=== PATIENT | male | born 1945 | race Caucasian/White ===

== ENCOUNTER 2020-07-01 12:41 | Inpatient (IN) | payer MEDICARE, OTHER, SELFPAY ==
[2020-07-01] VITALS (8 sets, daily range): BP systolic 113–157; BP diastolic 51–61; PULSE 65–100; RESP 16–18; TEMP 36.5–37.1; O2SAT 99–100
--- NOTE | 2020-07-01 | CT_ITS ---
EXAMINATION: CT ABDOMEN AND PELVIS WITHOUT CONTRAST CLINICAL INFORMATION: Abdominal pain. Gross hematuria. COMPARISON: CT abdomen pelvis 01/02/2013 TECHNIQUE: Multidetector volumetric imaging was performed from the superior aspect of the liver through the pubic symphysis. Sagittal and coronal reformatted images were obtained on the technologist's workstation. This CT examination was performed using dose optimization techniques as appropriate, variously including the following: *Automated exposure control *Adjustment of mA and/or kV according to patient size (this includes techniques or standardized protocols for targeted exams where dose is matched to indication/reason for exam; i.e. extremities or head) *Use of iterative reconstruction technique DLP: 468 mGy-cm FINDINGS: LUNG BASES: The visualized lung bases are unremarkable. LIVER, GALLBLADDER, AND BILIARY TREE: The liver is normal in size, shape, and attenuation. No focal hepatic lesion or biliary ductal dilatation is present. The gallbladder is unremarkable with no evidence of radiopaque gallstones, gallbladder wall thickening, or obvious pericholecystic inflammatory changes. PANCREAS: Unremarkable. SPLEEN: Unremarkable. ADRENAL GLANDS: Unremarkable. KIDNEYS AND URETERS: The kidneys are normal in size, shape, and attenuation. No hydronephrosis, hydroureter, or calculi seen. No perinephric stranding. There are linear vascular calcifications in the renal [place] bilaterally. BLADDER: There is a large lobulated mass at the base of the bladder measuring approximately 6 x 3.5 cm. This is highly suspicious for neoplasm. GASTROINTESTINAL TRACT: The small and large bowel are unremarkable. The appendix is unremarkable. ABDOMINAL WALL: No significant hernia is appreciated. LYMPH NODES: Normal. VASCULAR: Extensive vascular calcifications in the abdomen and pelvis. There is no aneurysm. PELVIC VISCERA: Prostate measures 4.6 cm transverse. Coarse calcifications within the prostate. OSSEOUS STRUCTURES: Multilevel degenerative spondylosis spine. Vacuum disc phenomenon L5-S1 L2-L3 with vertebral endplate osteosclerosis and spurring. There is multilevel degenerative spurs and facet joint arthrosis. There is minimal anterior listhesis of L4 and L5. This is due to facet joint disease. There is no spondylolysis. IMPRESSION: Lobulated mass in the bladder suspicious for neoplasm. Consider direct visualization.
--- NOTE | 2020-07-01 15:10 | ED_ITS ---
HPI - Male Genitourinary General Chief complaint: Urogenital-Male Stated complaint: urinating blood Time Seen by Provider: 07/01/20 15:09 Source: patient Mode of arrival: ambulatory Limitations: no limitations History of Present Illness HPI Narrative: 75 y/o male with history of bladder cancer s/p TURBT in 2018 by SHERRELL Scott with PVD s/p right RKA presents with hematuria x5 days. He was seen by Dr. Sam on Sunday - per patient he was diagnosed with UTI and started on Ciprofloxacin BID. His symptoms have not improved. He now has some central abdominal discomfort and diarrhea as well as chills. MD Complaint: dysuria and other (hematuria ) Onset (ago): day(s) (5) Duration: constant Severity: severe Severity scale (1-10): 10 Quality: burning Relieving factors: none Exacerbating factors: urination Associated symptoms: Reports blood in urine Related Data Sexually active: No Allergies Allergy/AdvReac Type Severity Reaction Status Date / Time No Known Allergies Allergy Unverified 06/17/20 19:08 [No Known Allergies*] Review of Systems Constitutional: Constitutional: Reports chills ENT: Denies dizziness Cardiovascular: Cardiovascular: Denies chest pain, Denies syncope, Denies rapid heart rate and Denies dyspnea Respiratory: Respiratory: Denies dyspnea Gastrointestinal: Gastrointestinal: Reports abdominal pain, Denies melena, Denies hematochezia, Denies change in stool character, Reports diarrhea, Denies nausea and Denies vomiting Genitourinary: Genitourinary: Reports hematuria, Reports dysuria, Denies testicular pain and Reports urinary urgency Musculoskeletal: Musculoskeletal: Denies back pain Neurologic: Denies dizziness and Denies syncope Endocrine: Endocrine: Reports no additional endocrine complaints Hematologic/Lymphatic: Hematologic/Lymphatic: Denies easy bleeding and Denies easy bruising PMFSH Past Medical History Medical History Bladder cancer Social History Social History Alcohol intake: unknown Smoking Status: Smoker, status unknown Smoked in Last 30 Days: No Use of substances other than those prescribed or required for medical reasons: No Advance Directives: No Advance Directives Information Provided: No Physical Exam Vital Signs and I&O and Narrative: Vital Signs and I&O: Vital Signs Temp 98.7 F 07/01/20 19:58 Pulse 84 07/01/20 19:58 Resp 18 07/01/20 19:58 BP 136/51 L 07/01/20 19:58 Pulse Ox 99 07/01/20 15:37 Intake & Output 07/01/20 07/01/20 07/02/20 06:59 18:59 06:59 Intake Total 2049 Balance 2049 Intake: Intake, IV Amoun t 2049 cefTRIAXone so dium 1 gm In 0.9 50 / 50 % Sodium Chlor tadeo 50 ml @ 100 mls/hr IV ONCE ONE Rx#: [id number] 0.9 % Sodium C hloride 1,000 ml 1999 / 1999 @ 999 mls/hr I VCONT .Q1H1M ESAU Rx#:[id number] Const: General: cooperative, healthy appearing, comfortable, no acute distress, well developed, alert and awake Orientation/consciousness: oriented to person, oriented to place and oriented to time HENMT: Head: Yes normal to inspection Ears: hearing grossly normal bilaterally Eyes: General: appearance normal, both eyes and all related structures Neck: Neck: Yes normal visual inspection Chest: Chest palpation & inspection: normal inspection of the chest Resp: Effort & Inspection: normal respiratory effort and able to speak in complete sentences Auscultation: clear to auscultation bilaterally Cardio: Rate: regular rate Rhythm: regular rhythm Heart sounds: S1 normal heart sound present and S2 normal heart sound present GI: Inspection: Yes normal to inspection Palpation (GI): Soft to palpation, Tenderness to palpation present (GI) periumbilically; with no rebound tenderness and no masses Percussion: Yes normal to percussion Auscultation: normal bowel sounds : General: Yes no CVA tenderness Male General Exam: Yes normal external exam Penis: normal penis Meatus: meatus normal Scrotum: scrotum normal Testes: Testes normal Back/Spine/Pelvis: Back: no CVA tenderness Skin: General skin exam: no rashes or lesions noted Neuro: General: oriented to person, oriented to place and oriented to time Course Course Hospital Course: gross hematuria on arrival, dark red with small clots. he states he is on aspirin. no SOB or chest pain. no improvement with Cirpo. Concern for resistance to quinolones. Will contact Urology office for records. Cultures, lactic, UA and labs ordered. Dispo pending results and improvement. Reevaluation(s) Reevaluation #1: hemoglobin 7.9, unknown baseline. per patient and he has been significantly bleeding for the last 5 days. He denies lightheadedness, chest pain, SOB. Admits to fatigue and generalized weakness. 3 way Palmer placed and CBI started - will order 1 unit of PRBC given active bleeding. Time: 16:39 Reevaluation #2: CT scan shows Lobulated mass in the bladder suspicious for neoplasm. Consider direct visualization. CBI going, urine starting to slowly clear. Will call hospitalist for admission. Time: 19:01 Reevaluation #3: Spoke with hospitalist about admission. She is requesting we contact Urology to inform them of the patient's bleeding, Urology has been paged. Will admit. Time: 20:34 MDM - Male Genitourinary MDM Narrative Medical decision making narrative: concern for recurrence of bladder cancer Differential Diagnosis Differential diagnosis: Likely urinary tract infection Lab Data Attestation: I reviewed the patient's lab results. Result diagrams: 07/01/20 15:32 07/01/20 15:32 Labs: Lab Results 07/01/20 07/01/20 07/01/20 Range/Units 15:00 15:32 15:32 WBC 8.8 (4.8-10.8) X10*3/uL RBC 2.58 L (4.60-5.80) X10*6/uL Hgb 7.9 L (14.0-18.0) g/dl Hct 23.6 L (42-52) % MCV 91.5 (80-98) fL MCH 30.6 (27.0-33.0) pg MCHC 33.5 (31.0-36.0) g/dl RDW 12.8 (11.0-16.0) % Plt Count 214 (160-400) X10*3/uL MPV 9.1 L (9.4-12.4) fL Immature Gran % (Auto) 0.5 H (0.0-0.4) % Neut % (Auto) 86.1 H (45-73) % Lymph % (Auto) 7.6 L (20-40) % [place] % (Auto) 5.0 (2-11) % Eos % (Auto) 0.3 (0-4) % Baso % (Auto) 0.5 (0-2) % Neut # (Auto) 7.6 (2.0-8.3) X10*3/uL Lymph # (Auto) 0.7 L (1.2-4.9) X10*3/uL [place] # (Auto) 0.4 (0.1-1.2) X10*3/uL Eos # (Auto) 0.0 (0.0-0.4) X10*3/uL Baso # (Auto) 0.0 (0.0-0.2) X10*3/uL Abs Immat Gran (auto) 0.04 H (0.00-0.03) X10*3/uL Absolute Nucleated RBC 0.000 (0.0-0.012) X10*3/uL Nucleated RBC % (auto) 0.0 (0.0-0.2) /100WBC Smear Tech's Comments VERIFIED PT (10.8-13.0) SEC INR (0.9-1.1) APTT (24.1-38.0) SEC Sodium 135 (135-145) mmol/L Potassium 4.7 (3.3-5.1) mmol/l Chloride 103 (96-108) mmol/L Carbon Dioxide 23 (22-29) mmol/L Anion Gap 14 (12-20) BUN 23 H (9-16) mg/dL Creatinine 1.26 (0.5-1.4) mg/dL Estim Creat Clear Calc TNP Estimated GFR 56 Random Glucose 210 H (60-115) mg/dL Lactic Acid (0.5-2.0) mmol/L Calcium 8.8 (8.4-10.2) mg/dL Urine Color RED Urine Appearance TURBID Urine pH 6.5 (5.0-8.0) Ur Specific [place] 1.020 (1.005-1.025) Urine Protein 3+ H (NEG-TRACE) MG/DL Urine Glucose (UA) 100 H (NEG) MG/DL Urine Ketones 5 (NEG) MG/DL Urine Blood 3+ H (NEG) Urine Nitrite POS H (NEG) Ur Leukocyte Esterase 2+ H (NEG) Urine RBC TNTC H (0) /HPF Urine WBC 5-9 H (0-4) /HPF Ur Squamous Epith Cells NONE /LPF Urine Bacteria TRACE /LPF Blood Type Antibody Screen Crossmatch 07/01/20 07/01/20 07/01/20 Range/Units 16:47 16:47 17:00 WBC (4.8-10.8) X10*3/uL RBC (4.60-5.80) X10*6/uL Hgb (14.0-18.0) g/dl Hct (42-52) % MCV (80-98) fL MCH (27.0-33.0) pg MCHC (31.0-36.0) g/dl RDW (11.0-16.0) % Plt Count (160-400) X10*3/uL MPV (9.4-12.4) fL Immature Gran % (Auto) (0.0-0.4) % Neut % (Auto) (45-73) % Lymph % (Auto) (20-40) % [place] % (Auto) (2-11) % Eos % (Auto) (0-4) % Baso % (Auto) (0-2) % Neut # (Auto) (2.0-8.3) X10*3/uL Lymph # (Auto) (1.2-4.9) X10*3/uL [place] # (Auto) (0.1-1.2) X10*3/uL Eos # (Auto) (0.0-0.4) X10*3/uL Baso # (Auto) (0.0-0.2) X10*3/uL Abs Immat Gran (auto) (0.00-0.03) X10*3/uL Absolute Nucleated RBC (0.0-0.012) X10*3/uL Nucleated RBC % (auto) (0.0-0.2) /100WBC Smear Tech's Comments PT 12.9 (10.8-13.0) SEC INR 1.1 (0.9-1.1) APTT 28.7 (24.1-38.0) SEC Sodium (135-145) mmol/L Potassium (3.3-5.1) mmol/l Chloride (96-108) mmol/L Carbon Dioxide (22-29) mmol/L Anion Gap (12-20) BUN (9-16) mg/dL Creatinine (0.5-1.4) mg/dL Estim Creat Clear Calc Estimated GFR Random Glucose (60-115) mg/dL Lactic Acid 1.1 (0.5-2.0) mmol/L Calcium (8.4-10.2) mg/dL Urine Color Urine Appearance Urine pH (5.0-8.0) Ur Specific [place] (1.005-1.025) Urine Protein (NEG-TRACE) MG/DL Urine Glucose (UA) (NEG) MG/DL Urine Ketones (NEG) MG/DL Urine Blood (NEG) Urine Nitrite (NEG) Ur Leukocyte Esterase (NEG) Urine RBC (0) /HPF Urine WBC (0-4) /HPF Ur Squamous Epith Cells /LPF Urine Bacteria /LPF Blood Type B Positive Antibody Screen NEGATIVE Crossmatch See Detail Discharge Plan Discharge Clinical Impression: Acute blood loss anemia, Urinary tract infection, Bladder tumor Patient Disposition: Admitted As Inpatient
[2020-07-01 15:35] LABS: Glucose Urine UA 100 MG/DL (NEG); Nitrite Urine POS (NEG); PH 6.5 (5.0-8.0); Urine Blood 3+ (NEG); Urine Ketones 5 MG/DL (NEG); Urine Protein 3+ MG/DL (NEG-TRACE)
[2020-07-01 15:39] LABS: Basophils Percent Auto 0.5 % (0-2); Eosinophils Percent Auto 0.3 % (0-4); Hematocrit 23.6 % (42-52); Hemoglobin 7.9 g/dl (14.0-18.0); Imm Gran Abs Auto 0.04 X10*3/uL (0.00-0.03); Imm Gran Pct Auto 0.5 % (0.0-0.4); Lymphocytes Absolute Auto 0.7 X10*3/uL (1.2-4.9); Lymphocytes Percent Auto 7.6 % (20-40); MANUAL DIFF FLAG SCAN; Mean Corpuscular HGB Conc 33.5 g/dl (31.0-36.0); Mean Corpuscular Hemoglobin 30.6 pg (27.0-33.0); Mean Corpuscular Volume 91.5 fL (80-98); Mean Platelet Volume 9.1 fL (9.4-12.4); Monocytes Absolute Auto 0.4 X10*3/uL (0.1-1.2); Neutrophils Absolute Auto 7.6 X10*3/uL (2.0-8.3); Neutrophils Percent Auto 86.1 % (45-73); Platelet Count 214 X10*3/uL (160-400); Red Blood Count 2.58 X10*6/uL (4.60-5.80); Red Cell Distribution Width 12.8 % (11.0-16.0); SCAN SMEAR FLAG 1; White Blood Count 8.8 X10*3/uL (4.8-10.8)
[2020-07-01 15:42] LABS: Appearance Urine TURBID; Color Urine RED
[2020-07-01 15:43] LABS: Leukocyte Esterase Urine 2+ (NEG)
[2020-07-01 15:49] LABS: Bacteria Urine TRACE /LPF; RBC Urine TNTC /HPF (0)
[2020-07-01 16:09] LABS: Anion Gap 14 (12-20); Blood Urea Nitrogen 23 mg/dL (9-16); Calcium 8.8 mg/dL (8.4-10.2); Carbon Dioxide 23 mmol/L (22-29); Chloride 103 mmol/L (96-108); Estimated Glomerular Filt Rate 56; Glucose Random 210 mg/dL (60-115); Potassium 4.7 mmol/l (3.3-5.1); Sodium 135 mmol/L (135-145)
[2020-07-01 16:13] LABS: SLIDE REVIEW VERIFIED
[2020-07-01] MEDS: cefTRIAXone sodium 1 GM in 0.9 % Sodium Chloride 50 ML IV (17:00)
[2020-07-01] MEDS: 0.9 % Sodium Chloride 1,000 ML 999 ML IVCONT ×2 (17:02)
[2020-07-01 17:04] LABS: INTERNATIONAL NORM RATIO 1.1 (0.9-1.1); Prothrombin Time 12.9 SEC (10.8-13.0)
[2020-07-01 17:07] LABS: Partial Thromboplastin Time 28.7 SEC (24.1-38.0)
[2020-07-01 17:19] LABS: Lactic Acid 1.1 mmol/L (0.5-2.0)
[2020-07-01] MEDS: Lidocaine HCl 2 % Urojet 10 ML JEL.PF.APP TOPICAL (18:45)
--- NOTE | 2020-07-01 18:55 | PC.NURSE ---
output of 2300ml red urine. bs showed empty bladder
--- NOTE | 2020-07-01 20:04 | PC.NURSE ---
pt cbi still infusing. large clot manually extracted from catheter. pt denies any increase in pain. plan for insuion of 1 unit of rbc. pt agreeable. conrad james at bedside for consent signing. pt neuro intact.
--- NOTE | 2020-07-01 21:49 | PC.NURSE ---
PT IN SEVERE PAIN, RIKY BOOTHE AWARE. PT BLOOD STARTED
[2020-07-01] MEDS: Morphine Sulfate 4 MG/ML CARTRIDGE IVPUSH (22:09)
--- NOTE | 2020-07-01 22:10 | PC.NURSE ---
PT GIVEN IV MORPHINE FOR PAIN. 3000 CC OF FLUID INTO CATHETER 3000 OUT. PT URINE CLEARING. PENDING NURSE TO NURSE
--- NOTE | 2020-07-01 23:18 | PC.NURSE ---
report faxed to [facility] [place] at this time
--- NOTE | 2020-07-01 23:42 | PC.NURSE ---
pt blood finished, total of 3000 cc of waer into bladder. 3000 cc out of catheter bag. pending transport to [facility] [place]
[2020-07-02] VITALS (7 sets, daily range): BP systolic 102–133; BP diastolic 49–63; PULSE 74–86; RESP 16–20; TEMP 36.6–37; O2SAT 94–97; BMI 22.6
[2020-07-02] MEDS: 0.9 % Sodium Chloride Flush 3 ML SYRINGE 2 ML IVFLUSH ×3 (01:49→23:38)
[2020-07-02] MEDS: 0.9 % Sodium Chloride 1,000 ML 100 ML IVCONT ×3 (01:50→22:02)
--- NOTE | 2020-07-02 05:17 | P.HPIM_ITS ---
History of Present Illness Date of Service: 07/01/20 Chief Complaint: bloody urine this is a 75-year-old male with past medical history of diabetes, hypertension, bladder cancer in 2018, who presents to the hospital after having urine in blood since Sunday. Patient reports that he started having bloody urine on Sunday, went to his urologist on Sunday was given antibiotics, and sent home. Patient continued to have bloody urine until today. He called his urologist this morning and was advised to come to the hospital. He is complaining of dysuria, and frequency as well as right lower quadrant abdominal pain. He has chills with no fever, the abdominal pain is described as sharp, 8/10, nonradiating. Constant. Patient otherwise has no headache, shortness of breath, chest pain, no nausea or vomiting, no lower extremity edema. On arrival to the ED patient hemodynamically stable with no significant abnormal vitals. Blood pressure stable with no tachycardia significant for hemoglob of 7.9, hematocrit of 23.6, BUN of 23 with a creatinine of 1.26. labs otherwise unremarkable. Patient is receiving 1 unit of PRBC and undergoing CBI in the ED patient will be admitted for further management Past medical history: Diabetes, bladder cancer in 2018 s/p TURP, hypertension Surgical history: TURP family history: Denies social history: Comes from home, lives with his , ambulates independently, denies tobacco alcohol or illicit drug Review of Systems Review of Systems: Yes all other systems are reviewed and are negative ENT: Denies dizziness Cardiovascular: Cardiovascular: Denies syncope Neurologic: Denies dizziness and Denies syncope [facility] [place] Medical History Bladder cancer Social History Household Members: Spouse Housing: House Do you presently have visiting nurse or other home services: No Alcohol intake: unknown Smoking Status: Smoker, status unknown Smoked in Last 30 Days: Yes Patient Interested in Nicotine Replacement: No Patient Given Instructions on How to Stop Smoking: No Second Hand Smoke Exposure: No Use of substances other than those prescribed or required for medical reasons: No Currently Displaying Signs/Symptoms of Drug Intoxication Withdrawal: No Any prior treatment program specific to substance use: No Have you been hit, kicked, punched, or otherwise hurt by someone within the past year? If so, by whom?: No Do you feel safe in your current relationship?: Yes Is there a partner from a previous relationship who is making you feel unsafe now?: No Are you made to feel afraid or neglected: No Advance Directives: No Advance Directives Information Provided: No Recently lost weight without trying: No Meds Allergies Allergy/AdvReac Type Severity Reaction Status Date / Time No Known Allergies Allergy Verified 07/01/20 22:12 [No Known Allergies*] Home Medications Medication Instructions Recorded Confirmed Type atorvastatin 20 mg PO BEDTIME 07/01/20 07/01/20 History ciprofloxacin HCl [Cipro] 500 mg PO BID 07/01/20 07/01/20 History glipizide 5 mg PO DAILY 07/01/20 07/01/20 History lisinopril 20 mg PO DAILY 07/01/20 07/01/20 History Physical Exam Vital Signs and Narrative: Vital Signs: Last Vital Signs Temp 97.9 F 07/02/20 03:17 Pulse 75 07/02/20 03:17 Resp 16 07/02/20 03:17 BP 133/63 07/02/20 03:17 Pulse Ox 95 07/02/20 03:17 Body Mass Index 22.6 Const: General: cooperative and no acute distress Orientation/consciousness: patient oriented x3 Eyes: General: appearance normal, both eyes and all related structures Pupils: Equal, round and reactive pupils present Resp: Effort & Inspection: normal respiratory effort, able to speak in complete sentences and abnormal respiratory pattern Auscultation: clear to auscultation bilaterally Cardio: Rate: regular rate Rhythm: regular rhythm GI: Palpation (GI): Soft to palpation Auscultation: normal bowel sounds : Other: CBI in place, Palmer catheterization contains red urine Skin: General skin exam: no rashes or lesions noted Neuro: General: patient oriented x3 Cranial nerves: Yes Equal, round and reactive pupils present Cognition (Neuro): normal cognition Extrem: General: Yes normal to inspection and Yes no pedal edema Results Labs Labs: Laboratory Tests 07/01/20 07/01/20 07/01/20 15:00 15:32 15:32 WBC 8.8 RBC 2.58 L Hgb 7.9 L Hct 23.6 L MCV 91.5 MCH 30.6 MCHC 33.5 RDW 12.8 Plt Count 214 MPV 9.1 L Immature Gran % (Auto) 0.5 H Neut % (Auto) 86.1 H Lymph % (Auto) 7.6 L [place] % (Auto) 5.0 Eos % (Auto) 0.3 Baso % (Auto) 0.5 Neut # (Auto) 7.6 Lymph # (Auto) 0.7 L [place] # (Auto) 0.4 Eos # (Auto) 0.0 Baso # (Auto) 0.0 Abs Immat Gran (auto) 0.04 H Absolute Nucleated RBC 0.000 Nucleated RBC % (auto) 0.0 Smear Tech's Comments VERIFIED PT INR APTT Sodium 135 Potassium 4.7 Chloride 103 Carbon Dioxide 23 Anion Gap 14 BUN 23 H Creatinine 1.26 Estim Creat Clear Calc TNP Estimated GFR 56 Random Glucose 210 H Lactic Acid Calcium 8.8 Urine Color RED Urine Appearance TURBID Urine pH 6.5 Ur Specific [place] 1.020 Urine Protein 3+ H Urine Glucose (UA) 100 H Urine Ketones 5 Urine Blood 3+ H Urine Nitrite POS H Ur Leukocyte Esterase 2+ H Urine RBC TNTC H Urine WBC 5-9 H Ur Squamous Epith Cells NONE Urine Bacteria TRACE Blood Type Antibody Screen Crossmatch 07/01/20 07/01/20 07/01/20 16:47 16:47 17:00 WBC RBC Hgb Hct MCV MCH MCHC RDW Plt Count MPV Immature Gran % (Auto) Neut % (Auto) Lymph % (Auto) [place] % (Auto) Eos % (Auto) Baso % (Auto) Neut # (Auto) Lymph # (Auto) [place] # (Auto) Eos # (Auto) Baso # (Auto) Abs Immat Gran (auto) Absolute Nucleated RBC Nucleated RBC % (auto) Smear Tech's Comments PT 12.9 INR 1.1 APTT 28.7 Sodium Potassium Chloride Carbon Dioxide Anion Gap BUN Creatinine Estim Creat Clear Calc Estimated GFR Random Glucose Lactic Acid 1.1 Calcium Urine Color Urine Appearance Urine pH Ur Specific [place] Urine Protein Urine Glucose (UA) Urine Ketones Urine Blood Urine Nitrite Ur Leukocyte Esterase Urine RBC Urine WBC Ur Squamous Epith Cells Urine Bacteria Blood Type B Positive Antibody Screen NEGATIVE Crossmatch See Detail Assessment and Plan (1) Acute blood loss anemia: Status: Acute this is secondary to hematuria, CT of the abdomen and pelvis showed lobulated mass in the bladder suspicious for neoplasm in a patient who has a history of bladder cancer status post TURP in 2018 hemodynamically stable plan: Receiving 1 units of PRBC follow H&H urology consult (2) Urinary tract infection: Qualifiers: Hematuria presence: with hematuria Urinary tract infection type: acute cystitis Qualified Code(s): N30.01 - Acute cystitis with hematuria Status: Acute has dysuria, frequency, with positive UA plan: continue ceftriaxone follow urine culture (3) Bladder tumor: Status: Acute patient with history of bladder cancer status post TURP in 2018, returns now with hematuria found to have bladder tumor on CT scan plan: - Urology consult for possible cystoscopy and further intervention (4) Hypertension: Status: Acute stable will hold lisinopril in the setting of acute bleed as potential for hypotension (5) Peripheral vascular disease: Status: Acute continue atorvastatin (6) Diabetes: Status: Acute hold glipizide Start low-dose sliding scale insulin and diabetic diet
[2020-07-02 05:27] LABS: MANUAL DIFF FLAG NO
[2020-07-02 05:36] LABS: Basophils Percent Auto 0.3 % (0-2); Hematocrit 24.7 % (42-52); Hemoglobin 8.6 g/dl (14.0-18.0); Imm Gran Abs Auto 0.13 X10*3/uL (0.00-0.03); Imm Gran Pct Auto 0.8 % (0.0-0.4); Lymphocytes Absolute Auto 0.8 X10*3/uL (1.2-4.9); Lymphocytes Percent Auto 5.2 % (20-40); Mean Corpuscular HGB Conc 34.8 g/dl (31.0-36.0); Mean Corpuscular Hemoglobin 31.2 pg (27.0-33.0); Mean Corpuscular Volume 89.5 fL (80-98); Mean Platelet Volume 9.3 fL (9.4-12.4); Monocytes Absolute Auto 1.1 X10*3/uL (0.1-1.2); Neutrophils Absolute Auto 13.7 X10*3/uL (2.0-8.3); Neutrophils Percent Auto 86.7 % (45-73); Platelet Count 194 X10*3/uL (160-400); Red Blood Count 2.76 X10*6/uL (4.60-5.80); Red Cell Distribution Width 13.5 % (11.0-16.0); White Blood Count 15.8 X10*3/uL (4.8-10.8)
[2020-07-02 06:12] LABS: Anion Gap 12 (12-20); Blood Urea Nitrogen 16 mg/dL (9-16); Carbon Dioxide 22 mmol/L (22-29); Chloride 104 mmol/L (96-108); Creatinine Clr Calc Pharmacy 69.4; Estimated Glomerular Filt Rate > 60; Glucose Random 190 mg/dL (60-115); Potassium 3.9 mmol/l (3.3-5.1); Sodium 134 mmol/L (135-145)
[2020-07-02 06:18] LABS: Calcium 7.9 mg/dL (8.4-10.2)
--- NOTE | 2020-07-02 06:34 | PC.NURSE ---
ADMIT TO 484-1: ALERT..ORIENTED X3..SPEECH CLEAR ..RESPIRATIONS EASY..VSS..NSR...CBI INFUSING FROM ER DEPT...GONZALEZ DRAINING PUNCH COLOURED URINE WITH CLOTS...C/O BLADDER PRESSURE WHEN CBI FLOW-RATE SLOWED...HAND IRRIGATED FOR LARGE CLOTS...CBI DRAINING AND RELIEF OF BLADDER PRESSURE PER PATIENT.. CBI CONTINUES TO REQUIRE HIGH FLOW RATE TO MAINTAIN PATENCY
[2020-07-02 07:33] LABS: Glucose, Whole Blood 157 mg/dL (60-115)
[2020-07-02] MEDS: Insulin Lispro 100 UNIT/ML 3 ML VIAL SUBCUT (08:06)
--- NOTE | 2020-07-02 11:16 | MHC.CM.PN ---
CM met with patient at the bedside who reports he is independent and lives with his . Patient does have a HCP, copy requested. Discussed discharge plans home no services. family will provide transport. CM will continue to follow for discharge needs.
[2020-07-02 11:19] LABS: Glucose, Whole Blood 116 mg/dL (60-115)
--- NOTE | 2020-07-02 15:49 | HO.PM.IMPN ---
Subjective Subjective Date of Service: 07/02/20 Interval History: 75-year-old gentleman with past medical history of diabetes hypertension bladder cancer presented to [facility] due to hematuria for last several days patient complained of dysuria and urinary frequency associated with right lower abdominal pain patient was noted to have a hematocrit of 23.6 a creatinine of 1.26 this a.m. patient urine is punched colored receiving CBI complaining of persistent lower abdominal discomfort but denies urinary symptoms, no fever chills overnight no other acute issues. Review of Systems [employer] no headache, no dizziness CVS no chest pain, no palpitation gastroenterology no nausea, no vomiting, no diarrhea skin no rash Physical Exam Vital Signs and I&O and Narrative: Vital Signs and I&O: Vital Signs Temp 98.2 F 07/02/20 11:22 Pulse 75 07/02/20 11:22 Resp 19 07/02/20 11:22 BP 102/53 L 07/02/20 11:22 Pulse Ox 94 07/02/20 11:22 Intake & Output 07/01/20 07/02/20 07/02/20 18:59 06:59 18:59 Intake Total 2049 -8041.667 / -8041. 667 Output Total 650 / 650 9480 / 9480 Balance 1400 / 1400 -78812.667 / -1752 1.667 Urine Output (Aver age ml/kg/hr) 0.76 11.02 Weight 71.668 kg Intake: Intake, Oral Yasmin unt 480 / 480 Intake (Blood Pr oduct) Amount 0 / 0 Red Blood Cell s (E0382) Unit 0 / 0 [id number] Continuous Bladd er Irrigation -9480 / -9480 Fluid - Amount R etained 3-way Urethral -9480 / -9480 Intake, IV Amoun t 2049 958.333 / 958.333 cefTRIAXone so dium 1 gm In 0.9 50 / 50 % Sodium Chlor tadeo 50 ml @ 100 mls/hr IV ONCE ONE Rx#: [id number] 0.9 % Sodium C hloride 1,000 ml 1999 958.333 / 958.333 @ 100 mls/hr I VCONT .Q10H ESAU Rx#:[id number] Output: Output, Urine Am ount (Catheter) 650 / 650 9480 / 9480 3-way Urethral 650 / 650 9480 / 9480 Other: NPO Yes Urine Color Bloody Red Tinged Continuous Bladd er Irrigation Fluid - Amount I nstilled 3-way Urethral 3,000 Continuous Bladd er Irrigation Fluid - Amount D rained 3-way Urethral 3,900 Body Mass Index 22.6 General: no acute distress ,patient oriented x3 Neck is supple Resp: normal respiratory effort, clear to auscultation bilaterally Cardio: Rate: regular rate Rhythm GI: Soft to palpation mild lower abdominal discomfort, normal bowel sounds : Other: CBI in place, Palmer catheterization contains red urine Skin: no rashes or lesions noted Neuro: patient oriented x3 ,normal cognition Extrem: no pedal edema Objective Data Current Medications Generic Name Dose Route Start Last Admin Trade Name Freq PRN Reason Stop Dose Admin Acetaminophen 650 mg 07/02/20 01:32 Acetaminophen 650 Mg Supp.Rect [place] Q6H PRN Pain, Mild (Pain Scale 1-3) Atorvastatin Calcium 20 mg 07/02/20 21:00 Atorvastatin Calcium 20 Mg Tablet PO BEDTIME ESAU Sodium Chloride 1,000 mls @ 100 mls/hr 07/02/20 01:32 07/02/20 11:25 Ns IVCONT 100 mls/hr .Q10H ESAU Administration Ceftriaxone Sodium 1 gm/ 50 mls @ 100 mls/hr 07/02/20 17:00 Sodium Chloride IV Q24H ESAU Insulin Human Lispro 0 unit 07/02/20 07:30 07/02/20 12:16 Insulin Lispro 100 Unit/Ml 3 Ml Vial SUBCUT Not Given QIDACHS [facility] Protocol Magnesium Hydroxide 30 ml 07/02/20 01:32 Milk Of Magnesia 30 Ml Oral.Susp PO DAILY PRN Constipation Ondansetron HCl 4 mg 07/02/20 01:32 Ondansetron Hcl 4 Mg/2 Ml Vial IVPUSH Q8H PRN Nausea and Vomiting Oxycodone HCl 5 mg 07/02/20 01:32 Oxycodone Hcl Immed Release 5 Mg Tablet PO Q6H PRN Pain, Severe (Pain Scale 7-10) Pharmacy Consult 1 each 07/01/20 20:37 Consult Rx Perform Med Rec MISCELLANE ONCE PRN Consult order Sodium Chloride 2 ml 07/02/20 01:32 07/02/20 08:07 0.9 % Sodium Chloride Flush 3 Ml Syringe IVFLUSH 2 ml QSHIFT ESAU Administration Labs CBC & Chem 7: 07/02/20 05:11 07/02/20 05:11 Labs: Laboratory Results - last 24 hr 07/01/20 07/01/20 07/01/20 15:00 15:32 15:32 MCV MCH MCHC RDW Plt Count MPV Immature Gran % (Auto) Neut % (Auto) Lymph % (Auto) [place] % (Auto) Eos % (Auto) Baso % (Auto) Neut # (Auto) Lymph # (Auto) [place] # (Auto) Eos # (Auto) Baso # (Auto) Abs Immat Gran (auto) Absolute Nucleated RBC Nucleated RBC % (auto) Smear Tech's Comments VERIFIED PT INR APTT Anion Gap 14 Estim Creat Clear Calc TNP Estimated GFR 56 POC Glucose Random Glucose 210 H Lactic Acid Calcium 8.8 Urine RBC TNTC H Urine WBC 5-9 H Ur Squamous Epith Cells NONE Urine Bacteria TRACE Blood Type Antibody Screen Crossmatch 07/01/20 07/01/20 07/01/20 16:47 16:47 17:00 MCV MCH MCHC RDW Plt Count MPV Immature Gran % (Auto) Neut % (Auto) Lymph % (Auto) [place] % (Auto) Eos % (Auto) Baso % (Auto) Neut # (Auto) Lymph # (Auto) [place] # (Auto) Eos # (Auto) Baso # (Auto) Abs Immat Gran (auto) Absolute Nucleated RBC Nucleated RBC % (auto) Smear Tech's Comments PT 12.9 INR 1.1 APTT 28.7 Anion Gap Estim Creat Clear Calc Estimated GFR POC Glucose Random Glucose Lactic Acid 1.1 Calcium Urine RBC Urine WBC Ur Squamous Epith Cells Urine Bacteria Blood Type B Positive Antibody Screen NEGATIVE Crossmatch See Detail 07/02/20 07/02/20 07/02/20 05:11 05:11 07:28 MCV 89.5 MCH 31.2 MCHC 34.8 RDW 13.5 Plt Count 194 MPV 9.3 L Immature Gran % (Auto) 0.8 H Neut % (Auto) 86.7 H Lymph % (Auto) 5.2 L [place] % (Auto) 7.0 Eos % (Auto) 0.0 Baso % (Auto) 0.3 Neut # (Auto) 13.7 H Lymph # (Auto) 0.8 L [place] # (Auto) 1.1 Eos # (Auto) 0.0 Baso # (Auto) 0.0 Abs Immat Gran (auto) 0.13 H Absolute Nucleated RBC 0.000 Nucleated RBC % (auto) 0.0 Smear Tech's Comments PT INR APTT Anion Gap 12 Estim Creat Clear Calc 69.4 Estimated GFR > 60 POC Glucose 157 H Random Glucose 190 H Lactic Acid Calcium 7.9 L Urine RBC Urine WBC Ur Squamous Epith Cells Urine Bacteria Blood Type Antibody Screen Crossmatch 07/02/20 11:11 MCV MCH MCHC RDW Plt Count MPV Immature Gran % (Auto) Neut % (Auto) Lymph % (Auto) [place] % (Auto) Eos % (Auto) Baso % (Auto) Neut # (Auto) Lymph # (Auto) [place] # (Auto) Eos # (Auto) Baso # (Auto) Abs Immat Gran (auto) Absolute Nucleated RBC Nucleated RBC % (auto) Smear Tech's Comments PT INR APTT Anion Gap Estim Creat Clear Calc Estimated GFR POC Glucose 116 H Random Glucose Lactic Acid Calcium Urine RBC Urine WBC Ur Squamous Epith Cells Urine Bacteria Blood Type Antibody Screen Crossmatch Microbiology Microbiology Results: Microbiology 07/01/20 16:43 Urine clean catch - Clean Catch Midstream Urine Culture - Preliminary No growth to date. Assessment and Plan (1) Acute blood loss anemia: Status: Acute (2) Urinary tract infection: Status: Acute (3) Bladder tumor: Status: Acute (4) Hypertension: Status: Acute (5) Peripheral vascular disease: Status: Acute (6) Diabetes: Status: Acute Assessment and Plan: acute blood loss anemia due to hematuria patient receive 1 unit of packed RBC hematocrit improved, will continue CBI urine is getting clearer, patient seen by Dr. Fregoso he recommend to continue CBI and follow CBC if patient be hematuria clears then he recommend to discharge patient home to have outpatient cystoscopy but if patient continued with hematuria than it he will undergo cystoscopy on Sunday. likely patient has recurrence of bladder cancer Will follow CBC. UTI will continue IV ceftriaxone and follow urine and blood culture hypertension hold lisinopril due to low normal blood pressure diabetes mellitus blood sugars are stable continue insulin sliding scale and diabetic diet in regard to peripheral vascular disease will continue Lipitor case discussed with Dr. Fregoso and patient inform patient about above plan of care.
[2020-07-02 17:03] LABS: Glucose, Whole Blood 120 mg/dL (60-115)
[2020-07-02] MEDS: cefTRIAXone sodium 1 GM in 0.9 % Sodium Chloride 50 ML IV (17:08)
[2020-07-02 21:11] LABS: Glucose, Whole Blood 120 mg/dL (60-115)
--- NOTE | 2020-07-02 21:59 | PC.NURSE ---
Pt c/o pain to lower abdomen and 3-way beyer catheter noted to have significant amount of drainage coming from around the catheter. The catheter was hand irrigated with large clots removed. Catheter now draining appropriately into collection bag. No further clots. Intake and output unable to measure at this time due to large volume loss in bed. Beyer collection bad drained and a new bag or saline started.
[2020-07-02] MEDS: Atorvastatin Calcium 20 MG TABLET PO (22:02)
[2020-07-03] VITALS (11 sets, daily range): BP systolic 105–152; BP diastolic 52–75; PULSE 67–80; RESP 16–20; TEMP 36.4–37.1; O2SAT 94–98
[2020-07-03 06:32] LABS: MANUAL DIFF FLAG NO
[2020-07-03 06:41] LABS: Basophils Absolute Auto 0.1 X10*3/uL (0.0-0.2); Basophils Percent Auto 0.4 % (0-2); Eosinophils Absolute Auto 0.1 X10*3/uL (0.0-0.4); Eosinophils Percent Auto 0.4 % (0-4); Hemoglobin 7.1 g/dl (14.0-18.0); Imm Gran Abs Auto 0.05 X10*3/uL (0.00-0.03); Imm Gran Pct Auto 0.4 % (0.0-0.4); Lymphocytes Absolute Auto 0.9 X10*3/uL (1.2-4.9); Lymphocytes Percent Auto 7.5 % (20-40); Mean Corpuscular HGB Conc 33.8 g/dl (31.0-36.0); Mean Corpuscular Hemoglobin 31.3 pg (27.0-33.0); Mean Corpuscular Volume 92.5 fL (80-98); Mean Platelet Volume 9.7 fL (9.4-12.4); Monocytes Absolute Auto 0.8 X10*3/uL (0.1-1.2); Monocytes Percent Auto 6.9 % (2-11); Neutrophils Absolute Auto 10.1 X10*3/uL (2.0-8.3); Neutrophils Percent Auto 84.4 % (45-73); Platelet Count 176 X10*3/uL (160-400); Red Blood Count 2.27 X10*6/uL (4.60-5.80)
[2020-07-03] MEDS: 0.9 % Sodium Chloride 1,000 ML 100 ML IVCONT ×2 (07:29→16:24)
[2020-07-03 08:13] LABS: Glucose, Whole Blood 131 mg/dL (60-115)
[2020-07-03] MEDS: Insulin Lispro 100 UNIT/ML 3 ML VIAL SUBCUT (12:20)
[2020-07-03 13:59] LABS: Glucose, Whole Blood 208 mg/dL (60-115)
--- NOTE | 2020-07-03 15:54 | HO.PM.IMPN ---
Subjective Subjective Date of Service: 07/03/20 Interval History: Patient presented due to hematuria of several days duration associated with dysuria and urinary frequency and lower abdominal discomfort. Today patient complaining of persistent lower abdominal cramping discomfort is still passing clots, hematocrit dropped to 21 patient received 1 units of packed RBC yesterday. Review of Systems General no fever, no chills no headache or dizziness CVS no chest pain, no palpitation Rrespiratory no cough no sputum, no shortness of breath Physical Exam Vital Signs and I&O and Narrative: Vital Signs and I&O: Vital Signs Temp 98 F 07/03/20 14:49 Pulse 67 07/03/20 14:49 Resp 18 07/03/20 14:49 BP 124/70 07/03/20 14:49 Pulse Ox 97 07/03/20 07:58 Intake & Output 07/02/20 07/03/20 07/03/20 18:59 06:59 18:59 Intake Total -8291.667 / -9391. 667 -1100 / -9391.667 -2705 / -2705 Output Total 9780 / 70477 2100 / 28987 4350 / 4350 Balance -35826.667 / -2127 1.667 -3200 / -09346.667 -7055 / -7055 Urine Output (Aver age ml/kg/hr) 11.37 2.44 5.06 Intake: Intake, Oral [place] unt 480 / 480 Intake (Blood Pr oduct) Amount 700 / 700 Red Blood Cell s (E0382) Unit 350 / 350 [id number] Red Blood Cell s (E0382) Unit 350 / 350 [id number] Continuous Bladd er Irrigation -9780 / -43567 -2100 / -34359 -4350 / -4350 Fluid - Amount R etained 3-way Urethral -9780 / -08460 -2100 / -06226 -4350 / -4350 Intake, IV Amoun t 1007.333 / 33 3 999 945 / 945 cefTRIAXone so dium 1 gm In 0.9 50 / 50 % Sodium Chlor tadeo 50 ml @ 100 mls/hr IV Q24H ESAU Rx#: [id number] 0.9 % Sodium C hloride 1,000 ml 958.333 / 7271.644 2599 / 1957.333 945 / 945 @ 100 mls/hr I VCONT .Q10H ESAU Rx#:[id number] Output: Output, Urine Am ount (Catheter) 9780 / 05735 2100 / 17035 4350 / 4350 3-way Urethral 9780 / 32380 2100 / 01177 4350 / 4350 Other: Breakfast % Eate n 100% Lunch % Eaten 100% Number of Bowel Movements 1 Urine CBI Urine Color Red Tinged Red Tinged [place] Tinged Continuous Bladd er Irrigation Fluid - Amount I nstilled 3-way Urethral 3,000 9,000 3,000 Continuous Bladd er Irrigation Fluid - Amount D rained 3-way Urethral 3,100 9,900 3,750 Body Mass Index 22.6 General: no acute distress ,patient oriented x3 Neck supple Resp: normal respiratory effort, clear to auscultation bilaterally Cardio: Rate: regular rate Rhythm GI: Soft to palpation mild lower abdominal discomfort, normal bowel sounds : Other: CBI in place, Palmer catheterization contains punch colored urine with few clots Skin: no rashes or lesions noted Neuro: patient oriented x3 ,normal cognition Extrem: no pedal edema Objective Data Current Medications Generic Name Dose Route Start Last Admin Trade Name Freq PRN Reason Stop Dose Admin Acetaminophen 650 mg 07/02/20 01:32 Acetaminophen 650 Mg Supp.Rect [place] Q6H PRN Pain, Mild (Pain Scale 1-3) Atorvastatin Calcium 20 mg 07/02/20 21:00 07/02/20 22:02 Atorvastatin Calcium 20 Mg Tablet PO 20 mg BEDTIME ESAU Administration Sodium Chloride 1,000 mls @ 100 mls/hr 07/02/20 01:32 07/03/20 07:29 Ns IVCONT 100 mls/hr .Q10H ESAU Administration Ceftriaxone Sodium 1 gm/ 50 mls @ 100 mls/hr 07/02/20 17:00 07/02/20 18:12 Sodium Chloride IV Infused Q24H ESAU Infusion Insulin Human Lispro 0 unit 07/02/20 07:30 07/03/20 12:20 Insulin Lispro 100 Unit/Ml 3 Ml Vial SUBCUT 4 unit QIDACHS ESAU Administration Protocol Magnesium Hydroxide 30 ml 07/02/20 01:32 Milk Of Magnesia 30 Ml Oral.Susp PO DAILY PRN Constipation Ondansetron HCl 4 mg 07/02/20 01:32 Ondansetron Hcl 4 Mg/2 Ml Vial IVPUSH Q8H PRN Nausea and Vomiting Oxycodone HCl 5 mg 07/02/20 01:32 Oxycodone Hcl Immed Release 5 Mg Tablet PO Q6H PRN Pain, Severe (Pain Scale 7-10) Pharmacy Consult 1 each 07/01/20 20:37 Consult Rx Perform Med Rec MISCELLANE ONCE PRN Consult order Sodium Chloride 2 ml 07/02/20 01:32 07/03/20 07:30 0.9 % Sodium Chloride Flush 3 Ml Syringe IVFLUSH Not Given QSHIFT [facility] Labs CBC & Chem 7: 07/03/20 05:50 07/02/20 05:11 Labs: Laboratory Results - last 24 hr 07/01/20 07/02/20 07/02/20 17:00 16:59 21:07 MCV MCH MCHC RDW Plt Count MPV Immature Gran % (Auto) Neut % (Auto) Lymph % (Auto) [place] % (Auto) Eos % (Auto) Baso % (Auto) Neut # (Auto) Lymph # (Auto) [place] # (Auto) Eos # (Auto) Baso # (Auto) Abs Immat Gran (auto) Absolute Nucleated RBC Nucleated RBC % (auto) POC Glucose 120 H 120 H Blood Type B Positive Antibody Screen NEGATIVE Crossmatch See Detail 07/03/20 07/03/20 07/03/20 05:50 07:57 11:18 MCV 92.5 MCH 31.3 MCHC 33.8 RDW 14.0 Plt Count 176 MPV 9.7 Immature Gran % (Auto) 0.4 Neut % (Auto) 84.4 H Lymph % (Auto) 7.5 L [place] % (Auto) 6.9 Eos % (Auto) 0.4 Baso % (Auto) 0.4 Neut # (Auto) 10.1 H Lymph # (Auto) 0.9 L [place] # (Auto) 0.8 Eos # (Auto) 0.1 Baso # (Auto) 0.1 Abs Immat Gran (auto) 0.05 H Absolute Nucleated RBC 0.000 Nucleated RBC % (auto) 0.0 POC Glucose 131 H 208 H Blood Type Antibody Screen Crossmatch Microbiology Microbiology Results: Microbiology 07/01/20 16:43 Urine clean catch - Clean Catch Midstream Urine Culture - Final No growth. 07/01/20 16:47 Blood - Venous Blood Culture - Preliminary No growth after 24 hours. 07/01/20 16:47 Blood - Venous Blood Culture - Preliminary No growth after 24 hours. Assessment and Plan (1) Acute blood loss anemia: Status: Acute (2) Urinary tract infection: Status: Acute (3) Bladder tumor: Status: Acute (4) Hypertension: Status: Acute (5) Peripheral vascular disease: Status: Acute (6) Diabetes: Status: Acute Assessment and Plan: acute blood loss anemia due to hematuria patient receive 1 unit of packed RBC hematocrit improved, but due to persistent hematuria hematocrit dropped again today to 21 will transfuse 2 units of packed RBC will continue CBI urine patient seen by Dr. Fregoso he recommend to continue CBI and follow CBC if patient hematuria clears then he recommend to discharge patient home to have outpatient cystoscopy but if patient continued with hematuria than it he will undergo cystoscopy on Sunday. likely patient has recurrence of bladder cancer follow CBC tonight and again at a.m. will add belladonna suppository for abdominal cramping and continue oxycodone as needed. UTI will continue IV ceftriaxone urine and blood culture showed no growth hypertension BP trending up will resume lisinopril diabetes mellitus blood sugars are stable continue insulin sliding scale and diabetic diet in regard to peripheral vascular disease will continue Lipitor
[2020-07-03] MEDS: cefTRIAXone sodium 1 GM in 0.9 % Sodium Chloride 50 ML IV (16:23)
[2020-07-03 16:42] LABS: Glucose, Whole Blood 130 mg/dL (60-115)
[2020-07-03 20:19] LABS: Hematocrit 25.6 % (42-52); Hemoglobin 8.9 g/dl (14.0-18.0); Mean Corpuscular HGB Conc 34.8 g/dl (31.0-36.0); Mean Corpuscular Hemoglobin 31.2 pg (27.0-33.0); Mean Corpuscular Volume 89.8 fL (80-98); Mean Platelet Volume 9.4 fL (9.4-12.4); Platelet Count 166 X10*3/uL (160-400); Red Blood Count 2.85 X10*6/uL (4.60-5.80); Red Cell Distribution Width 13.3 % (11.0-16.0); White Blood Count 12.8 X10*3/uL (4.8-10.8)
[2020-07-03 21:16] LABS: Glucose, Whole Blood 156 mg/dL (60-115)
[2020-07-03] MEDS: Atorvastatin Calcium 20 MG TABLET PO (21:39)
[2020-07-04] VITALS (8 sets, daily range): BP systolic 108–130; BP diastolic 50–68; PULSE 63–82; RESP 16–20; TEMP 36.4–37.2; O2SAT 93–98
[2020-07-04] MEDS: 0.9 % Sodium Chloride Flush 3 ML SYRINGE 2 ML IVFLUSH ×4 (00:06→22:08)
[2020-07-04] MEDS: 0.9 % Sodium Chloride 1,000 ML 100 ML IVCONT ×3 (02:50→23:31)
[2020-07-04 07:06] LABS: Hematocrit 26.2 % (42-52); Hemoglobin 8.7 g/dl (14.0-18.0); Mean Corpuscular HGB Conc 33.2 g/dl (31.0-36.0); Mean Corpuscular Hemoglobin 31.8 pg (27.0-33.0); Mean Corpuscular Volume 95.6 fL (80-98); Mean Platelet Volume 10.5 fL (9.4-12.4); Platelet Count 148 X10*3/uL (160-400); Red Blood Count 2.74 X10*6/uL (4.60-5.80); Red Cell Distribution Width 13.9 % (11.0-16.0); White Blood Count 9.5 X10*3/uL (4.8-10.8)
[2020-07-04 08:13] LABS: Glucose, Whole Blood 142 mg/dL (60-115)
[2020-07-04] MEDS: lisinopriL 10 MG TABLET PO (10:16)
[2020-07-04 11:40] LABS: Glucose, Whole Blood 184 mg/dL (60-115)
[2020-07-04] MEDS: oxyCODONE HCl Immed Release 5 MG TABLET PO ×2 (12:22→20:06)
[2020-07-04] MEDS: Insulin Lispro 100 UNIT/ML 3 ML VIAL SUBCUT (13:07)
--- NOTE | 2020-07-04 14:05 | P.PNIM_ITS ---
Subjective Subjective Interval History: Patient presented due to hematuria of several days duration associated with dysuria and urinary frequency and lower abdominal discomfort. persistent lower abdominal cramping pain, still passing clots, hematocrit improved after 2 units of packed RBC review of systems Constitutional no fever chills, CVS no chest pain, no palpitation. Gastrointestinal no nausea no vomiting no diarrhea Physical Exam Vital Signs and I&O and Narrative: Vital Signs and I&O: Vital Signs Temp 97.7 F 07/04/20 11:33 Pulse 68 07/04/20 11:33 Resp 16 07/04/20 11:33 BP 108/57 L 07/04/20 11:33 Pulse Ox 97 07/04/20 11:33 Intake & Output 07/03/20 07/04/20 07/04/20 18:59 06:59 18:59 Intake Total -2523.333 / -2623. 333 -100 / -2623.333 1000 / 1000 Output Total 5350 / 6450 1100 / 6450 Balance -7873.333 / -9073. 333 -1200 / -9073.333 1000 / 1000 Urine Output (Aver age ml/kg/hr) 6.22 1.28 1.28 Intake: Intake, Oral Yasmin unt 240 / 240 Intake (Blood Pr oduct) Amount 700 / 700 Red Blood Cell s (E0382) Unit 350 / 350 [id number] Red Blood Cell s (E0382) Unit 350 / 350 [id number] Continuous Bladd er Irrigation -5350 / -6450 -1100 / -6450 Fluid - Amount R etained 3-way Urethral -5350 / -6450 -1100 / -6450 Intake, IV Amoun t 1886.667 / 2886.66 7 1000 / 2886.667 1000 / 1000 cefTRIAXone so dium 1 gm In 0.9 50 / 50 % Sodium Chlor tadeo 50 ml @ 100 mls/hr IV Q24H ESAU Rx#: [id number] 0.9 % Sodium C hloride 1,000 ml 1836.667 / 2836.66 7 1000 / 2836.667 1000 / 1000 @ 100 mls/hr I VCONT .Q10H ESAU Rx#:[id number] Output: Output, Urine Am ount (Catheter) 5350 / 6450 1100 / 6450 3-way Urethral 5350 / 6450 1100 / 6450 Other: Breakfast % Eate n 100% 75% Lunch % Eaten 100% 50% Dinner % Eaten 50% Number of Bowel Movements [address] Tinged Red Tinged Stool Bedpan Stool Color Dark Brown Stool Consistenc y Pasty Continuous Bladd er Irrigation Fluid - Amount I nstilled 3-way Urethral 3,000 9,000 Continuous Bladd er Irrigation Fluid - Amount D rained 3-way Urethral 4,000 9,700 Body Mass Index 22.6 General: no acute distress ,patient oriented x3 Neck supple Resp: normal respiratory effort, clear to auscultation bilaterally Cardio: Rate: regular rate Rhythm GI: Soft to palpation mild lower abdominal discomfort, normal bowel sounds : Other: CBI in place, Palmer catheterization contains punch colored urine with few clots Skin: no rashes or lesions noted Neuro: patient oriented x3 ,normal cognition Extrem: no pedal edema Objective Data Current Medications Generic Name Dose Route Start Last Admin Trade Name Freq PRN Reason Stop Dose Admin Acetaminophen 650 mg 07/02/20 01:32 Acetaminophen 650 Mg Supp.Rect [place] Q6H PRN Pain, Mild (Pain Scale 1-3) Atorvastatin Calcium 20 mg 07/02/20 21:00 07/03/20 21:39 Atorvastatin Calcium 20 Mg Tablet PO 20 mg BEDTIME ESAU Administration Sodium Chloride 1,000 mls @ 100 mls/hr 07/02/20 01:32 07/04/20 13:03 Ns IVCONT 100 mls/hr .Q10H ESAU Administration Ceftriaxone Sodium 1 gm/ 50 mls @ 100 mls/hr 07/02/20 17:00 07/03/20 17:05 Sodium Chloride IV Infused Q24H ESAU Infusion Insulin Human Lispro 0 unit 07/02/20 07:30 07/04/20 13:07 Insulin Lispro 100 Unit/Ml 3 Ml Vial SUBCUT 2 unit QIDACHS ESAU Administration Protocol Lisinopril 10 mg 07/04/20 09:00 07/04/20 10:16 Lisinopril 10 Mg Tablet PO 10 mg DAILY ESAU Administration Protocol Magnesium Hydroxide 30 ml 07/02/20 01:32 Milk Of Magnesia 30 Ml Oral.Susp PO DAILY PRN Constipation Ondansetron HCl 4 mg 07/02/20 01:32 Ondansetron Hcl 4 Mg/2 Ml Vial IVPUSH Q8H PRN Nausea and Vomiting Oxycodone HCl 5 mg 07/02/20 01:32 07/04/20 12:22 Oxycodone Hcl Immed Release 5 Mg Tablet PO 5 mg Q6H PRN Administration Pain, Severe (Pain Scale 7-10) Pharmacy Consult 1 each 07/01/20 20:37 Consult Rx Perform Med Rec MISCELLANE ONCE PRN Consult order Sodium Chloride 2 ml 07/02/20 01:32 07/04/20 08:33 0.9 % Sodium Chloride Flush 3 Ml Syringe IVFLUSH Not Given QSHIFT [facility] Labs CBC & Chem 7: 07/04/20 05:54 07/02/20 05:11 Labs: Laboratory Results - last 24 hr 07/01/20 07/03/20 07/03/20 17:00 16:34 20:09 MCV 89.8 MCH 31.2 MCHC 34.8 RDW 13.3 Plt Count 166 MPV 9.4 Absolute Nucleated RBC 0.000 Nucleated RBC % (auto) 0.0 POC Glucose 130 H Crossmatch See Detail 07/03/20 07/04/20 07/04/20 21:09 05:54 08:02 MCV 95.6 D MCH 31.8 MCHC 33.2 RDW 13.9 Plt Count 148 L MPV 10.5 Absolute Nucleated RBC 0.000 Nucleated RBC % (auto) 0.0 POC Glucose 156 H 142 H Crossmatch 07/04/20 11:32 MCV MCH MCHC RDW Plt Count MPV Absolute Nucleated RBC Nucleated RBC % (auto) POC Glucose 184 H Crossmatch Microbiology Microbiology Results: Microbiology 07/01/20 16:47 Blood - Venous Blood Culture - Preliminary No growth after 48 hours. 07/01/20 16:47 Blood - Venous Blood Culture - Preliminary No growth after 48 hours. 07/01/20 16:43 Urine clean catch - Clean Catch Midstream Urine Culture - Final No growth. Assessment and Plan (1) Acute blood loss anemia: Status: Acute (2) Urinary tract infection: Status: Acute (3) Bladder tumor: Status: Acute (4) Hypertension: Status: Acute (5) Peripheral vascular disease: Status: Acute (6) Diabetes: Status: Acute Assessment and Plan: acute blood loss anemia due to hematuria patient received total 3 units of packed RBC hematocrit improved to 26.2 today, will continue CBI and follow CBC closely will re-consult Dr. Fregoso tomorrow morning patient might need cystoscopy due to persistent hematuria and passing clots, likely patient has recurrence of bladder cancer follow CBC tonight and at a.m. continue belladonna suppository and oxycodone for abdominal cramping. UTI will continue IV ceftriaxone for possible cystoscopy, urine and blood culture showed no growth hypertension BP is stable on low-dose lisinopril 10 mg daily home dose lisinopril 20 mg daily diabetes mellitus blood sugars are stable continue insulin sliding scale and diabetic diet Peripheral vascular disease will continue Lipitor
--- NOTE | 2020-07-04 14:35 | P.PNUR_ITS ---
Subjective Subjective Patient reports: no new complaints Interval history: mild hematuria on CBI no clots Sons present in rooms if persist would do TURBT tomorrow known bladder cancer history Physical Exam Vital Signs and I&O and Narrative: Vital Signs and I&O: Vital Signs Temp 97.7 F 07/04/20 11:33 Pulse 68 07/04/20 11:33 Resp 16 07/04/20 11:33 BP 108/57 L 07/04/20 11:33 Pulse Ox 97 07/04/20 11:33 Intake & Output 07/03/20 07/04/20 07/04/20 18:59 06:59 18:59 Intake Total -2523.333 / -2623. 333 -100 / -2623.333 1000 / 1000 Output Total 5350 / 6450 1100 / 6450 Balance -7873.333 / -9073. 333 -1200 / -9073.333 1000 / 1000 Urine Output (Aver age ml/kg/hr) 6.22 1.28 1.28 Intake: Intake, Oral [place] unt 240 / 240 Intake (Blood Pr oduct) Amount 700 / 700 Red Blood Cell s (E0382) Unit 350 / 350 [id number] Red Blood Cell s (E0382) Unit 350 / 350 [id number] Continuous Bladd er Irrigation -5350 / -6450 -1100 / -6450 Fluid - Amount R etained 3-way Urethral -5350 / -6450 -1100 / -6450 Intake, IV Amoun t 1886.667 / 2886.66 7 1000 / 2886.667 1000 / 1000 cefTRIAXone so dium 1 gm In 0.9 50 / 50 % Sodium Chlor tadeo 50 ml @ 100 mls/hr IV Q24H [facility] Rx#: [id number] 0.9 % Sodium C hloride 1,000 ml 1836.667 / 2836.66 7 1000 / 2836.667 1000 / 1000 @ 100 mls/hr I VCONT .Q10H [facility] Rx#:[id number] Output: Output, Urine Am ount (Catheter) 5350 / 6450 1100 / 6450 3-way Urethral 5350 / 6450 1100 / 6450 Other: Breakfast % Eate n 100% 75% Lunch % Eaten 100% 50% Dinner % Eaten 50% Number of Bowel Movements 1 1 Urine Color [place] Tinged Red Tinged Stool Bedpan Stool Color Dark Brown Stool Consistenc y Pasty Continuous Bladd er Irrigation Fluid - Amount I nstilled 3-way Urethral 3,000 9,000 Continuous Bladd er Irrigation Fluid - Amount D rained 3-way Urethral 4,000 9,700 Body Mass Index 22.6 Const: General: cooperative, healthy appearing, comfortable and no acute distress Nutritional Appearance: average body habitus Orientation/consciousness: oriented to person, oriented to place and oriented to time Eyes: General: appearance normal, both eyes and all related structures Chest: Chest palpation & inspection: normal inspection of the chest Resp: Effort & Inspection: normal respiratory effort Cardio: Rate: regular rate GI: Inspection: Yes normal to inspection Skin: Hair: normal Neuro: General: oriented to person, oriented to place and oriented to time Extrem: General: Yes normal to inspection Progress Note: A&P Assessment and plan (1) Bladder tumor: Problem details: as above possible or tomorrow npo after 2400 Status: Acute Fall Risk Details Current Medications: Current Medications Generic Name Dose Route Start Last Admin Trade Name Freq PRN Reason Stop Dose Admin Acetaminophen 650 mg 07/02/20 01:32 Acetaminophen 650 Mg Supp.Rect [place] Q6H PRN Pain, Mild (Pain Scale 1-3) Atorvastatin Calcium 20 mg 07/02/20 21:00 07/03/20 21:39 Atorvastatin Calcium 20 Mg Tablet PO 20 mg BEDTIME [facility] Administration Belladonna Alkaloids/Opium 1 supp 07/04/20 14:17 Opium/Belladonna 60/16.2 Supp.Rect [place] BID PRN Perineal Discomfort Sodium Chloride 1,000 mls @ 100 mls/hr 07/02/20 01:32 07/04/20 13:03 Ns IVCONT 100 mls/hr .Q10H [facility] Administration Ceftriaxone Sodium 1 gm/ 50 mls @ 100 mls/hr 07/02/20 17:00 07/03/20 17:05 Sodium Chloride IV Infused Q24H [facility] Infusion Insulin Human Lispro 0 unit 07/02/20 07:30 07/04/20 13:07 Insulin Lispro 100 Unit/Ml 3 Ml Vial SUBCUT 2 unit QIDACHS [facility] Administration Protocol Lisinopril 10 mg 07/04/20 09:00 07/04/20 10:16 Lisinopril 10 Mg Tablet PO 10 mg DAILY [facility] Administration Protocol Magnesium Hydroxide 30 ml 07/02/20 01:32 Milk Of Magnesia 30 Ml Oral.Susp PO DAILY PRN Constipation Ondansetron HCl 4 mg 07/02/20 01:32 Ondansetron Hcl 4 Mg/2 Ml Vial IVPUSH Q8H PRN Nausea and Vomiting Oxycodone HCl 5 mg 07/02/20 01:32 07/04/20 12:22 Oxycodone Hcl Immed Release 5 Mg Tablet PO 5 mg Q6H PRN Administration Pain, Severe (Pain Scale 7-10) Pharmacy Consult 1 each 07/01/20 20:37 Consult Rx Perform Med Rec MISCELLANE ONCE PRN Consult order Sodium Chloride 2 ml 07/02/20 01:32 07/04/20 08:33 0.9 % Sodium Chloride Flush 3 Ml Syringe IVFLUSH Not Given QSHIFT [facility] Time Spent With Patient Time: Total time spent is greater than 50% in coordination of care (as documented) at patient's floor/unit and/or counseling patient: Time with patient: 15 - 24 minutes
[2020-07-04] MEDS: cefTRIAXone sodium 1 GM in 0.9 % Sodium Chloride 50 ML IV (16:11)
[2020-07-04 16:43] LABS: Glucose, Whole Blood 213 mg/dL (60-115)
[2020-07-04] MEDS: Atorvastatin Calcium 20 MG TABLET PO (20:06)
[2020-07-04 21:19] LABS: Glucose, Whole Blood 209 mg/dL (60-115)
[2020-07-05] VITALS (16 sets, daily range): BP systolic 101–133; BP diastolic 51–96; PULSE 61–93; RESP 16–20; TEMP 36.3–37.3; O2SAT 93–99
[2020-07-05 06:12] LABS: MANUAL DIFF FLAG NO
[2020-07-05 06:18] LABS: Basophils Absolute Auto 0.1 X10*3/uL (0.0-0.2); Basophils Percent Auto 0.8 % (0-2); Eosinophils Absolute Auto 0.4 X10*3/uL (0.0-0.4); Eosinophils Percent Auto 4.6 % (0-4); Hematocrit 23.3 % (42-52); Hemoglobin 7.7 g/dl (14.0-18.0); Imm Gran Abs Auto 0.03 X10*3/uL (0.00-0.03); Imm Gran Pct Auto 0.4 % (0.0-0.4); Lymphocytes Percent Auto 11.9 % (20-40); Mean Corpuscular Hemoglobin 30.6 pg (27.0-33.0); Mean Corpuscular Volume 92.5 fL (80-98); Mean Platelet Volume 9.5 fL (9.4-12.4); Monocytes Absolute Auto 0.7 X10*3/uL (0.1-1.2); Neutrophils Absolute Auto 5.9 X10*3/uL (2.0-8.3); Neutrophils Percent Auto 73.3 % (45-73); Platelet Count 202 X10*3/uL (160-400); Red Blood Count 2.52 X10*6/uL (4.60-5.80)
[2020-07-05 06:54] LABS: Anion Gap 9 (12-20); Blood Urea Nitrogen 11 mg/dL (9-16); Calcium 7.4 mg/dL (8.4-10.2); Carbon Dioxide 23 mmol/L (22-29); Chloride 107 mmol/L (96-108); Creatinine Clr Calc Pharmacy 81.3; Estimated Glomerular Filt Rate > 60; Glucose Random 205 mg/dL (60-115); Potassium 4.3 mmol/l (3.3-5.1); Sodium 135 mmol/L (135-145)
[2020-07-05 07:59] LABS: Glucose, Whole Blood 192 mg/dL (60-115)
[2020-07-05] MEDS: lisinopriL 10 MG TABLET PO (09:17)
[2020-07-05] MEDS: oxyCODONE HCl Immed Release 5 MG TABLET PO ×2 (09:18→21:37)
--- NOTE | 2020-07-05 11:26 | P.PNUR_ITS ---
Subjective Subjective Patient reports: no new complaints Interval history: hematuria resolving plan for TURBT today Had discussed with sons yesterday no questions Physical Exam Vital Signs and I&O and Narrative: Vital Signs and I&O: Vital Signs Temp 97.9 F 07/05/20 11:24 Pulse 61 07/05/20 11:24 Resp 20 07/05/20 11:24 BP 108/55 L 07/05/20 11:24 Pulse Ox 98 07/05/20 08:00 Intake & Output 07/04/20 07/05/20 07/05/20 18:59 06:59 18:59 Intake Total 1050 / -3850 -4900 / -3850 800 / 800 Output Total 2099 Balance -1050 / -5950 -4900 / -5950 800 / 800 Urine Output (Aver age ml/kg/hr) 2.44 2.44 2.44 Intake: Intake, Oral [place] unt 200 / 200 Intake (Blood Pr oduct) Amount 0 / 0 Red Blood Cell s (E0382) Unit 0 / 0 [id number] Continuous Bladd er Irrigation -6100 / -6100 -200 / -200 Fluid - Amount R etained Intake, IV Amoun t 1050 / 2050 1000 / 2050 1000 / 1000 cefTRIAXone so dium 1 gm In 0.9 50 / 50 % Sodium Chlor tadeo 50 ml @ 100 mls/hr IV Q24H [facility] Rx#: [id number] 0.9 % Sodium C hloride 1,000 ml 1000 / 2000 1000 / 2000 1000 / 1000 @ 100 mls/hr I VCONT .Q10H [facility] Rx#:[id number] Output: Output, Urine Am ount (Catheter) 2099 3-way Urethral 2099 Other: NPO Yes Breakfast % Eate n 75% Lunch % Eaten 50% Dinner % Eaten 100% Number of Bowel Movements 1 Urine Color [place] Tinged Red Tinged Red Tinged Stool Bedpan Stool Color Dark Brown Stool Consistenc y Pasty Continuous Bladd er Irrigation 3,000 3,000 Fluid - Amount I nstilled Continuous Bladd er Irrigation 3,600 3,200 Fluid - Amount D rained Body Mass Index 22.6 Const: General: cooperative, healthy appearing, comfortable and no acute distress Nutritional Appearance: average body habitus Orientation/c onsciousness: oriented to person, oriented to place and oriented to time Eyes: General: appearance normal, both eyes and all related structures Chest: Chest palpation & inspection: normal inspection of the chest Resp: Effort & Inspection: normal respiratory effort Cardio: Rate: regular rate GI: Inspection: Yes normal to inspection Skin: Hair: normal Neuro: General: oriented to person, oriented to place and oriented to time Extrem: General: Yes normal to inspection Progress Note: A&P Assessment and plan (1) Bladder tumor: Status: Acute Assessment and Plan: Bladder tumor OR for TURBT from hematuria Fall Risk Details Current Medications: Current Medications Generic Name Dose Route Start Last Admin Trade Name Freq PRN Reason Stop Dose Admin Acetaminophen 650 mg 07/02/20 01:32 Acetaminophen 650 Mg Supp.Rect [place] Q6H PRN Pain, Mild (Pain Scale 1-3) Atorvastatin Calcium 20 mg 07/02/20 21:00 07/04/20 20:06 Atorvastatin Calcium 20 Mg Tablet PO 20 mg BEDTIME [facility] Administration Belladonna Alkaloids/Opium 1 supp 07/04/20 14:17 07/04/20 16:13 Opium/Belladonna 60/16.2 Supp.Rect [place] 1 supp BID PRN Administration Perineal Discomfort Ceftriaxone Sodium 1 gm/ 50 mls @ 100 mls/hr 07/02/20 17:00 07/04/20 17:23 Sodium Chloride IV Infused Q24H [facility] Infusion Insulin Human Lispro 0 unit 07/02/20 07:30 07/05/20 08:10 Insulin Lispro 100 Unit/Ml 3 Ml Vial SUBCUT Not Given QIDACHS [facility] Protocol Lisinopril 10 mg 07/04/20 09:00 07/05/20 09:17 Lisinopril 10 Mg Tablet PO 10 mg DAILY [facility] Administration Protocol Magnesium Hydroxide 30 ml 07/02/20 01:32 Milk Of Magnesia 30 Ml Oral.Susp PO DAILY PRN Constipation Ondansetron HCl 4 mg 07/02/20 01:32 Ondansetron Hcl 4 Mg/2 Ml Vial IVPUSH Q8H PRN Nausea and Vomiting Oxycodone HCl 5 mg 07/02/20 01:32 07/05/20 09:18 Oxycodone Hcl Immed Release 5 Mg Tablet PO 5 mg Q6H PRN Administration Pain, Severe (Pain Scale 7-10) Pharmacy Consult 1 each 07/01/20 20:37 Consult Rx Perform Med Rec MISCELLANE ONCE PRN Consult order Sodium Chloride 2 ml 07/02/20 01:32 07/04/20 22:08 0.9 % Sodium Chloride Flush 3 Ml Syringe IVFLUSH 2 ml QSHIFT [facility] Administration Time Spent With Patient Time: Total time spent is greater than 50% in coordination of care (as documented) at patient's floor/unit and/or counseling patient: Time with patient: less than 15 minutes
[2020-07-05 11:44] LABS: Glucose, Whole Blood 158 mg/dL (60-115)
--- NOTE | 2020-07-05 11:56 | MHC.CM.PN ---
Patient will be going to the OR today for a cystoscopy. Discharge plan is home no services. CM will continue to follow for discharge needs.
--- NOTE | 2020-07-05 13:37 | P.PNIM_ITS ---
Subjective Subjective Interval History: Patient presented due to hematuria of several days duration associated with dysuria and urinary frequency and lower abdominal discomfort. patient denies abdominal pain, no abdominal cramps , urine has cleared, no other acute issues overnight, hematocrit dropped since yesterday review of systems Constitutional no fever chills, CVS no chest pain, no palpitation. Gastrointestinal no nausea no vomiting no diarrhea Physical Exam Vital Signs and I&O and Narrative: Vital Signs and I&O: Vital Signs Temp 99.1 F 07/05/20 13:18 Pulse 90 07/05/20 13:18 Resp 20 07/05/20 13:18 BP 132/61 07/05/20 13:18 Pulse Ox 95 07/05/20 11:25 Intake & Output 07/04/20 07/05/20 07/05/20 18:59 06:59 18:59 Intake Total 1050 / -3850 -4900 / -3850 1250 / 1250 Output Total 2099 Balance -1050 / -5950 -4900 / -5950 1250 / 1250 Urine Output (Aver age ml/kg/hr) 2.44 2.44 2.44 Intake: Intake, Oral [place] unt 200 / 200 Intake (Blood Pr oduct) Amount 350 / 350 Red Blood Cell s (E0382) Unit 350 / 350 [id number] Intake, Other Am ount 100 / 100 Red Blood Cell s (E0382) Unit 100 / 100 [id number] Continuous Bladd er Irrigation -6100 / -6100 -200 / -200 Fluid - Amount R etained Intake, IV Amoun t 1049 / 2049 1000 / 1000 cefTRIAXone so dium 1 gm In 0.9 50 / 50 % Sodium Chlor tadeo 50 ml @ 100 mls/hr IV Q24H [facility] Rx#: [id number] 0.9 % Sodium C hloride 1,000 ml 999 / 1999 1000 / 2000 1000 / 1000 @ 100 mls/hr I VCONT .Q10H [facility] Rx#:[id number] Output: Output, Urine Am ount (Catheter) 2099 3-way Urethral 2099 Other: NPO Yes Breakfast % Eate n 75% Lunch % Eaten 50% Dinner % Eaten 100% Number of Bowel Movements 1 Urine Color [place] Tinged Red Tinged Red Tinged Stool Bedpan Stool Color Dark Brown Stool Consistenc y Pasty Continuous Bladd er Irrigation 3,000 3,000 Fluid - Amount I nstilled Continuous Bladd er Irrigation 3,600 3,200 Fluid - Amount D rained Body Mass Index 22.6 General: no acute distress ,patient oriented x3 Neck supple Resp: normal respiratory effort, clear to auscultation bilaterally Cardio: Rate: regular rate Rhythm GI: Soft to palpation, mild lower abdominal discomfort, normal bowel sounds : Other: CBI in place, Palmer catheterization contains punch colored urine with few clots Skin: no rashes or lesions noted, pallor Neuro: patient oriented x3 ,normal cognition Extrem: no pedal edema Objective Data Current Medications Generic Name Dose Route Start Last Admin Trade Name Freq PRN Reason Stop Dose Admin Acetaminophen 650 mg 07/02/20 01:32 Acetaminophen 650 Mg Supp.Rect [place] Q6H PRN Pain, Mild (Pain Scale 1-3) Atorvastatin Calcium 20 mg 07/02/20 21:00 07/04/20 20:06 Atorvastatin Calcium 20 Mg Tablet PO 20 mg BEDTIME [facility] Administration Belladonna Alkaloids/Opium 1 supp 07/04/20 14:17 07/04/20 16:13 Opium/Belladonna 60/16.2 Supp.Rect [place] 1 supp BID PRN Administration Perineal Discomfort Ceftriaxone Sodium 1 gm/ 50 mls @ 100 mls/hr 07/02/20 17:00 07/04/20 17:23 Sodium Chloride IV Infused Q24H [facility] Infusion Insulin Human Lispro 0 unit 07/02/20 07:30 07/05/20 11:58 Insulin Lispro 100 Unit/Ml 3 Ml Vial SUBCUT Not Given QIDACHS [facility] Protocol Lisinopril 10 mg 07/04/20 09:00 07/05/20 09:17 Lisinopril 10 Mg Tablet PO 10 mg DAILY [facility] Administration Protocol Magnesium Hydroxide 30 ml 07/02/20 01:32 Milk Of Magnesia 30 Ml Oral.Susp PO DAILY PRN Constipation Ondansetron HCl 4 mg 07/02/20 01:32 Ondansetron Hcl 4 Mg/2 Ml Vial IVPUSH Q8H PRN Nausea and Vomiting Oxycodone HCl 5 mg 07/02/20 01:32 07/05/20 09:18 Oxycodone Hcl Immed Release 5 Mg Tablet PO 5 mg Q6H PRN Administration Pain, Severe (Pain Scale 7-10) Pharmacy Consult 1 each 07/01/20 20:37 Consult Rx Perform Med Rec MISCELLANE ONCE PRN Consult order Sodium Chloride 2 ml 07/02/20 01:32 07/04/20 22:08 0.9 % Sodium Chloride Flush 3 Ml Syringe IVFLUSH 2 ml QSHIFT [facility] Administration Labs CBC & Chem 7: 07/05/20 05:37 07/05/20 05:37 Labs: Laboratory Results - last 24 hr 07/03/20 07/04/20 07/04/20 05:50 16:39 21:11 MCV MCH MCHC RDW Plt Count MPV Immature Gran % (Auto) Neut % (Auto) Lymph % (Auto) [place] % (Auto) Eos % (Auto) Baso % (Auto) Neut # (Auto) Lymph # (Auto) [place] # (Auto) Eos # (Auto) Baso # (Auto) Abs Immat Gran (auto) Absolute Nucleated RBC Nucleated RBC % (auto) Smear Path Review SEE NOTE Anion Gap Estim Creat Clear Calc Estimated GFR POC Glucose 213 H 209 H Random Glucose Calcium Blood Type Antibody Screen Crossmatch 07/05/20 07/05/20 07/05/20 05:37 05:37 07:48 MCV 92.5 MCH 30.6 MCHC 33.0 RDW 14.0 Plt Count 202 D MPV 9.5 Immature Gran % (Auto) 0.4 Neut % (Auto) 73.3 H Lymph % (Auto) 11.9 L [place] % (Auto) 9.0 Eos % (Auto) 4.6 H Baso % (Auto) 0.8 Neut # (Auto) 5.9 Lymph # (Auto) 1.0 L [place] # (Auto) 0.7 Eos # (Auto) 0.4 Baso # (Auto) 0.1 Abs Immat Gran (auto) 0.03 Absolute Nucleated RBC 0.000 Nucleated RBC % (auto) 0.0 Smear Path Review Anion Gap 9 L Estim Creat Clear Calc 81.3 Estimated GFR > 60 POC Glucose 192 H Random Glucose 205 H Calcium 7.4 L Blood Type Antibody Screen Crossmatch 07/05/20 07/05/20 09:42 11:23 MCV MCH MCHC RDW Plt Count MPV Immature Gran % (Auto) Neut % (Auto) Lymph % (Auto) [place] % (Auto) Eos % (Auto) Baso % (Auto) Neut # (Auto) Lymph # (Auto) [place] # (Auto) Eos # (Auto) Baso # (Auto) Abs Immat Gran (auto) Absolute Nucleated RBC Nucleated RBC % (auto) Smear Path Review Anion Gap Estim Creat Clear Calc Estimated GFR POC Glucose 158 H Random Glucose Calcium Blood Type B Positive Antibody Screen NEGATIVE Crossmatch See Detail Microbiology Microbiology Results: Microbiology 07/01/20 16:47 Blood - Venous Blood Culture - Preliminary No growth after 48 hours. 07/01/20 16:47 Blood - Venous Blood Culture - Preliminary No growth after 48 hours. 07/01/20 16:43 Urine clean catch - Clean Catch Midstream Urine Culture - Final No growth. Assessment and Plan (1) Acute blood loss anemia: Status: Acute (2) Urinary tract infection: Status: Acute (3) Bladder tumor: Status: Acute (4) Hypertension: Status: Acute (5) Peripheral vascular disease: Status: Acute (6) Diabetes: Status: Acute Assessment and Plan: acute blood loss anemia due to hematuria patient received total 3 units of packed RBC hematocrit dropped again this morning due to persistent hematuria will give 1 more unit of packed RBC will continue CBI and follow CBC closely, patient is scheduled for cystoscopy and treatment for bladder mass today by Dr. Fregoso, patient NPO , patient abdominal pain has significantly improved and urine has cleared significantly. follow CBC at a.m. continue belladonna suppository and oxycodone for abdominal cramping. UTI will continue IV ceftriaxone for possible cystoscopy, urine and blood culture showed no growth hypertension BP is stable on low-dose lisinopril 10 mg daily home dose lisinopril 20 mg daily diabetes mellitus blood sugars are stable continue insulin sliding scale and diabetic diet. Peripheral vascular disease will continue Lipitor
--- NOTE | 2020-07-05 13:42 | HO.PM.IMPN ---
Subjective Subjective Interval History: Patient presented due to hematuria of several days duration associated with dysuria and urinary frequency and lower abdominal discomfort. patient denies abdominal pain, no abdominal cramps , urine has cleared, no other acute issues overnight, hematocrit dropped since yesterday review of systems Constitutional no fever chills, CVS no chest pain, no palpitation. Gastrointestinal no nausea no vomiting no diarrhea Physical Exam Vital Signs and I&O and Narrative: Vital Signs and I&O: Vital Signs Temp 99.1 F 07/05/20 13:18 Pulse 90 07/05/20 13:18 Resp 20 07/05/20 13:18 BP 132/61 07/05/20 13:18 Pulse Ox 95 07/05/20 11:25 Intake & Output 07/04/20 07/05/20 07/05/20 18:59 06:59 18:59 Intake Total 1050 / -3850 -4900 / -3850 1250 / 1250 Output Total 2099 Balance -1050 / -5950 -4900 / -5950 1250 / 1250 Urine Output (Aver age ml/kg/hr) 2.44 2.44 2.44 Intake: Intake, Oral [place] unt 200 / 200 Intake (Blood Pr oduct) Amount 350 / 350 Red Blood Cell s (E0382) Unit 350 / 350 [id number] Intake, Other Am ount 100 / 100 Red Blood Cell s (E0382) Unit 100 / 100 [id number] Continuous Bladd er Irrigation -6100 / -6100 -200 / -200 Fluid - Amount R etained Intake, IV Amoun t 1049 / 2049 1000 / 1000 cefTRIAXone so dium 1 gm In 0.9 50 / 50 % Sodium Chlor tadeo 50 ml @ 100 mls/hr IV Q24H [facility] Rx#: [id number] 0.9 % Sodium C hloride 1,000 ml 999 / 1999 1000 / 2000 1000 / 1000 @ 100 mls/hr I VCONT .Q10H [facility] Rx#:[id number] Output: Output, Urine Am ount (Catheter) 2099 3-way Urethral 2099 Other: NPO Yes Breakfast % Eate n 75% Lunch % Eaten 50% Dinner % Eaten 100% Number of Bowel Movements 1 Urine Color [place] Tinged Red Tinged Red Tinged Stool Bedpan Stool Color Dark Brown Stool Consistenc y Pasty Continuous Bladd er Irrigation 3,000 3,000 Fluid - Amount I nstilled Continuous Bladd er Irrigation 3,600 3,200 Fluid - Amount D rained Body Mass Index 22.6 General: no acute distress ,patient oriented x3 Neck supple Resp: normal respiratory effort, clear to auscultation bilaterally Cardio: Rate: regular rate Rhythm GI: Soft to palpation, mild lower abdominal discomfort, normal bowel sounds : Other: CBI in place, Palmer catheterization contains punch colored urine with few clots Skin: no rashes or lesions noted, pallor Neuro: patient oriented x3 ,normal cognition Extrem: no pedal edema Objective Data Current Medications Generic Name Dose Route Start Last Admin Trade Name Freq PRN Reason Stop Dose Admin Acetaminophen 650 mg 07/02/20 01:32 Acetaminophen 650 Mg Supp.Rect [place] Q6H PRN Pain, Mild (Pain Scale 1-3) Atorvastatin Calcium 20 mg 07/02/20 21:00 07/04/20 20:06 Atorvastatin Calcium 20 Mg Tablet PO 20 mg BEDTIME [facility] Administration Belladonna Alkaloids/Opium 1 supp 07/04/20 14:17 07/04/20 16:13 Opium/Belladonna 60/16.2 Supp.Rect [place] 1 supp BID PRN Administration Perineal Discomfort Ceftriaxone Sodium 1 gm/ 50 mls @ 100 mls/hr 07/02/20 17:00 07/04/20 17:23 Sodium Chloride IV Infused Q24H [facility] Infusion Insulin Human Lispro 0 unit 07/02/20 07:30 07/05/20 11:58 Insulin Lispro 100 Unit/Ml 3 Ml Vial SUBCUT Not Given QIDACHS [facility] Protocol Lisinopril 10 mg 07/04/20 09:00 07/05/20 09:17 Lisinopril 10 Mg Tablet PO 10 mg DAILY [facility] Administration Protocol Magnesium Hydroxide 30 ml 07/02/20 01:32 Milk Of Magnesia 30 Ml Oral.Susp PO DAILY PRN Constipation Ondansetron HCl 4 mg 07/02/20 01:32 Ondansetron Hcl 4 Mg/2 Ml Vial IVPUSH Q8H PRN Nausea and Vomiting Oxycodone HCl 5 mg 07/02/20 01:32 07/05/20 09:18 Oxycodone Hcl Immed Release 5 Mg Tablet PO 5 mg Q6H PRN Administration Pain, Severe (Pain Scale 7-10) Pharmacy Consult 1 each 07/01/20 20:37 Consult Rx Perform Med Rec MISCELLANE ONCE PRN Consult order Sodium Chloride 2 ml 07/02/20 01:32 07/04/20 22:08 0.9 % Sodium Chloride Flush 3 Ml Syringe IVFLUSH 2 ml QSHIFT [facility] Administration Labs CBC & Chem 7: 07/05/20 05:37 07/05/20 05:37 Labs: Laboratory Results - last 24 hr 07/03/20 07/04/20 07/04/20 05:50 16:39 21:11 MCV MCH MCHC RDW Plt Count MPV Immature Gran % (Auto) Neut % (Auto) Lymph % (Auto) [place] % (Auto) Eos % (Auto) Baso % (Auto) Neut # (Auto) Lymph # (Auto) [place] # (Auto) Eos # (Auto) Baso # (Auto) Abs Immat Gran (auto) Absolute Nucleated RBC Nucleated RBC % (auto) Smear Path Review SEE NOTE Anion Gap Estim Creat Clear Calc Estimated GFR POC Glucose 213 H 209 H Random Glucose Calcium Blood Type Antibody Screen Crossmatch 07/05/20 07/05/20 07/05/20 05:37 05:37 07:48 MCV 92.5 MCH 30.6 MCHC 33.0 RDW 14.0 Plt Count 202 D MPV 9.5 Immature Gran % (Auto) 0.4 Neut % (Auto) 73.3 H Lymph % (Auto) 11.9 L [place] % (Auto) 9.0 Eos % (Auto) 4.6 H Baso % (Auto) 0.8 Neut # (Auto) 5.9 Lymph # (Auto) 1.0 L [place] # (Auto) 0.7 Eos # (Auto) 0.4 Baso # (Auto) 0.1 Abs Immat Gran (auto) 0.03 Absolute Nucleated RBC 0.000 Nucleated RBC % (auto) 0.0 Smear Path Review Anion Gap 9 L Estim Creat Clear Calc 81.3 Estimated GFR > 60 POC Glucose 192 H Random Glucose 205 H Calcium 7.4 L Blood Type Antibody Screen Crossmatch 07/05/20 07/05/20 09:42 11:23 MCV MCH MCHC RDW Plt Count MPV Immature Gran % (Auto) Neut % (Auto) Lymph % (Auto) [place] % (Auto) Eos % (Auto) Baso % (Auto) Neut # (Auto) Lymph # (Auto) [place] # (Auto) Eos # (Auto) Baso # (Auto) Abs Immat Gran (auto) Absolute Nucleated RBC Nucleated RBC % (auto) Smear Path Review Anion Gap Estim Creat Clear Calc Estimated GFR POC Glucose 158 H Random Glucose Calcium Blood Type B Positive Antibody Screen NEGATIVE Crossmatch See Detail Microbiology Microbiology Results: Microbiology 07/01/20 16:47 Blood - Venous Blood Culture - Preliminary No growth after 48 hours. 07/01/20 16:47 Blood - Venous Blood Culture - Preliminary No growth after 48 hours. 07/01/20 16:43 Urine clean catch - Clean Catch Midstream Urine Culture - Final No growth. Assessment and Plan (1) Acute blood loss anemia: Status: Acute (2) Urinary tract infection: Status: Acute (3) Bladder tumor: Status: Acute (4) Hypertension: Status: Acute (5) Peripheral vascular disease: Status: Acute (6) Diabetes: Status: Acute Assessment and Plan: acute blood loss anemia due to hematuria patient received total 3 units of packed RBC hematocrit dropped again this morning due to persistent hematuria will give 1 more unit of packed RBC will continue CBI and follow CBC closely, patient is scheduled for cystoscopy and treatment for bladder mass today by Dr. Fregoso, patient NPO , patient abdominal pain has significantly improved and urine has cleared significantly. follow CBC at a.m. continue belladonna suppository and oxycodone for abdominal cramping. UTI will continue IV ceftriaxone for possible cystoscopy, urine and blood culture showed no growth hypertension BP is stable on low-dose lisinopril 10 mg daily home dose lisinopril 20 mg daily diabetes mellitus blood sugars are stable continue insulin sliding scale and diabetic diet. Peripheral vascular disease will continue Lipitor
--- NOTE | 2020-07-05 14:40 | P.CONAN_ITS ---
Documented by User: Rock Bee MD 07/05/20 14:41 HPI - Anesthesia Eval Consult details Narrative: 75 M p/f TURBT PMFSH Past Medical History Medical History Bladder cancer Social History Social History Household Members: Spouse Housing: House Do you presently have visiting nurse or other home services: No Alcohol intake: unknown Smoking Status: Former smoker Smoked in Last 30 Days: Yes Smoking Quit Date: quit 2 yrs ago Patient Interested in Nicotine Replacement: No Patient Given Instructions on How to Stop Smoking: No Second Hand Smoke Exposure: No Use of substances other than those prescribed or required for medical reasons: No Currently Displaying Signs/Symptoms of Drug Intoxication Withdrawal: No Any prior treatment program specific to substance use: No Have you been hit, kicked, punched, or otherwise hurt by someone within the past year? If so, by whom?: No Do you feel safe in your current relationship?: Yes Is there a partner from a previous relationship who is making you feel unsafe now?: No Are you made to feel afraid or neglected: No Advance Directives: No Advance Directives Information Provided: No Advance Directives on File: No Do you have thoughts of harming others: None Do you have a plan to hurt others: No Plan Recently lost weight without trying: No service: Yes Current occupational status: retired [employer] Allergies Allergy/AdvReac Type Severity Reaction Status Date / Time No Known Allergies Allergy Verified 07/01/20 22:12 [No Known Allergies*] Home Medications Medication Instructions Recorded Confirmed Type atorvastatin 20 mg PO BEDTIME 07/01/20 07/01/20 History ciprofloxacin HCl [Cipro] 500 mg PO BID 07/01/20 07/01/20 History glipizide 5 mg PO DAILY 07/01/20 07/01/20 History lisinopril 20 mg PO DAILY 07/01/20 07/01/20 History Exam Exam Date and Time: July 05, 2020 1440 Height,Weight and Vital Signs: Height 5 ft 10 in Weight 71.668 kg Last Vital Signs Temp 99.1 F 07/05/20 13:18 Pulse 90 07/05/20 13:18 Resp 20 07/05/20 13:18 BP 132/61 07/05/20 13:18 Pulse Ox 95 07/05/20 11:25 Pertinent Lab Results Pertinent Lab Results: Laboratory Tests 07/01/20 07/01/20 07/01/20 15:00 15:32 15:32 WBC 8.8 RBC 2.58 L Hgb 7.9 L Hct 23.6 L MCV 91.5 MCH 30.6 MCHC 33.5 RDW 12.8 Plt Count 214 MPV 9.1 L Immature Gran % (Auto) 0.5 H Neut % (Auto) 86.1 H Lymph % (Auto) 7.6 L [place] % (Auto) 5.0 Eos % (Auto) 0.3 Baso % (Auto) 0.5 Neut # (Auto) 7.6 Lymph # (Auto) 0.7 L [place] # (Auto) 0.4 Eos # (Auto) 0.0 Baso # (Auto) 0.0 Abs Immat Gran (auto) 0.04 H Absolute Nucleated RBC 0.000 Nucleated RBC % (auto) 0.0 Smear Tech's Comments VERIFIED Smear Path Review PT INR APTT Sodium 135 Potassium 4.7 Chloride 103 Carbon Dioxide 23 Anion Gap 14 BUN 23 H Creatinine 1.26 Estim Creat Clear Calc TNP Estimated GFR 56 POC Glucose Random Glucose 210 H Lactic Acid Calcium 8.8 Urine Color RED Urine Appearance TURBID Urine pH 6.5 Ur Specific [place] 1.020 Urine Protein 3+ H Urine Glucose (UA) 100 H Urine Ketones 5 Urine Blood 3+ H Urine Nitrite POS H Ur Leukocyte Esterase 2+ H Urine RBC TNTC H Urine WBC 5-9 H Ur Squamous Epith Cells NONE Urine Bacteria TRACE Blood Type Antibody Screen Crossmatch 07/01/20 07/01/20 07/01/20 16:47 16:47 17:00 WBC RBC Hgb Hct MCV MCH MCHC RDW Plt Count MPV Immature Gran % (Auto) Neut % (Auto) Lymph % (Auto) [place] % (Auto) Eos % (Auto) Baso % (Auto) Neut # (Auto) Lymph # (Auto) [place] # (Auto) Eos # (Auto) Baso # (Auto) Abs Immat Gran (auto) Absolute Nucleated RBC Nucleated RBC % (auto) Smear Tech's Comments Smear Path Review PT 12.9 INR 1.1 APTT 28.7 Sodium Potassium Chloride Carbon Dioxide Anion Gap BUN Creatinine Estim Creat Clear Calc Estimated GFR POC Glucose Random Glucose Lactic Acid 1.1 Calcium Urine Color Urine Appearance Urine pH Ur Specific [place] Urine Protein Urine Glucose (UA) Urine Ketones Urine Blood Urine Nitrite Ur Leukocyte Esterase Urine RBC Urine WBC Ur Squamous Epith Cells Urine Bacteria Blood Type B Positive Antibody Screen NEGATIVE Crossmatch See Detail 07/02/20 07/02/20 07/02/20 05:11 05:11 07:28 WBC 15.8 H RBC 2.76 L Hgb 8.6 L Hct 24.7 L MCV 89.5 MCH 31.2 MCHC 34.8 RDW 13.5 Plt Count 194 MPV 9.3 L Immature Gran % (Auto) 0.8 H Neut % (Auto) 86.7 H Lymph % (Auto) 5.2 L [place] % (Auto) 7.0 Eos % (Auto) 0.0 Baso % (Auto) 0.3 Neut # (Auto) 13.7 H Lymph # (Auto) 0.8 L [place] # (Auto) 1.1 Eos # (Auto) 0.0 Baso # (Auto) 0.0 Abs Immat Gran (auto) 0.13 H Absolute Nucleated RBC 0.000 Nucleated RBC % (auto) 0.0 Smear Tech's Comments Smear Path Review PT INR APTT Sodium 134 L Potassium 3.9 Chloride 104 Carbon Dioxide 22 Anion Gap 12 BUN 16 Creatinine 0.96 Estim Creat Clear Calc 69.4 Estimated GFR > 60 POC Glucose 157 H Random Glucose 190 H Lactic Acid Calcium 7.9 L Urine Color Urine Appearance Urine pH Ur Specific [place] Urine Protein Urine Glucose (UA) Urine Ketones Urine Blood Urine Nitrite Ur Leukocyte Esterase Urine RBC Urine WBC Ur Squamous Epith Cells Urine Bacteria Blood Type Antibody Screen Crossmatch 07/02/20 07/02/20 07/02/20 11:11 16:59 21:07 WBC RBC Hgb Hct MCV MCH MCHC RDW Plt Count MPV Immature Gran % (Auto) Neut % (Auto) Lymph % (Auto) [place] % (Auto) Eos % (Auto) Baso % (Auto) Neut # (Auto) Lymph # (Auto) [place] # (Auto) Eos # (Auto) Baso # (Auto) Abs Immat Gran (auto) Absolute Nucleated RBC Nucleated RBC % (auto) Smear Tech's Comments Smear Path Review PT INR APTT Sodium Potassium Chloride Carbon Dioxide Anion Gap BUN Creatinine Estim Creat Clear Calc Estimated GFR POC Glucose 116 H 120 H 120 H Random Glucose Lactic Acid Calcium Urine Color Urine Appearance Urine pH Ur Specific [place] Urine Protein Urine Glucose (UA) Urine Ketones Urine Blood Urine Nitrite Ur Leukocyte Esterase Urine RBC Urine WBC Ur Squamous Epith Cells Urine Bacteria Blood Type Antibody Screen Crossmatch 07/03/20 07/03/20 07/03/20 05:50 07:57 11:18 WBC 12.0 H RBC 2.27 L Hgb 7.1 L Hct 21.0 L* MCV 92.5 MCH 31.3 MCHC 33.8 RDW 14.0 Plt Count 176 MPV 9.7 Immature Gran % (Auto) 0.4 Neut % (Auto) 84.4 H Lymph % (Auto) 7.5 L [place] % (Auto) 6.9 Eos % (Auto) 0.4 Baso % (Auto) 0.4 Neut # (Auto) 10.1 H Lymph # (Auto) 0.9 L [place] # (Auto) 0.8 Eos # (Auto) 0.1 Baso # (Auto) 0.1 Abs Immat Gran (auto) 0.05 H Absolute Nucleated RBC 0.000 Nucleated RBC % (auto) 0.0 Smear Tech's Comments Smear Path Review SEE NOTE PT INR APTT Sodium Potassium Chloride Carbon Dioxide Anion Gap BUN Creatinine Estim Creat Clear Calc Estimated GFR POC Glucose 131 H 208 H Random Glucose Lactic Acid Calcium Urine Color Urine Appearance Urine pH Ur Specific [place] Urine Protein Urine Glucose (UA) Urine Ketones Urine Blood Urine Nitrite Ur Leukocyte Esterase Urine RBC Urine WBC Ur Squamous Epith Cells Urine Bacteria Blood Type Antibody Screen Crossmatch 07/03/20 07/03/20 07/03/20 16:34 20:09 21:09 WBC 12.8 H RBC 2.85 L D Hgb 8.9 L D Hct 25.6 L D MCV 89.8 MCH 31.2 MCHC 34.8 RDW 13.3 Plt Count 166 MPV 9.4 Immature Gran % (Auto) Neut % (Auto) Lymph % (Auto) [place] % (Auto) Eos % (Auto) Baso % (Auto) Neut # (Auto) Lymph # (Auto) [place] # (Auto) Eos # (Auto) Baso # (Auto) Abs Immat Gran (auto) Absolute Nucleated RBC 0.000 Nucleated RBC % (auto) 0.0 Smear Tech's Comments Smear Path Review PT INR APTT Sodium Potassium Chloride Carbon Dioxide Anion Gap BUN Creatinine Estim Creat Clear Calc Estimated GFR POC Glucose 130 H 156 H Random Glucose Lactic Acid Calcium Urine Color Urine Appearance Urine pH Ur Specific [place] Urine Protein Urine Glucose (UA) Urine Ketones Urine Blood Urine Nitrite Ur Leukocyte Esterase Urine RBC Urine WBC Ur Squamous Epith Cells Urine Bacteria Blood Type Antibody Screen Crossmatch 07/04/20 07/04/20 07/04/20 05:54 08:02 11:32 WBC 9.5 RBC 2.74 L Hgb 8.7 L Hct 26.2 L MCV 95.6 D MCH 31.8 MCHC 33.2 RDW 13.9 Plt Count 148 L MPV 10.5 Immature Gran % (Auto) Neut % (Auto) Lymph % (Auto) [place] % (Auto) Eos % (Auto) Baso % (Auto) Neut # (Auto) Lymph # (Auto) [place] # (Auto) Eos # (Auto) Baso # (Auto) Abs Immat Gran (auto) Absolute Nucleated RBC 0.000 Nucleated RBC % (auto) 0.0 Smear Tech's Comments Smear Path Review PT INR APTT Sodium Potassium Chloride Carbon Dioxide Anion Gap BUN Creatinine Estim Creat Clear Calc Estimated GFR POC Glucose 142 H 184 H Random Glucose Lactic Acid Calcium Urine Color Urine Appearance Urine pH Ur Specific [place] Urine Protein Urine Glucose (UA) Urine Ketones Urine Blood Urine Nitrite Ur Leukocyte Esterase Urine RBC Urine WBC Ur Squamous Epith Cells Urine Bacteria Blood Type Antibody Screen Crossmatch 07/04/20 07/04/20 07/05/20 16:39 21:11 05:37 WBC 8.0 RBC 2.52 L Hgb 7.7 L Hct 23.3 L MCV 92.5 MCH 30.6 MCHC 33.0 RDW 14.0 Plt Count 202 D MPV 9.5 Immature Gran % (Auto) 0.4 Neut % (Auto) 73.3 H Lymph % (Auto) 11.9 L [place] % (Auto) 9.0 Eos % (Auto) 4.6 H Baso % (Auto) 0.8 Neut # (Auto) 5.9 Lymph # (Auto) 1.0 L [place] # (Auto) 0.7 Eos # (Auto) 0.4 Baso # (Auto) 0.1 Abs Immat Gran (auto) 0.03 Absolute Nucleated RBC 0.000 Nucleated RBC % (auto) 0.0 Smear Tech's Comments Smear Path Review PT INR APTT Sodium Potassium Chloride Carbon Dioxide Anion Gap BUN Creatinine Estim Creat Clear Calc Estimated GFR POC Glucose 213 H 209 H Random Glucose Lactic Acid Calcium Urine Color Urine Appearance Urine pH Ur Specific [place] Urine Protein Urine Glucose (UA) Urine Ketones Urine Blood Urine Nitrite Ur Leukocyte Esterase Urine RBC Urine WBC Ur Squamous Epith Cells Urine Bacteria Blood Type Antibody Screen Crossmatch 07/05/20 07/05/20 07/05/20 05:37 07:48 09:42 WBC RBC Hgb Hct MCV MCH MCHC RDW Plt Count MPV Immature Gran % (Auto) Neut % (Auto) Lymph % (Auto) [place] % (Auto) Eos % (Auto) Baso % (Auto) Neut # (Auto) Lymph # (Auto) [place] # (Auto) Eos # (Auto) Baso # (Auto) Abs Immat Gran (auto) Absolute Nucleated RBC Nucleated RBC % (auto) Smear Tech's Comments Smear Path Review PT INR APTT Sodium 135 Potassium 4.3 Chloride 107 Carbon Dioxide 23 Anion Gap 9 L BUN 11 Creatinine 0.82 Estim Creat Clear Calc 81.3 Estimated GFR > 60 POC Glucose 192 H Random Glucose 205 H Lactic Acid Calcium 7.4 L Urine Color Urine Appearance Urine pH Ur Specific [place] Urine Protein Urine Glucose (UA) Urine Ketones Urine Blood Urine Nitrite Ur Leukocyte Esterase Urine RBC Urine WBC Ur Squamous Epith Cells Urine Bacteria Blood Type B Positive Antibody Screen NEGATIVE Crossmatch See Detail 07/05/20 11:23 WBC RBC Hgb Hct MCV MCH MCHC RDW Plt Count MPV Immature Gran % (Auto) Neut % (Auto) Lymph % (Auto) [place] % (Auto) Eos % (Auto) Baso % (Auto) Neut # (Auto) Lymph # (Auto) [place] # (Auto) Eos # (Auto) Baso # (Auto) Abs Immat Gran (auto) Absolute Nucleated RBC Nucleated RBC % (auto) Smear Tech's Comments Smear Path Review PT INR APTT Sodium Potassium Chloride Carbon Dioxide Anion Gap BUN Creatinine Estim Creat Clear Calc Estimated GFR POC Glucose 158 H Random Glucose Lactic Acid Calcium Urine Color Urine Appearance Urine pH Ur Specific [place] Urine Protein Urine Glucose (UA) Urine Ketones Urine Blood Urine Nitrite Ur Leukocyte Esterase Urine RBC Urine WBC Ur Squamous Epith Cells Urine Bacteria Blood Type Antibody Screen Crossmatch Documented by User: Deni Zavala 07/05/20 17:12 PMF Past Medical History Medical History Bladder cancer Social History Social History Household Members: Spouse Housing: House Do you presently have visiting nurse or other home services: No Alcohol intake: unknown Smoking Status: Former smoker Smoked in Last 30 Days: Yes Smoking Quit Date: quit 2 yrs ago Patient Interested in Nicotine Replacement: No Patient Given Instructions on How to Stop Smoking: No Second Hand Smoke Exposure: No Use of substances other than those prescribed or required for medical reasons: No Currently Displaying Signs/Symptoms of Drug Intoxication Withdrawal: No Any prior treatment program specific to substance use: No Have you been hit, kicked, punched, or otherwise hurt by someone within the past year? If so, by whom?: No Do you feel safe in your current relationship?: Yes Is there a partner from a previous relationship who is making you feel unsafe now?: No Are you made to feel afraid or neglected: No Advance Directives: No Advance Directives Information Provided: No Advance Directives on File: No Do you have thoughts of harming others: None Do you have a plan to hurt others: No Plan Recently lost weight without trying: No service: Yes Current occupational status: retired [employer] Allergies Allergy/AdvReac Type Severity Reaction Status Date / Time No Known Allergies Allergy Verified 07/01/20 22:12 [No Known Allergies*] Home Medications Medication Instructions Recorded Confirmed Type atorvastatin 20 mg PO BEDTIME 07/01/20 07/01/20 History ciprofloxacin HCl [Cipro] 500 mg PO BID 07/01/20 07/01/20 History glipizide 5 mg PO DAILY 07/01/20 07/01/20 History lisinopril 20 mg PO DAILY 07/01/20 07/01/20 History Assessment and Plan Assessment Anesthesia Assessment: Anesthesia Plan Discussed and Consent Obtained Final Anesthetic Review NPO: Yes Anesthetic Plan Anesthetic Plan: GA Disposition: Standard PACU
[2020-07-05 16:27] LABS: Glucose, Whole Blood 150 mg/dL (60-115)
--- NOTE | 2020-07-05 17:15 | HO.ANESPROP2 ---
[facility] Past Medical History Medical History Bladder cancer Social History Social History Household Members: Spouse Housing: House Do you presently have visiting nurse or other home services: No Alcohol intake: unknown Smoking Status: Former smoker Smoked in Last 30 Days: Yes Smoking Quit Date: quit 2 yrs ago Patient Interested in Nicotine Replacement: No Patient Given Instructions on How to Stop Smoking: No Second Hand Smoke Exposure: No Use of substances other than those prescribed or required for medical reasons: No Currently Displaying Signs/Symptoms of Drug Intoxication Withdrawal: No Any prior treatment program specific to substance use: No Have you been hit, kicked, punched, or otherwise hurt by someone within the past year? If so, by whom?: No Do you feel safe in your current relationship?: Yes Is there a partner from a previous relationship who is making you feel unsafe now?: No Are you made to feel afraid or neglected: No Advance Directives: No Advance Directives Information Provided: No Advance Directives on File: No Do you have thoughts of harming others: None Do you have a plan to hurt others: No Plan Recently lost weight without trying: No service: Yes Current occupational status: retired [employer] Allergies Allergy/AdvReac Type Severity Reaction Status Date / Time No Known Allergies Allergy Verified 07/01/20 22:12 [No Known Allergies*] Home Medications Medication Instructions Recorded Confirmed Type atorvastatin 20 mg PO BEDTIME 07/01/20 07/01/20 History ciprofloxacin HCl [Cipro] 500 mg PO BID 07/01/20 07/01/20 History glipizide 5 mg PO DAILY 07/01/20 07/01/20 History lisinopril 20 mg PO DAILY 07/01/20 07/01/20 History Exam Exam Date and Time: July 05, 2020 1715 Height,Weight and Vital Signs: Height 5 ft 10 in Weight 71.668 kg Last Vital Signs Temp 98.1 F 07/05/20 16:09 Pulse 67 07/05/20 16:09 Resp 16 07/05/20 16:09 BP 120/54 L 07/05/20 16:09 Pulse Ox 99 07/05/20 16:09 Pertinent Lab Results Pertinent Lab Results: Laboratory Tests 07/01/20 07/01/20 07/01/20 15:00 15:32 15:32 WBC 8.8 RBC 2.58 L Hgb 7.9 L Hct 23.6 L MCV 91.5 MCH 30.6 MCHC 33.5 RDW 12.8 Plt Count 214 MPV 9.1 L Immature Gran % (Auto) 0.5 H Neut % (Auto) 86.1 H Lymph % (Auto) 7.6 L [place] % (Auto) 5.0 Eos % (Auto) 0.3 Baso % (Auto) 0.5 Neut # (Auto) 7.6 Lymph # (Auto) 0.7 L [place] # (Auto) 0.4 Eos # (Auto) 0.0 Baso # (Auto) 0.0 Abs Immat Gran (auto) 0.04 H Absolute Nucleated RBC 0.000 Nucleated RBC % (auto) 0.0 Smear Tech's Comments VERIFIED Smear Path Review PT INR APTT Sodium 135 Potassium 4.7 Chloride 103 Carbon Dioxide 23 Anion Gap 14 BUN 23 H Creatinine 1.26 Estim Creat Clear Calc TNP Estimated GFR 56 POC Glucose Random Glucose 210 H Lactic Acid Calcium 8.8 Urine Color RED Urine Appearance TURBID Urine pH 6.5 Ur Specific [place] 1.020 Urine Protein 3+ H Urine Glucose (UA) 100 H Urine Ketones 5 Urine Blood 3+ H Urine Nitrite POS H Ur Leukocyte Esterase 2+ H Urine RBC TNTC H Urine WBC 5-9 H Ur Squamous Epith Cells NONE Urine Bacteria TRACE Blood Type Antibody Screen Crossmatch 07/01/20 07/01/20 07/01/20 16:47 16:47 17:00 WBC RBC Hgb Hct MCV MCH MCHC RDW Plt Count MPV Immature Gran % (Auto) Neut % (Auto) Lymph % (Auto) [place] % (Auto) Eos % (Auto) Baso % (Auto) Neut # (Auto) Lymph # (Auto) [place] # (Auto) Eos # (Auto) Baso # (Auto) Abs Immat Gran (auto) Absolute Nucleated RBC Nucleated RBC % (auto) Smear Tech's Comments Smear Path Review PT 12.9 INR 1.1 APTT 28.7 Sodium Potassium Chloride Carbon Dioxide Anion Gap BUN Creatinine Estim Creat Clear Calc Estimated GFR POC Glucose Random Glucose Lactic Acid 1.1 Calcium Urine Color Urine Appearance Urine pH Ur Specific [place] Urine Protein Urine Glucose (UA) Urine Ketones Urine Blood Urine Nitrite Ur Leukocyte Esterase Urine RBC Urine WBC Ur Squamous Epith Cells Urine Bacteria Blood Type B Positive Antibody Screen NEGATIVE Crossmatch See Detail 07/02/20 07/02/20 07/02/20 05:11 05:11 07:28 WBC 15.8 H RBC 2.76 L Hgb 8.6 L Hct 24.7 L MCV 89.5 MCH 31.2 MCHC 34.8 RDW 13.5 Plt Count 194 MPV 9.3 L Immature Gran % (Auto) 0.8 H Neut % (Auto) 86.7 H Lymph % (Auto) 5.2 L [place] % (Auto) 7.0 Eos % (Auto) 0.0 Baso % (Auto) 0.3 Neut # (Auto) 13.7 H Lymph # (Auto) 0.8 L [place] # (Auto) 1.1 Eos # (Auto) 0.0 Baso # (Auto) 0.0 Abs Immat Gran (auto) 0.13 H Absolute Nucleated RBC 0.000 Nucleated RBC % (auto) 0.0 Smear Tech's Comments Smear Path Review PT INR APTT Sodium 134 L Potassium 3.9 Chloride 104 Carbon Dioxide 22 Anion Gap 12 BUN 16 Creatinine 0.96 Estim Creat Clear Calc 69.4 Estimated GFR > 60 POC Glucose 157 H Random Glucose 190 H Lactic Acid Calcium 7.9 L Urine Color Urine Appearance Urine pH Ur Specific [place] Urine Protein Urine Glucose (UA) Urine Ketones Urine Blood Urine Nitrite Ur Leukocyte Esterase Urine RBC Urine WBC Ur Squamous Epith Cells Urine Bacteria Blood Type Antibody Screen Crossmatch 07/02/20 07/02/20 07/02/20 11:11 16:59 21:07 WBC RBC Hgb Hct MCV MCH MCHC RDW Plt Count MPV Immature Gran % (Auto) Neut % (Auto) Lymph % (Auto) [place] % (Auto) Eos % (Auto) Baso % (Auto) Neut # (Auto) Lymph # (Auto) [place] # (Auto) Eos # (Auto) Baso # (Auto) Abs Immat Gran (auto) Absolute Nucleated RBC Nucleated RBC % (auto) Smear Tech's Comments Smear Path Review PT INR APTT Sodium Potassium Chloride Carbon Dioxide Anion Gap BUN Creatinine Estim Creat Clear Calc Estimated GFR POC Glucose 116 H 120 H 120 H Random Glucose Lactic Acid Calcium Urine Color Urine Appearance Urine pH Ur Specific [place] Urine Protein Urine Glucose (UA) Urine Ketones Urine Blood Urine Nitrite Ur Leukocyte Esterase Urine RBC Urine WBC Ur Squamous Epith Cells Urine Bacteria Blood Type Antibody Screen Crossmatch 07/03/20 07/03/20 07/03/20 05:50 07:57 11:18 WBC 12.0 H RBC 2.27 L Hgb 7.1 L Hct 21.0 L* MCV 92.5 MCH 31.3 MCHC 33.8 RDW 14.0 Plt Count 176 MPV 9.7 Immature Gran % (Auto) 0.4 Neut % (Auto) 84.4 H Lymph % (Auto) 7.5 L [place] % (Auto) 6.9 Eos % (Auto) 0.4 Baso % (Auto) 0.4 Neut # (Auto) 10.1 H Lymph # (Auto) 0.9 L [place] # (Auto) 0.8 Eos # (Auto) 0.1 Baso # (Auto) 0.1 Abs Immat Gran (auto) 0.05 H Absolute Nucleated RBC 0.000 Nucleated RBC % (auto) 0.0 Smear Tech's Comments Smear Path Review SEE NOTE PT INR APTT Sodium Potassium Chloride Carbon Dioxide Anion Gap BUN Creatinine Estim Creat Clear Calc Estimated GFR POC Glucose 131 H 208 H Random Glucose Lactic Acid Calcium Urine Color Urine Appearance Urine pH Ur Specific [place] Urine Protein Urine Glucose (UA) Urine Ketones Urine Blood Urine Nitrite Ur Leukocyte Esterase Urine RBC Urine WBC Ur Squamous Epith Cells Urine Bacteria Blood Type Antibody Screen Crossmatch 07/03/20 07/03/20 07/03/20 16:34 20:09 21:09 WBC 12.8 H RBC 2.85 L D Hgb 8.9 L D Hct 25.6 L D MCV 89.8 MCH 31.2 MCHC 34.8 RDW 13.3 Plt Count 166 MPV 9.4 Immature Gran % (Auto) Neut % (Auto) Lymph % (Auto) [place] % (Auto) Eos % (Auto) Baso % (Auto) Neut # (Auto) Lymph # (Auto) [place] # (Auto) Eos # (Auto) Baso # (Auto) Abs Immat Gran (auto) Absolute Nucleated RBC 0.000 Nucleated RBC % (auto) 0.0 Smear Tech's Comments Smear Path Review PT INR APTT Sodium Potassium Chloride Carbon Dioxide Anion Gap BUN Creatinine Estim Creat Clear Calc Estimated GFR POC Glucose 130 H 156 H Random Glucose Lactic Acid Calcium Urine Color Urine Appearance Urine pH Ur Specific [place] Urine Protein Urine Glucose (UA) Urine Ketones Urine Blood Urine Nitrite Ur Leukocyte Esterase Urine RBC Urine WBC Ur Squamous Epith Cells Urine Bacteria Blood Type Antibody Screen Crossmatch 07/04/20 07/04/20 07/04/20 05:54 08:02 11:32 WBC 9.5 RBC 2.74 L Hgb 8.7 L Hct 26.2 L MCV 95.6 D MCH 31.8 MCHC 33.2 RDW 13.9 Plt Count 148 L MPV 10.5 Immature Gran % (Auto) Neut % (Auto) Lymph % (Auto) [place] % (Auto) Eos % (Auto) Baso % (Auto) Neut # (Auto) Lymph # (Auto) [place] # (Auto) Eos # (Auto) Baso # (Auto) Abs Immat Gran (auto) Absolute Nucleated RBC 0.000 Nucleated RBC % (auto) 0.0 Smear Tech's Comments Smear Path Review PT INR APTT Sodium Potassium Chloride Carbon Dioxide Anion Gap BUN Creatinine Estim Creat Clear Calc Estimated GFR POC Glucose 142 H 184 H Random Glucose Lactic Acid Calcium Urine Color Urine Appearance Urine pH Ur Specific [place] Urine Protein Urine Glucose (UA) Urine Ketones Urine Blood Urine Nitrite Ur Leukocyte Esterase Urine RBC Urine WBC Ur Squamous Epith Cells Urine Bacteria Blood Type Antibody Screen Crossmatch 07/04/20 07/04/20 07/05/20 16:39 21:11 05:37 WBC 8.0 RBC 2.52 L Hgb 7.7 L Hct 23.3 L MCV 92.5 MCH 30.6 MCHC 33.0 RDW 14.0 Plt Count 202 D MPV 9.5 Immature Gran % (Auto) 0.4 Neut % (Auto) 73.3 H Lymph % (Auto) 11.9 L [place] % (Auto) 9.0 Eos % (Auto) 4.6 H Baso % (Auto) 0.8 Neut # (Auto) 5.9 Lymph # (Auto) 1.0 L [place] # (Auto) 0.7 Eos # (Auto) 0.4 Baso # (Auto) 0.1 Abs Immat Gran (auto) 0.03 Absolute Nucleated RBC 0.000 Nucleated RBC % (auto) 0.0 Smear Tech's Comments Smear Path Review PT INR APTT Sodium Potassium Chloride Carbon Dioxide Anion Gap BUN Creatinine Estim Creat Clear Calc Estimated GFR POC Glucose 213 H 209 H Random Glucose Lactic Acid Calcium Urine Color Urine Appearance Urine pH Ur Specific [place] Urine Protein Urine Glucose (UA) Urine Ketones Urine Blood Urine Nitrite Ur Leukocyte Esterase Urine RBC Urine WBC Ur Squamous Epith Cells Urine Bacteria Blood Type Antibody Screen Crossmatch 07/05/20 07/05/20 07/05/20 05:37 07:48 09:42 WBC RBC Hgb Hct MCV MCH MCHC RDW Plt Count MPV Immature Gran % (Auto) Neut % (Auto) Lymph % (Auto) [place] % (Auto) Eos % (Auto) Baso % (Auto) Neut # (Auto) Lymph # (Auto) [place] # (Auto) Eos # (Auto) Baso # (Auto) Abs Immat Gran (auto) Absolute Nucleated RBC Nucleated RBC % (auto) Smear Tech's Comments Smear Path Review PT INR APTT Sodium 135 Potassium 4.3 Chloride 107 Carbon Dioxide 23 Anion Gap 9 L BUN 11 Creatinine 0.82 Estim Creat Clear Calc 81.3 Estimated GFR > 60 POC Glucose 192 H Random Glucose 205 H Lactic Acid Calcium 7.4 L Urine Color Urine Appearance Urine pH Ur Specific [place] Urine Protein Urine Glucose (UA) Urine Ketones Urine Blood Urine Nitrite Ur Leukocyte Esterase Urine RBC Urine WBC Ur Squamous Epith Cells Urine Bacteria Blood Type B Positive Antibody Screen NEGATIVE Crossmatch See Detail 07/05/20 07/05/20 11:23 16:20 WBC RBC Hgb Hct MCV MCH MCHC RDW Plt Count MPV Immature Gran % (Auto) Neut % (Auto) Lymph % (Auto) [place] % (Auto) Eos % (Auto) Baso % (Auto) Neut # (Auto) Lymph # (Auto) [place] # (Auto) Eos # (Auto) Baso # (Auto) Abs Immat Gran (auto) Absolute Nucleated RBC Nucleated RBC % (auto) Smear Tech's Comments Smear Path Review PT INR APTT Sodium Potassium Chloride Carbon Dioxide Anion Gap BUN Creatinine Estim Creat Clear Calc Estimated GFR POC Glucose 158 H 150 H Random Glucose Lactic Acid Calcium Urine Color Urine Appearance Urine pH Ur Specific [place] Urine Protein Urine Glucose (UA) Urine Ketones Urine Blood Urine Nitrite Ur Leukocyte Esterase Urine RBC Urine WBC Ur Squamous Epith Cells Urine Bacteria Blood Type Antibody Screen Crossmatch Airway Mallampati Class: II TM Dist: >3cm Neck ROM: Limited Denture: Upper Loose/Missing/Broken Teeth: Lower Heart: RRR
[2020-07-05] MEDS: levoFLOXacin 500 MG TABLET PO (17:58)
--- NOTE | 2020-07-05 18:32 | HO.ANESPROP2 ---
HPI - Anesthesia Eval Consult details Narrative: acute posthemorrhagic anemia, Hb 7.9 [facility] Past Medical History Medical History (Updated 07/05/20 @ 18:36 by Tarun Gibson) Bladder cancer Diabetes Hypertension Peripheral vascular disease Social History Social History Household Members: Spouse Housing: House Do you presently have visiting nurse or other home services: No Alcohol intake: unknown Smoking Status: Former smoker Smoked in Last 30 Days: Yes Smoking Quit Date: quit 2 yrs ago Patient Interested in Nicotine Replacement: No Patient Given Instructions on How to Stop Smoking: No Second Hand Smoke Exposure: No Use of substances other than those prescribed or required for medical reasons: No Currently Displaying Signs/Symptoms of Drug Intoxication Withdrawal: No Any prior treatment program specific to substance use: No Have you been hit, kicked, punched, or otherwise hurt by someone within the past year? If so, by whom?: No Do you feel safe in your current relationship?: Yes Is there a partner from a previous relationship who is making you feel unsafe now?: No Are you made to feel afraid or neglected: No Advance Directives: No Advance Directives Information Provided: No Advance Directives on File: No Do you have thoughts of harming others: None Do you have a plan to hurt others: No Plan Recently lost weight without trying: No service: Yes Current occupational status: retired [employer] Allergies Allergy/AdvReac Type Severity Reaction Status Date / Time No Known Allergies Allergy Verified 07/01/20 22:12 [No Known Allergies*] Home Medications Medication Instructions Recorded Confirmed Type atorvastatin 20 mg PO BEDTIME 07/01/20 07/01/20 History ciprofloxacin HCl [Cipro] 500 mg PO BID 07/01/20 07/01/20 History glipizide 5 mg PO DAILY 07/01/20 07/01/20 History lisinopril 20 mg PO DAILY 07/01/20 07/01/20 History Exam Exam Date and Time: July 05, [id number] Height,Weight and Vital Signs: Height 5 ft 10 in Weight 71.668 kg Last Vital Signs Temp 98.1 F 07/05/20 16:09 Pulse 67 07/05/20 16:09 Resp 16 07/05/20 16:09 BP 120/54 L 07/05/20 16:09 Pulse Ox 99 07/05/20 16:09 Pertinent Lab Results Pertinent Lab Results: Laboratory Tests 07/01/20 07/01/20 07/01/20 15:00 15:32 15:32 WBC 8.8 RBC 2.58 L Hgb 7.9 L Hct 23.6 L MCV 91.5 MCH 30.6 MCHC 33.5 RDW 12.8 Plt Count 214 MPV 9.1 L Immature Gran % (Auto) 0.5 H Neut % (Auto) 86.1 H Lymph % (Auto) 7.6 L [place] % (Auto) 5.0 Eos % (Auto) 0.3 Baso % (Auto) 0.5 Neut # (Auto) 7.6 Lymph # (Auto) 0.7 L [place] # (Auto) 0.4 Eos # (Auto) 0.0 Baso # (Auto) 0.0 Abs Immat Gran (auto) 0.04 H Absolute Nucleated RBC 0.000 Nucleated RBC % (auto) 0.0 Smear Tech's Comments VERIFIED Smear Path Review PT INR APTT Sodium 135 Potassium 4.7 Chloride 103 Carbon Dioxide 23 Anion Gap 14 BUN 23 H Creatinine 1.26 Estim Creat Clear Calc TNP Estimated GFR 56 POC Glucose Random Glucose 210 H Lactic Acid Calcium 8.8 Urine Color RED Urine Appearance TURBID Urine pH 6.5 Ur Specific [place] 1.020 Urine Protein 3+ H Urine Glucose (UA) 100 H Urine Ketones 5 Urine Blood 3+ H Urine Nitrite POS H Ur Leukocyte Esterase 2+ H Urine RBC TNTC H Urine WBC 5-9 H Ur Squamous Epith Cells NONE Urine Bacteria TRACE Blood Type Antibody Screen Crossmatch 07/01/20 07/01/20 07/01/20 16:47 16:47 17:00 WBC RBC Hgb Hct MCV MCH MCHC RDW Plt Count MPV Immature Gran % (Auto) Neut % (Auto) Lymph % (Auto) [place] % (Auto) Eos % (Auto) Baso % (Auto) Neut # (Auto) Lymph # (Auto) [place] # (Auto) Eos # (Auto) Baso # (Auto) Abs Immat Gran (auto) Absolute Nucleated RBC Nucleated RBC % (auto) Smear Tech's Comments Smear Path Review PT 12.9 INR 1.1 APTT 28.7 Sodium Potassium Chloride Carbon Dioxide Anion Gap BUN Creatinine Estim Creat Clear Calc Estimated GFR POC Glucose Random Glucose Lactic Acid 1.1 Calcium Urine Color Urine Appearance Urine pH Ur Specific [place] Urine Protein Urine Glucose (UA) Urine Ketones Urine Blood Urine Nitrite Ur Leukocyte Esterase Urine RBC Urine WBC Ur Squamous Epith Cells Urine Bacteria Blood Type B Positive Antibody Screen NEGATIVE Crossmatch See Detail 07/02/20 07/02/20 07/02/20 05:11 05:11 07:28 WBC 15.8 H RBC 2.76 L Hgb 8.6 L Hct 24.7 L MCV 89.5 MCH 31.2 MCHC 34.8 RDW 13.5 Plt Count 194 MPV 9.3 L Immature Gran % (Auto) 0.8 H Neut % (Auto) 86.7 H Lymph % (Auto) 5.2 L [place] % (Auto) 7.0 Eos % (Auto) 0.0 Baso % (Auto) 0.3 Neut # (Auto) 13.7 H Lymph # (Auto) 0.8 L [place] # (Auto) 1.1 Eos # (Auto) 0.0 Baso # (Auto) 0.0 Abs Immat Gran (auto) 0.13 H Absolute Nucleated RBC 0.000 Nucleated RBC % (auto) 0.0 Smear Tech's Comments Smear Path Review PT INR APTT Sodium 134 L Potassium 3.9 Chloride 104 Carbon Dioxide 22 Anion Gap 12 BUN 16 Creatinine 0.96 Estim Creat Clear Calc 69.4 Estimated GFR > 60 POC Glucose 157 H Random Glucose 190 H Lactic Acid Calcium 7.9 L Urine Color Urine Appearance Urine pH Ur Specific [place] Urine Protein Urine Glucose (UA) Urine Ketones Urine Blood Urine Nitrite Ur Leukocyte Esterase Urine RBC Urine WBC Ur Squamous Epith Cells Urine Bacteria Blood Type Antibody Screen Crossmatch 07/02/20 07/02/20 07/02/20 11:11 16:59 21:07 WBC RBC Hgb Hct MCV MCH MCHC RDW Plt Count MPV Immature Gran % (Auto) Neut % (Auto) Lymph % (Auto) [place] % (Auto) Eos % (Auto) Baso % (Auto) Neut # (Auto) Lymph # (Auto) [place] # (Auto) Eos # (Auto) Baso # (Auto) Abs Immat Gran (auto) Absolute Nucleated RBC Nucleated RBC % (auto) Smear Tech's Comments Smear Path Review PT INR APTT Sodium Potassium Chloride Carbon Dioxide Anion Gap BUN Creatinine Estim Creat Clear Calc Estimated GFR POC Glucose 116 H 120 H 120 H Random Glucose Lactic Acid Calcium Urine Color Urine Appearance Urine pH Ur Specific [place] Urine Protein Urine Glucose (UA) Urine Ketones Urine Blood Urine Nitrite Ur Leukocyte Esterase Urine RBC Urine WBC Ur Squamous Epith Cells Urine Bacteria Blood Type Antibody Screen Crossmatch 07/03/20 07/03/20 07/03/20 05:50 07:57 11:18 WBC 12.0 H RBC 2.27 L Hgb 7.1 L Hct 21.0 L* MCV 92.5 MCH 31.3 MCHC 33.8 RDW 14.0 Plt Count 176 MPV 9.7 Immature Gran % (Auto) 0.4 Neut % (Auto) 84.4 H Lymph % (Auto) 7.5 L [place] % (Auto) 6.9 Eos % (Auto) 0.4 Baso % (Auto) 0.4 Neut # (Auto) 10.1 H Lymph # (Auto) 0.9 L [place] # (Auto) 0.8 Eos # (Auto) 0.1 Baso # (Auto) 0.1 Abs Immat Gran (auto) 0.05 H Absolute Nucleated RBC 0.000 Nucleated RBC % (auto) 0.0 Smear Tech's Comments Smear Path Review SEE NOTE PT INR APTT Sodium Potassium Chloride Carbon Dioxide Anion Gap BUN Creatinine Estim Creat Clear Calc Estimated GFR POC Glucose 131 H 208 H Random Glucose Lactic Acid Calcium Urine Color Urine Appearance Urine pH Ur Specific [place] Urine Protein Urine Glucose (UA) Urine Ketones Urine Blood Urine Nitrite Ur Leukocyte Esterase Urine RBC Urine WBC Ur Squamous Epith Cells Urine Bacteria Blood Type Antibody Screen Crossmatch 07/03/20 07/03/20 07/03/20 16:34 20:09 21:09 WBC 12.8 H RBC 2.85 L D Hgb 8.9 L D Hct 25.6 L D MCV 89.8 MCH 31.2 MCHC 34.8 RDW 13.3 Plt Count 166 MPV 9.4 Immature Gran % (Auto) Neut % (Auto) Lymph % (Auto) [place] % (Auto) Eos % (Auto) Baso % (Auto) Neut # (Auto) Lymph # (Auto) [place] # (Auto) Eos # (Auto) Baso # (Auto) Abs Immat Gran (auto) Absolute Nucleated RBC 0.000 Nucleated RBC % (auto) 0.0 Smear Tech's Comments Smear Path Review PT INR APTT Sodium Potassium Chloride Carbon Dioxide Anion Gap BUN Creatinine Estim Creat Clear Calc Estimated GFR POC Glucose 130 H 156 H Random Glucose Lactic Acid Calcium Urine Color Urine Appearance Urine pH Ur Specific [place] Urine Protein Urine Glucose (UA) Urine Ketones Urine Blood Urine Nitrite Ur Leukocyte Esterase Urine RBC Urine WBC Ur Squamous Epith Cells Urine Bacteria Blood Type Antibody Screen Crossmatch 07/04/20 07/04/20 07/04/20 05:54 08:02 11:32 WBC 9.5 RBC 2.74 L Hgb 8.7 L Hct 26.2 L MCV 95.6 D MCH 31.8 MCHC 33.2 RDW 13.9 Plt Count 148 L MPV 10.5 Immature Gran % (Auto) Neut % (Auto) Lymph % (Auto) [place] % (Auto) Eos % (Auto) Baso % (Auto) Neut # (Auto) Lymph # (Auto) [place] # (Auto) Eos # (Auto) Baso # (Auto) Abs Immat Gran (auto) Absolute Nucleated RBC 0.000 Nucleated RBC % (auto) 0.0 Smear Tech's Comments Smear Path Review PT INR APTT Sodium Potassium Chloride Carbon Dioxide Anion Gap BUN Creatinine Estim Creat Clear Calc Estimated GFR POC Glucose 142 H 184 H Random Glucose Lactic Acid Calcium Urine Color Urine Appearance Urine pH Ur Specific [place] Urine Protein Urine Glucose (UA) Urine Ketones Urine Blood Urine Nitrite Ur Leukocyte Esterase Urine RBC Urine WBC Ur Squamous Epith Cells Urine Bacteria Blood Type Antibody Screen Crossmatch 07/04/20 07/04/20 07/05/20 16:39 21:11 05:37 WBC 8.0 RBC 2.52 L Hgb 7.7 L Hct 23.3 L MCV 92.5 MCH 30.6 MCHC 33.0 RDW 14.0 Plt Count 202 D MPV 9.5 Immature Gran % (Auto) 0.4 Neut % (Auto) 73.3 H Lymph % (Auto) 11.9 L [place] % (Auto) 9.0 Eos % (Auto) 4.6 H Baso % (Auto) 0.8 Neut # (Auto) 5.9 Lymph # (Auto) 1.0 L [place] # (Auto) 0.7 Eos # (Auto) 0.4 Baso # (Auto) 0.1 Abs Immat Gran (auto) 0.03 Absolute Nucleated RBC 0.000 Nucleated RBC % (auto) 0.0 Smear Tech's Comments Smear Path Review PT INR APTT Sodium Potassium Chloride Carbon Dioxide Anion Gap BUN Creatinine Estim Creat Clear Calc Estimated GFR POC Glucose 213 H 209 H Random Glucose Lactic Acid Calcium Urine Color Urine Appearance Urine pH Ur Specific [place] Urine Protein Urine Glucose (UA) Urine Ketones Urine Blood Urine Nitrite Ur Leukocyte Esterase Urine RBC Urine WBC Ur Squamous Epith Cells Urine Bacteria Blood Type Antibody Screen Crossmatch 07/05/20 07/05/20 07/05/20 05:37 07:48 09:42 WBC RBC Hgb Hct MCV MCH MCHC RDW Plt Count MPV Immature Gran % (Auto) Neut % (Auto) Lymph % (Auto) [place] % (Auto) Eos % (Auto) Baso % (Auto) Neut # (Auto) Lymph # (Auto) [place] # (Auto) Eos # (Auto) Baso # (Auto) Abs Immat Gran (auto) Absolute Nucleated RBC Nucleated RBC % (auto) Smear Tech's Comments Smear Path Review PT INR APTT Sodium 135 Potassium 4.3 Chloride 107 Carbon Dioxide 23 Anion Gap 9 L BUN 11 Creatinine 0.82 Estim Creat Clear Calc 81.3 Estimated GFR > 60 POC Glucose 192 H Random Glucose 205 H Lactic Acid Calcium 7.4 L Urine Color Urine Appearance Urine pH Ur Specific [place] Urine Protein Urine Glucose (UA) Urine Ketones Urine Blood Urine Nitrite Ur Leukocyte Esterase Urine RBC Urine WBC Ur Squamous Epith Cells Urine Bacteria Blood Type B Positive Antibody Screen NEGATIVE Crossmatch See Detail 07/05/20 07/05/20 11:23 16:20 WBC RBC Hgb Hct MCV MCH MCHC RDW Plt Count MPV Immature Gran % (Auto) Neut % (Auto) Lymph % (Auto) [place] % (Auto) Eos % (Auto) Baso % (Auto) Neut # (Auto) Lymph # (Auto) [place] # (Auto) Eos # (Auto) Baso # (Auto) Abs Immat Gran (auto) Absolute Nucleated RBC Nucleated RBC % (auto) Smear Tech's Comments Smear Path Review PT INR APTT Sodium Potassium Chloride Carbon Dioxide Anion Gap BUN Creatinine Estim Creat Clear Calc Estimated GFR POC Glucose 158 H 150 H Random Glucose Lactic Acid Calcium Urine Color Urine Appearance Urine pH Ur Specific [place] Urine Protein Urine Glucose (UA) Urine Ketones Urine Blood Urine Nitrite Ur Leukocyte Esterase Urine RBC Urine WBC Ur Squamous Epith Cells Urine Bacteria Blood Type Antibody Screen Crossmatch Airway Mallampati Class: II TM Dist: >3cm Neck ROM: Full Denture: Upper Loose/Missing/Broken Teeth: Yes (Missing teeth, remaining are stable) Heart: RRR Lungs: CTA Assessment and Plan Assessment Anesthesia Assessment: Anesthesia Plan Discussed and Consent Obtained Final Anesthetic Review NPO: Yes ASA Class: III Final Preanesthetic Review: Meds & Allergies Reviewed, Consent Obtained/Reviewed and Med/Surg/Anes Hx Reviewed Patient Risk: Intermediate Procedure Risk: Intermediate Anesthetic Plan Anesthetic Plan: GA (LMA) Disposition: Standard PACU
[2020-07-05] MEDS: cefTRIAXone sodium 1 GM in 0.9 % Sodium Chloride 50 ML IV (19:00)
--- NOTE | 2020-07-05 19:45 | PM.OP ---
Brief Operative Note Date of procedure: 07/05/20 Pre-op diagnosis: Bladder Cancer Post-op diagnosis: same Procedure: TURBT medium - left lower side wall Prior TURP with neovascularity Catheter edema Implants: 16 Fr beyer catheter Anesthesia: MILI Surgeon: Tarun Fregoso Pathology: none sent Condition: stable Disposition: floor
[2020-07-05] MEDS: Lactated Ringers 1,000 ML 50 ML IVCONT (21:36)
[2020-07-05] MEDS: Atorvastatin Calcium 20 MG TABLET PO (21:37)
[2020-07-05] MEDS: 0.9 % Sodium Chloride Flush 3 ML SYRINGE 2 ML IVFLUSH (21:37)
[2020-07-05 21:43] LABS: Glucose, Whole Blood 178 mg/dL (60-115)
[2020-07-06 00:03] VITALS: BP 119/55; PULSE 86; RESP 18; TEMP 36.1; O2SAT 95
[2020-07-06 03:44] VITALS: BP 117/53; PULSE 79; RESP 19; TEMP 36.8; O2SAT 94
[2020-07-06 06:47] LABS: Basophils Percent Auto 0.5 % (0-2); Eosinophils Absolute Auto 0.3 X10*3/uL (0.0-0.4); Eosinophils Percent Auto 3.7 % (0-4); Hematocrit 24.8 % (42-52); Hemoglobin 8.2 g/dl (14.0-18.0); Imm Gran Abs Auto 0.03 X10*3/uL (0.00-0.03); Imm Gran Pct Auto 0.4 % (0.0-0.4); Lymphocytes Absolute Auto 0.7 X10*3/uL (1.2-4.9); Lymphocytes Percent Auto 9.3 % (20-40); MANUAL DIFF FLAG SCAN; Mean Corpuscular HGB Conc 33.1 g/dl (31.0-36.0); Mean Corpuscular Hemoglobin 30.8 pg (27.0-33.0); Mean Corpuscular Volume 93.2 fL (80-98); Mean Platelet Volume 9.3 fL (9.4-12.4); Monocytes Absolute Auto 0.7 X10*3/uL (0.1-1.2); Monocytes Percent Auto 9.7 % (2-11); Neutrophils Absolute Auto 5.6 X10*3/uL (2.0-8.3); Neutrophils Percent Auto 76.4 % (45-73); Platelet Count 201 X10*3/uL (160-400); Red Blood Count 2.66 X10*6/uL (4.60-5.80); SCAN SMEAR FLAG 1; White Blood Count 7.3 X10*3/uL (4.8-10.8)
[2020-07-06 07:24] VITALS: BP 99/51; PULSE 75; RESP 18; TEMP 36.9; O2SAT 95
[2020-07-06 07:26] LABS: Anion Gap 10 (12-20); Blood Urea Nitrogen 11 mg/dL (9-16); Calcium 7.3 mg/dL (8.4-10.2); Carbon Dioxide 23 mmol/L (22-29); Chloride 106 mmol/L (96-108); Creatinine Clr Calc Pharmacy 83.3; Estimated Glomerular Filt Rate > 60; Glucose Random 185 mg/dL (60-115); Potassium 4.4 mmol/l (3.3-5.1); Sodium 135 mmol/L (135-145)
[2020-07-06 07:38] LABS: Glucose, Whole Blood 182 mg/dL (60-115)
[2020-07-06 07:46] LABS: SLIDE REVIEW VERIFIED
[2020-07-06] MEDS: 0.9 % Sodium Chloride Flush 3 ML SYRINGE 2 ML IVFLUSH (09:04)
--- NOTE | 2020-07-06 10:26 | HO.POSTANES ---
Post Anesthesia Evaluation Post Anesthesia Evaluation Vital Signs: Vital Signs Temp Pulse Resp BP Pulse Ox 07/06/20 07:24 98.5 F 75 18 99/51 L 95 07/06/20 03:44 98.2 F 79 19 117/53 L 94 07/06/20 00:03 97 F 86 18 119/55 L 95 Anesthesia: General Mental Status: Awake Pain Control: Satisfactory Nausea/Vomiting: None Hydration: Adequate Anesthesia-Related Issues: No Anes. Related Issues
[2020-07-06 11:17] VITALS: BP 126/76; PULSE 70; RESP 18; TEMP 37.2; O2SAT 95
--- NOTE | 2020-07-06 11:20 | PC.NURSE ---
Per Urology MD, remove Palmer Catheter. Palmer removed at 1120 07/06. PT DTV by 1720, urology coming midday to assess PT for discharge.
[2020-07-06 11:51] LABS: Glucose, Whole Blood 177 mg/dL (60-115)
--- NOTE | 2020-07-06 13:12 | P.PNUR_ITS ---
Subjective Subjective Patient reports: no new complaints Interval history: TURBT yesterday Small bladder tumor left pelvic floor Other areas cauterized Catheter out this morning and urinating Follow-up for results in 1-2 weeks Physical Exam Vital Signs and I&O and Narrative: Vital Signs and I&O: Vital Signs Temp 98.9 F 07/06/20 11:17 Pulse 70 07/06/20 11:17 Resp 18 07/06/20 11:17 BP 126/76 07/06/20 11:17 Pulse Ox 95 07/06/20 11:17 Intake & Output 07/05/20 07/06/20 07/06/20 18:59 06:59 18:59 Intake Total 1430 / 1720 290 / 1720 120 / 120 Output Total 300 / 300 Balance 1430 / 1420 -10 / 1420 120 / 120 Urine Output (Aver age ml/kg/hr) 0.35 0.35 Intake: Intake, Oral [place] unt 180 / 420 240 / 420 120 / 120 Intake (Blood Pr oduct) Amount 350 / 350 Red Blood Cell s (E0382) Unit 350 / 350 [id number] Intake, Other Am ount 100 / 100 Red Blood Cell s (E0382) Unit 100 / 100 [id number] Continuous Bladd er Irrigation -200 / -200 Fluid - Amount R etained Intake, IV Amoun t 1000 / 1050 50 / 1050 cefTRIAXone so dium 1 gm In 0.9 50 / 50 % Sodium Chlor tadeo 50 ml @ 100 mls/hr IV Q24H ESAU Rx#: [id number] 0.9 % Sodium C hloride 1,000 ml 1000 / 1000 @ 100 mls/hr I VCONT .Q10H ESAU Rx#:[id number] Output: Output, Urine Am ount (Catheter) 300 / 300 3-way Urethral 300 / 300 Other: Meal Refused No NPO Yes Breakfast % Eate n 50% 75% Lunch % Eaten 75% Urine beyer Urine Color Red Tinged Yellow Continuous Bladd er Irrigation 3,000 Fluid - Amount I nstilled 3-way Urethral 500 Urethral 500 Continuous Bladd er Irrigation 3,200 Fluid - Amount D rained 3-way Urethral 2,700 Body Mass Index 22.6 Const: General: cooperative, healthy appearing, comfortable and no acute distress Nutritional Appearance: average body habitus Orientation/consciousness: oriented to person, oriented to place and oriented to time Eyes: General: appearance normal, both eyes and all related structures Chest: Chest palpation & inspection: normal inspection of the chest Resp: Effort & Inspection: normal respiratory effort Cardio: Rate: regular rate GI: Inspection: Yes normal to inspection Skin: Hair: normal Neuro: General: oriented to person, oriented to place and oriented to time Extrem: General: Yes normal to inspection Progress Note: A&P Assessment and plan (1) Bladder tumor: Status: Acute Assessment and Plan: See in office in 1-2 weeks Fall Risk Details Current Medications: Current Medications Generic Name Dose Route Start Last Admin Trade Name Freq PRN Reason Stop Dose Admin Acetaminophen 650 mg 07/02/20 01:32 Acetaminophen 650 Mg Supp.Rect HI Q6H PRN Pain, Mild (Pain Scale 1-3) Atorvastatin Calcium 20 mg 07/02/20 21:00 07/05/20 21:37 Atorvastatin Calcium 20 Mg Tablet PO 20 mg BEDTIME ESAU Administration Belladonna Alkaloids/Opium 1 supp 07/04/20 14:17 07/04/20 16:13 Opium/Belladonna 60/16.2 Supp.Rect HI 1 supp BID PRN Administration Perineal Discomfort Fentanyl 25 mcg 07/05/20 19:22 Fentanyl Citrate/Pf 100 Mcg/2 Ml Vial IVPUSH Q5M PRN Pain, Mild (Pain Scale 1-3) Fentanyl 50 mcg 07/05/20 19:22 Fentanyl Citrate/Pf 100 Mcg/2 Ml Vial IVPUSH Q5M PRN Pain, Moderate (Pain Scale 4-6 Hydromorphone HCl 0.5 mg 07/05/20 19:22 Hydromorphone Hcl 0.5 Mg/0.5 Ml Syringe IVPUSH ONCE PRN Moderate Pain Ceftriaxone Sodium 1 gm/ 50 mls @ 100 mls/hr 07/02/20 17:00 07/05/20 21:24 Sodium Chloride IV Infused Q24H ESAU Infusion Lactated Ringer's 1,000 mls @ 50 mls/hr 07/05/20 18:45 07/05/20 21:36 Lr IVCONT 50 mls/hr .Q20H ESAU Administration Insulin Human Lispro 0 unit 07/02/20 07:30 07/06/20 12:03 Insulin Lispro 100 Unit/Ml 3 Ml Vial SUBCUT Not Given QIDACHS [facility] Protocol Lisinopril 10 mg 07/04/20 09:00 07/06/20 09:05 Lisinopril 10 Mg Tablet PO Not Given DAILY [facility] Protocol Magnesium Hydroxide 30 ml 07/02/20 01:32 Milk Of Magnesia 30 Ml Oral.Susp PO DAILY PRN Constipation Ondansetron HCl 4 mg 07/02/20 01:32 Ondansetron Hcl 4 Mg/2 Ml Vial IVPUSH Q8H PRN Nausea and Vomiting Oxycodone HCl 5 mg 07/02/20 01:32 07/05/20 21:37 Oxycodone Hcl Immed Release 5 Mg Tablet PO 5 mg Q6H PRN Administration Pain, Severe (Pain Scale 7-10) Pharmacy Consult 1 each 07/01/20 20:37 Consult Rx Perform Med Rec MISCELLANE ONCE PRN Consult order Sodium Chloride 2 ml 07/02/20 01:32 07/06/20 09:04 0.9 % Sodium Chloride Flush 3 Ml Syringe IVFLUSH 2 ml QSHIFT ESAU Administration Time Spent With Patient Time: Total time spent is greater than 50% in coordination of care (as documented) at patient's floor/unit and/or counseling patient: Time with patient: less than 15 minutes
--- NOTE | 2020-07-06 13:39 | MHC.CM.PN ---
Patient will be discharged home today no services. Family will provide transportation.
--- NOTE | 2020-07-06 13:42 | PM.DS ---
DS: Providers Provider Date of admission: 07/01/20 20:56 Primary care physician: Laith Belle MD Consults: 07/02/20 01:32 Consult to Physician Routine Consulting Provider: Tarun Fregoso Reason for consultation: Hematuria, recurrent bladder scan DS: Diagnosis Discharge Diagnosis (1) Bladder tumor: Status: Acute DS: Summary Hospital Course Hospital Course: 75-year-old gentleman with past medical history of diabetes, hypertension bladder cancer in 2018 presented to [facility] [place] due to hematuria of several days duration he was seen by his urologist few days ago and was given antibiotics but since symptoms persisted he came to the emergency room with complaints of dysuria urinary frequency and lower abdominal discomfort patient also complained of chills with no fevers, he denied any chest pain no nausea vomiting on arrival to the emergency room patient was noted to have a hematocrit of 23.6 hemoglobin 7.9 creatinine of 1.26 patient received 1 unit of packed RBC CBI was initiated and patient was subsequently admitted to medical floor acute blood loss anemia due to hematuria. Patient received total 4 units of packed RBC hematocrit has since stabilized hematuria has resolved with the use of CBI subsequently patient underwent TURBT procedure by Dr. Fregoso postprocedure patient is doing better Beyer catheter has been removed patient voiding clear urine therefore is being discharged home on 5 more days of Cipro and to have outpatient follow-up with Dr. Fregoso in next 1-2 weeks hypertension patient was noted to have low normal blood pressure therefore dose of lisinopril has been reduced to 10 mg by mouth daily Diabetes mellitus patient blood sugar is stable continue diabetic diet and home medication peripheral vascular disease continue Lipitor Time Spent with Patient Time attestation: Total time spent providing and/or coordinating discharge services: Physical Exam Vital Signs and I&O and Narrative: Vital Signs and I&O: Vital Signs Temp 98.9 F 07/06/20 11:17 Pulse 70 07/06/20 11:17 Resp 18 07/06/20 11:17 BP 126/76 07/06/20 11:17 Pulse Ox 95 07/06/20 11:17 Intake & Output 07/05/20 07/06/20 07/06/20 18:59 06:59 18:59 Intake Total 1430 / 1720 290 / 1720 120 / 120 Output Total 300 / 300 Balance 1430 / 1420 -10 / 1420 120 / 120 Urine Output (Aver age ml/kg/hr) 0.35 0.35 Intake: Intake, Oral [place] unt 180 / 420 240 / 420 120 / 120 Intake (Blood Pr oduct) Amount 350 / 350 Red Blood Cell s (E0382) Unit 350 / 350 [id number] Intake, Other Am ount 100 / 100 Red Blood Cell s (E0382) Unit 100 / 100 [id number] Continuous Bladd er Irrigation -200 / -200 Fluid - Amount R etained Intake, IV Amoun t 1000 / 1050 50 / 1050 cefTRIAXone so dium 1 gm In 0.9 50 / 50 % Sodium Chlor tadeo 50 ml @ 100 mls/hr IV Q24H ESAU Rx#: [id number] 0.9 % Sodium C hloride 1,000 ml 1000 / 1000 @ 100 mls/hr I VCONT .Q10H ESAU Rx#:[id number] Output: Output, Urine Am ount (Catheter) 300 / 300 3-way Urethral 300 / 300 Other: Meal Refused No NPO Yes Breakfast % Eate n 50% 75% Lunch % Eaten 75% Urine beyer Urine Color Red Tinged Yellow Continuous Bladd er Irrigation 3,000 Fluid - Amount I nstilled 3-way Urethral 500 Urethral 500 Continuous Bladd er Irrigation 3,200 Fluid - Amount D rained 3-way Urethral 2,700 Body Mass Index 22.6 General: no acute distress ,patient oriented x3 Neck supple Resp: normal respiratory effort, clear to auscultation bilaterally Cardio: Rate: regular rate Rhythm GI: Soft to palpation, no abdominal discomfort, normal bowel sounds Skin: no rashes or lesions noted, pallor Neuro: patient oriented x3 ,normal cognition Extrem: no pedal edema DS: Data Data Completed and Pending Labs on day of discharge: Labs from last 24 hours 07/06/20 07/06/20 07/06/20 11:48 07:27 05:29 WBC RBC Hgb Hct MCV MCH MCHC RDW Plt Count MPV Immature Gran % (Auto) Neut % (Auto) Lymph % (Auto) [place] % (Auto) Eos % (Auto) Baso % (Auto) Neut # (Auto) Lymph # (Auto) [place] # (Auto) Eos # (Auto) Baso # (Auto) Abs Immat Gran (auto) Absolute Nucleated RBC Nucleated RBC % (auto) Smear Tech's Comments Sodium 135 Potassium 4.4 Chloride 106 Carbon Dioxide 23 Anion Gap 10 L BUN 11 Creatinine 0.80 Estim Creat Clear Calc 83.3 Estimated GFR > 60 POC Glucose 177 H 182 H Random Glucose 185 H Calcium 7.3 L Crossmatch 07/06/20 07/05/20 07/05/20 05:29 21:27 16:20 WBC 7.3 RBC 2.66 L Hgb 8.2 L Hct 24.8 L MCV 93.2 MCH 30.8 MCHC 33.1 RDW 14.0 Plt Count 201 MPV 9.3 L Immature Gran % (Auto) 0.4 Neut % (Auto) 76.4 H Lymph % (Auto) 9.3 L [place] % (Auto) 9.7 Eos % (Auto) 3.7 Baso % (Auto) 0.5 Neut # (Auto) 5.6 Lymph # (Auto) 0.7 L [place] # (Auto) 0.7 Eos # (Auto) 0.3 Baso # (Auto) 0.0 Abs Immat Gran (auto) 0.03 Absolute Nucleated RBC 0.000 Nucleated RBC % (auto) 0.0 Smear Tech's Comments VERIFIED Sodium Potassium Chloride Carbon Dioxide Anion Gap BUN Creatinine Estim Creat Clear Calc Estimated GFR POC Glucose 178 H 150 H Random Glucose Calcium Crossmatch 07/05/20 09:42 WBC RBC Hgb Hct MCV MCH MCHC RDW Plt Count MPV Immature Gran % (Auto) Neut % (Auto) Lymph % (Auto) [place] % (Auto) Eos % (Auto) Baso % (Auto) Neut # (Auto) Lymph # (Auto) [place] # (Auto) Eos # (Auto) Baso # (Auto) Abs Immat Gran (auto) Absolute Nucleated RBC Nucleated RBC % (auto) Smear Tech's Comments Sodium Potassium Chloride Carbon Dioxide Anion Gap BUN Creatinine Estim Creat Clear Calc Estimated GFR POC Glucose Random Glucose Calcium Crossmatch See Detail Preliminary micro results at discharge 07/01/20 16:47 Blood Culture - Preliminary Blood - Venous No growth after 48 hours. 07/01/20 16:47 Blood Culture - Preliminary Blood - Venous No growth after 48 hours. Discharge Plan Discharge Patient Disposition: Home, Self-Care Referrals: Laith Belle MD [Primary Care Provider] - Discharge Medications: New lisinopril 10 mg tablet 10 mg PO DAILY Qty: 30 RF: 0 ciprofloxacin HCl [Cipro] 500 mg tablet 500 mg PO BID Qty: 10 RF: 0 Continued atorvastatin 20 mg Tablet 20 mg PO BEDTIME RF: 0 glipizide 5 mg Tablet Extended Release 24hr 5 mg PO DAILY RF: 0 Discontinued lisinopril 20 mg Tablet 20 mg PO DAILY RF: 0 ciprofloxacin HCl [Cipro] 500 mg Tablet 500 mg PO BID RF: 0 Discharge Orders: Discharge Order (Routine); Ordered 07/06/20 Ordered By: Domingo Jain Activity on Discharge: As tolerated Visit Report Forms: Patient Portal Discharge page Care Plan Goals: as per discharge plan Health Concerns: as per discharge plan Plan of Treatment: outpatient follow-up with Dr. Fregoso from Urology next 1-2 weeks
--- NOTE | 2020-07-23 09:45 | W.PM.OPN ---
Operative Note Operative Note Narrative: PreOperative Diagnosis: hematuria Post Operative Diagnosis: 1. bladder cancer recurrence, 2. prostate congestion Procedure: TURBT medium Surgeon: Dr Tarun Fregoso Anesthesia: general Indications for procedure: this is a 75-year-old male. Previously known to have bladder cancer. Had persistent hematuria on hospital. CT scan question of bladder tumor recurrence. Plan for cystoscopy, control of hematuria. Procedure: After informed consent was verified patient brought to the operating room placed in supine position. Anesthesia administered per protocol. Patient placed in modified dorsal lithotomy position and prepped and draped in sterile fashion. Safety pause time-out performed. Antibiotics being given. Twenty-one Kinyarwanda cystoscope inserted per urethra. No abnormality noted in the anterior or posterior urethra. prostate has prior TURP with neovascularity and congestion. The right ureteric orifice was normal position. There was edema on the dome of the bladder secondary to Palmer catheter. There was flat recurrence of low-grade bladder cancer over the left sidewall. Using a resectoscope the area of recurrence was fulgurated. This was approximately 2 x 2 inches. Particularly edematous areas secondary the Palmer will also fulgurated. Neovascularity on the sidewall of the prostate was also fulgurated. A completion the procedure there was minimal hematuria. The resectoscope was removed and a Palmer catheter placed. he tolerated procedure well. He was extubated in the operating room and transferred in stable condition to the recovery area. Specimens none Drains Palmer catheter as stated above
== END 2020-07-06 14:38 | disposition home or self-care (01) | DRG 669 ==
LOC: HO.ED 20:47 → HO.S3 20:58 → HO.IMC 23:04
PROVIDERS: Anesthesiology; Internal Medicine; Physician Assistant; Urology; Admitting Provider Internal Medicine; Emergency Provider Emergency Medicine; PCP Internal Medicine; Visit Provider Hospitalist
PROC: 0TBB8ZZ Excision of Bladder, Via Natural or Artificial Opening Endoscopic (ICD-10-PCS; principal; 2020-07-05 14:00)
DX: C67.9 Malignant neoplasm of bladder, unspecified (principal); D62 Acute posthemorrhagic anemia; I10 Essential (primary) hypertension; E11.51 Type 2 diabetes mellitus with diabetic peripheral angiopathy without gangrene; Z79.899 Other long term (current) drug therapy
CPT/HCPCS: 36415; 74176; 80048; 81001; 81003; 82947; 83605; 85025; 85027; 85060; 85610; 85730; 86850; 86900; 86901; 86920; 86923; 87040; 87086; 96361; 96374; 99212; 99284; 99285; J0696; J2270; J2405; J3010; P9016

== ENCOUNTER → 2020-07-14 08:33 | Outpatient (BNVA) | payer MEDICARE, OTHER, SELFPAY | PROVIDERS: PCP Internal Medicine; Visit Provider Urology | DX: C67.9 Malignant neoplasm of bladder, unspecified (principal); N42.1 Congestion and hemorrhage of prostate | CPT/HCPCS: 99212 ==

== ENCOUNTER → 2020-09-29 10:32 | Outpatient (BNVA) | payer MEDICARE, OTHER, SELFPAY | PROVIDERS: PCP Internal Medicine; Visit Provider Urology | DX: R31.0 Gross hematuria (principal) | CPT/HCPCS: 99212 ==

== ENCOUNTER → 2021-01-06 08:50 | Outpatient (BNVA) | payer MEDICARE, OTHER, SELFPAY | PROVIDERS: Visit Provider Urology | DX: N40.1 Benign prostatic hyperplasia with lower urinary tract symptoms (principal); N13.8 Other obstructive and reflux uropathy; C67.4 Malignant neoplasm of posterior wall of bladder | CPT/HCPCS: 52000; 52332; 99212 ==

== ENCOUNTER → 2021-07-12 08:49 | Outpatient (BNVA) | payer MEDICARE, OTHER, SELFPAY | PROVIDERS: Visit Provider Urology | DX: N40.1 Benign prostatic hyperplasia with lower urinary tract symptoms (principal); N13.8 Other obstructive and reflux uropathy; C67.4 Malignant neoplasm of posterior wall of bladder | CPT/HCPCS: 52000; 99212 ==

== ENCOUNTER → 2022-01-11 08:45 | Outpatient (BNVA) | payer MEDICARE, OTHER, SELFPAY | PROVIDERS: PCP Internal Medicine; Visit Provider Urology | DX: N40.1 Benign prostatic hyperplasia with lower urinary tract symptoms (principal); N13.8 Other obstructive and reflux uropathy; C67.4 Malignant neoplasm of posterior wall of bladder | CPT/HCPCS: 52000; 99212 ==

== ENCOUNTER → 2022-03-07 10:54 | Outpatient (BNVA) | payer MEDICARE, OTHER, SELFPAY | PROVIDERS: PCP Internal Medicine; Visit Provider Urology | DX: C67.4 Malignant neoplasm of posterior wall of bladder (principal); N40.1 Benign prostatic hyperplasia with lower urinary tract symptoms; N13.8 Other obstructive and reflux uropathy | CPT/HCPCS: 99212 ==

== ENCOUNTER 2022-03-13 05:51 | Day surgery (SDC) | payer MEDICARE, OTHER, SELFPAY ==
[2022-03-07 10:34] VITALS: BMI 23.1
--- NOTE | 2022-03-10 10:22 | HO.ANESPROP2 ---
Documented by User: Ora David NP 03/10/22 10:36 HPI - Anesthesia Eval Consult details Narrative: 76yo M for ?Laser Ablation Prostate w/Green Light, left retrograde possible bladder biopsy 12/2021 [facility] admission with hematuria, requiring beyer cath and irrigation s/p turbt 07/2020 with GA-LMA 4 PMFSH Active Problems Active Problems: All Active Problems (Updated 03/07/22 @ 10:35 by Geovanna Conteh RN) Bladder cancer (Acute) Congestion and hemorrhage of prostate (Acute) Gross hematuria (Acute) BPH w urinary obs/LUTS (Acute) Past Medical History Medical History Acute blood loss anemia Bladder cancer Bladder tumor Diabetes Elevated cholesterol Hypertension Peripheral vascular disease Urinary tract infection Surgical History Surgical History History of transurethral destruction of bladder lesion Social History Social History Household Members: Spouse Housing: House Do you presently have visiting nurse or other home services: No Alcohol intake: unknown Patient Tobacco Use Status: Former Tobacco user Quit Date: 4 years ago Second Hand Smoke Exposure: No service: Yes Current occupational status: retired [employer] Allergies Allergy/AdvReac Type Severity Reaction Status Date / Time No Known Allergies Allergy Verified 03/07/22 11:00 [No Known Allergies*] Home Medications Medication Instructions Recorded Confirmed Last Taken Type atorvastatin 20 mg tablet 20 mg PO BEDTIME 07/01/20 03/07/22 06/30/20 History glipizide 5 mg tablet, extended 5 mg PO DAILY 07/01/20 03/07/22 07/01/20 History release 24 hr metformin 500 mg tablet 500 mg PO BID 01/06/21 03/13/22 03/13/22 History cephalexin 500 mg capsule 500 mg PO QID 01/11/22 03/07/22 Unknown History lisinopril 40 mg tablet 40 mg PO DAILY 01/11/22 03/07/22 Unknown History Exam Exam Date and Time: March 10, 2022 1022 Height,Weight and Vital Signs: Height 5 ft 9 in Weight 71.214 kg Pertinent Lab Results Pertinent Lab Results: 12/2021 labs from [facility] admit with hematuria on chart H&H low Na low Assessment and Plan Assessment Anesthesia Assessment: Chart Reviewed Documented by User: Nemesio Poole MD 03/13/22 15:59 [facility] Past Medical History Medical History Acute blood loss anemia Bladder cancer Bladder tumor Diabetes Elevated cholesterol Hypertension Peripheral vascular disease Urinary tract infection Family History Family history of problems with anesthesia: No Surgical History Surgical History History of transurethral destruction of bladder lesion History of Problems with Anesthesia: No Social History Social History Household Members: Spouse Housing: House Do you presently have visiting nurse or other home services: No Alcohol intake: unknown Patient Tobacco Use Status: Former Tobacco user Quit Date: 4 years ago Second Hand Smoke Exposure: No service: Yes Current occupational status: retired [employer] Allergies Allergy/AdvReac Type Severity Reaction Status Date / Time No Known Allergies Allergy Verified 03/07/22 11:00 [No Known Allergies*] Home Medications Medication Instructions Recorded Confirmed Last Taken Type atorvastatin 20 mg tablet 20 mg PO BEDTIME 07/01/20 03/07/22 06/30/20 History glipizide 5 mg tablet, extended 5 mg PO DAILY 07/01/20 03/07/22 07/01/20 History release 24 hr metformin 500 mg tablet 500 mg PO BID 01/06/21 03/13/22 03/13/22 History cephalexin 500 mg capsule 500 mg PO QID 01/11/22 03/07/22 Unknown History lisinopril 40 mg tablet 40 mg PO DAILY 01/11/22 03/07/22 Unknown History Exam Airway Mallampati Class: III TM Dist: >3cm Neck ROM: Full Denture: Upper Loose/Missing/Broken Teeth: Yes Heart: S1,S2 Lungs: b/l breath sounds Assessment and Plan Assessment Anesthesia Assessment: Anesthesia Plan Discussed Final Anesthetic Review Family History of Problems with Anesthesia: No History of Problems with Anesthesia: No NPO: Yes ASA Class: III Final Preanesthetic Review: Meds/Allgs Chart Reviewed, Consent Obtained/Reviewed and Anes Risks/Benef Reviewed Patient Risk: Intermediate Procedure Risk: Intermediate Anesthetic Plan Anesthetic Plan: GA Disposition: Standard PACU
[2022-03-13 06:23] VITALS: BP 135/54; PULSE 62; RESP 18; TEMP 36.3; O2SAT 97; BMI 23.2
[2022-03-13 06:39] LABS: Glucose, Whole Blood 143 mg/dL (60-115)
[2022-03-13] MEDS: Lactated Ringers 1,000 ML 100 ML IVCONT (07:01)
--- NOTE | 2022-03-13 07:11 | MHC.SHP ---
Pre-Procedural Eval Section A Date of Service: 03/13/22 The patient is an INPATIENT: No Changes since office visit: No Cold of Flu in the past 2 weeks, No New Medical Problems, No Changes in Medication and No Patient answered all questions The History & Physical has been completed within 30 days and I have reviewed it.: Yes Section B Chief Complaint: BPH,neoplasm of bladder Details of Present Illness: superficial bladder cancer, recurent BPH with question lesion on CT Relevant Family History (Specify if Yes): No Relevant Social History: Tobacco Use Present Medications: see Short Stay Collaborative assessment Medical History: No relevant PMH History of Previous Operations: Relevant previous surgery/procedure and date(s) Allergies: Allergies Allergy/AdvReac Type Severity Reaction Status Date / Time No Known Allergies Allergy Verified 03/07/22 11:00 [No Known Allergies*] Review of Systems Sugical H&P ROS: Negative: Constitution, Cardiovascular, Respiratory, Neurological, Psychiatric, Hem-Onc, Allergic/Immunologic, Gastrointestinal, Genitourinary, Musculoskeletal, Integumentary, Endocrine and Eyes/Ears/Nose/Throat Exam Surgical H&P Exam: Normal: HEENT, Normal: Heart, Normal: Lungs, Normal: Extremities, Normal: Abdomen, Normal: Skin and Normal: Neurological Plan Diagnosis/Plan: Unchanged (cysto, redo TURP and left retrograde) I have reviewed the history and physical and performed a pertinent physical examination on my patient. No changes have occurred unless specified.
--- NOTE | 2022-03-13 08:39 | P.OP_ITS ---
Operative Note Operative Note Date of Service: 03/13/22 Narrative: PreOperative Diagnosis: Bladder outlet obstruction, recurrent superficial bladder cancer Post Operative Diagnosis: Bladder outlet obstruction, recurrent Procedure: bladder biopsy, fulguration, left retrograde, Left ureteroscopy,GreenLight Laser Enucleation of the prostate Surgeon: Dr Tarun Fregoso Anesthesia: General Indications for procedure: recurrent BPH. Had urinary retention. Has been on medication. Presents for prostate procedure. Known recurrent superficial bladder cancer. Question of hydronephrosis on left side on prior imaging . History of bladder outlet obstruction. Treated with alpha-apolinar and other medications. Episode of urinary retention despite prior prostate procedure. Procedure: After informed consent was verified the patient was brought to the operating room and placed in a supine position. Anesthesia was administered per protocol. Patient was placed in modified dorsal lithotomy position and prepped and draped in a sterile fashion. Safety pause time-out was confirmed. Antibiotics have been given. A 22 Canadian regular cystoscope was placed per urethra. No abnormalities found on the anterior or posterior urethra. Recurrent bilobar bladder outlet obstruction. The bladder was examined. There were areas of mucosal change around the left ureteric orifice. There was a question of superficial bladder cancer in the left ureteric orifice. left retrograde examination performed. No filling defect seen. Taking a semi rigid ureteral scope this was placed into the left ureteric orifice. There was small amount of superficial bladder cancer right at the o pening of the orifice however this did not continue through the bladder wall. Bladder biopsies were taken of mucosal changes areas that appeared to be consistent with recurrent superficial bladder cancer. We switched to the Twenty-four Canadian laser cystoscope was inserted per urethra. initially using GreenLight laser settings of 40 w with 20 w for fulguration the areas of mucosal change on the left bladder sidewall and around the left ureteric orifice were carefully fulgurated. The small amount of serviceable bladder cancer just at the entrance to the left ureteric orifice was also car efully fulgurated. Changing the GreenLight laser settings to 80 w the recurrent bilateral impinging lobar tissue was removed. We started with the patient's right-hand side. We slowly worked our way from the 7 o'clock position up to the 11 o'clock position. Similar procedure with P did on the left-hand side. When this was completed debris and pieces of prostate removed from the bladder. Both ureteric orifices were reviewed again in shown to be patent in away from any areas of energy damage. The apical area was reviewed in any stray ooze was controlled. A 22 Canadian 30 cc balloon Palmer catheter was placed over stylet into the bladder. Clear efflux was obtained. 30 cc was placed in the balloon and gentle traction was placed. A snap was used to hold tension once the patient will be moved and transported. Once transportation its finish this novel be removed. A belladonna and opiate suppository was placed for postprocedure pain management. He tolerated procedure well was extubated in the operating and transferred in a stable condition to the recovery area. Total Power Fifty-five thousand kW, lase time 12 minutes 49 seconds Pathology: bladder biopsies, low-grade bladder cancer Drains: Palmer catheter
[2022-03-13 08:48] VITALS: BP 89/45; PULSE 74; RESP 12; TEMP 36.7; O2SAT 97
[2022-03-13 08:53] VITALS: BP 97/46; PULSE 67; RESP 12; O2SAT 97
[2022-03-13 08:58] VITALS: BP 99/47; PULSE 68; RESP 14; O2SAT 97
[2022-03-13 09:03] VITALS: BP 115/54; PULSE 68; RESP 14; O2SAT 95
[2022-03-13 09:18] VITALS: BP 125/61; PULSE 71; RESP 18; TEMP 36.1; O2SAT 96
== END 2022-03-13 10:20 | disposition home or self-care (01) ==
PROVIDERS: PCP Internal Medicine; Visit Provider Urology
PROC: (CPT 52648; principal; 2022-03-13 07:30)
DX: N40.1 Benign prostatic hyperplasia with lower urinary tract symptoms (principal); N32.0 Bladder-neck obstruction; R33.8 Other retention of urine; C67.6 Malignant neoplasm of ureteric orifice; D62 Acute posthemorrhagic anemia; I10 Essential (primary) hypertension; I73.9 Peripheral vascular disease, unspecified; E11.9 Type 2 diabetes mellitus without complications; Z79.84 Long term (current) use of oral hypoglycemic drugs; Z79.899 Other long term (current) drug therapy; Z87.440 Personal history of urinary (tract) infections; Z87.891 Personal history of nicotine dependence
CPT/HCPCS: 52648; 52204; 82947; 88305; 88342; J1956; J2370; J2405; J3010; Q9967

== ENCOUNTER → 2022-03-14 09:02 | Outpatient (BNVA) | payer MEDICARE, OTHER, SELFPAY | PROVIDERS: PCP Internal Medicine; Visit Provider Urology | DX: Z46.6 Encounter for fitting and adjustment of urinary device (principal) | CPT/HCPCS: 99212 ==

== ENCOUNTER → 2022-04-25 08:50 | Outpatient (BNVA) | payer MEDICARE, OTHER, SELFPAY | PROVIDERS: PCP Internal Medicine; Visit Provider Urology | DX: C67.4 Malignant neoplasm of posterior wall of bladder (principal); N40.1 Benign prostatic hyperplasia with lower urinary tract symptoms; N13.8 Other obstructive and reflux uropathy | CPT/HCPCS: 51798; 99212 ==

== ENCOUNTER → 2022-06-14 09:49 | Outpatient (BNVA) | payer MEDICARE, OTHER, SELFPAY | PROVIDERS: PCP Internal Medicine; Visit Provider Urology | DX: C67.4 Malignant neoplasm of posterior wall of bladder (principal) | CPT/HCPCS: 52000; 99212 ==

== ENCOUNTER → 2022-06-27 11:24 | Outpatient (BNVA) | payer MEDICARE, OTHER, SELFPAY | PROVIDERS: PCP Internal Medicine; Visit Provider Urology | DX: N32.81 Overactive bladder (principal); R35.1 Nocturia; C67.4 Malignant neoplasm of posterior wall of bladder | CPT/HCPCS: Q3014 ==

== ENCOUNTER → 2022-09-15 11:57 | Outpatient (BNVA) | payer MEDICARE, OTHER, SELFPAY | PROVIDERS: PCP Internal Medicine; Visit Provider Urology | DX: N39.0 Urinary tract infection, site not specified (principal); R39.15 Urgency of urination; Z85.51 Personal history of malignant neoplasm of bladder | CPT/HCPCS: Q3014 ==

== ENCOUNTER 2022-09-18 05:57 | Day surgery (SDC) | payer MEDICARE, OTHER, SELFPAY ==
[2022-09-12 14:05] VITALS: BMI 23.2
--- NOTE | 2022-09-15 08:34 | HO.ANESPROP2 ---
Documented by User: Ora David NP 09/15/22 08:40 HPI - Anesthesia Eval Consult details Narrative: 77yo M for TUR Bladder Tumor, Cystoscopy Bladder Fulguration s/p laser prostate 03/2022 with GA-LMA 4 PMFSH Active Problems Active Problems: All Active Problems (Updated 09/12/22 @ 14:04 by Geovanna Conteh RN) Bladder cancer (Acute) Congestion and hemorrhage of prostate (Acute) Gross hematuria (Acute) BPH w urinary obs/LUTS (Acute) Overactive bladder (Acute) Nocturia more than twice per night (Acute) Past Medical History Medical History Acute blood loss anemia Bladder cancer Bladder tumor Diabetes Elevated cholesterol Employs prosthetic leg Hypertension Peripheral vascular disease Urinary tract infection Family History Family history of problems with anesthesia: No Surgical History Surgical History H/O colonoscopy History of prostate surgery History of transurethral destruction of bladder lesion Hx of below knee amputation History of Problems with Anesthesia: No Social History Social History Household Members: Spouse Housing: House Are you a primary health care facility administrator to a significant other at home: No Do you presently have visiting nurse or other home services: No Alcohol intake: unknown Patient Tobacco Use Status: Former Tobacco user Quit Date: 2017 Tobacco use type: Cigarette Second Hand Smoke Exposure: No service: Yes Current occupational status: retired Meds Allergies Allergy/AdvReac Type Severity Reaction Status Date / Time No Known Allergies Allergy Verified 09/18/22 06:39 [No Known Allergies*] Home Medications Medication Instructions Recorded Confirmed Last Taken Type atorvastatin 20 mg tablet 20 mg PO BEDTIME 07/01/20 09/15/22 06/30/20 History glipizide 5 mg tablet, extended 5 mg PO DAILY 07/01/20 09/15/22 07/01/20 History release 24 hr metformin 500 mg tablet 500 mg PO BID 01/06/21 09/15/22 03/13/22 History lisinopril 40 mg tablet 40 mg PO DAILY 01/11/22 09/15/22 Unknown History Exam Exam Date and Time: September 15, 2022 0834 Height,Weight and Vital Signs: Height 5 ft 10 in Weight 73.482 kg Assessment and Plan Assessment Anesthesia Assessment: Chart Reviewed Final Anesthetic Review Family History of Problems with Anesthesia: No History of Problems with Anesthesia: No Documented by User: Nemesio Poole MD 09/18/22 12:47 [facility] Past Medical History Medical History Acute blood loss anemia Bladder cancer Bladder tumor Diabetes Elevated cholesterol Employs prosthetic leg Hypertension Peripheral vascular disease Urinary tract infection Surgical History Surgical History H/O colonoscopy History of prostate surgery History of transurethral destruction of bladder lesion Hx of below knee amputation History of Problems with Anesthesia: Yes Social History Social History Household Members: Spouse Housing: House Are you a primary health care facility administrator to a significant other at home: No Do you presently have visiting nurse or other home services: No Alcohol intake: unknown Patient Tobacco Use Status: Former Tobacco user Quit Date: 2017 Tobacco use type: Cigarette Second Hand Smoke Exposure: No service: Yes Current occupational status: retired Meds Allergies Allergy/AdvReac Type Severity Reaction Status Date / Time No Known Allergies Allergy Verified 09/18/22 06:39 [No Known Allergies*] Home Medications Medication Instructions Recorded Confirmed Last Taken Type atorvastatin 20 mg tablet 20 mg PO BEDTIME 07/01/20 09/15/22 06/30/20 History glipizide 5 mg tablet, extended 5 mg PO DAILY 07/01/20 09/15/22 07/01/20 History release 24 hr metformin 500 mg tablet 500 mg PO BID 01/06/21 09/15/22 03/13/22 History lisinopril 40 mg tablet 40 mg PO DAILY 01/11/22 09/15/22 Unknown History Exam Airway Mallampati Class: III TM Dist: >3cm Neck ROM: Full Denture: Upper Loose/Missing/Broken Teeth: Yes Heart: S1,S2 Lungs: b/l breath sounds Assessment and Plan Assessment Anesthesia Assessment: Anesthesia Plan Discussed Final Anesthetic Review History of Problems with Anesthesia: Yes NPO: Yes ASA Class: III Final Preanesthetic Review: Meds/Allgs Chart Reviewed, Consent Obtained/Reviewed and Anes Risks/Benef Reviewed Patient Risk: Intermediate Procedure Risk: Intermediate Anesthetic Plan Anesthetic Plan: GA Disposition: Standard PACU
[2022-09-18] VITALS (8 sets, daily range): BP systolic 113–138; BP diastolic 50–63; PULSE 60–73; RESP 16–17; TEMP 36.4–36.6; O2SAT 96–99
[2022-09-18 06:30] LABS: Glucose, Whole Blood 173 mg/dL (60-115)
[2022-09-18] MEDS: Lactated Ringers 1,000 ML 100 ML IVCONT (06:38)
[2022-09-18 06:45] LABS: Hematocrit 34.4 % (42.0-52.0); Hemoglobin 11.4 g/dl (14.0-18.0); Mean Corpuscular HGB Conc 33.1 g/dl (31.0-36.0); Mean Corpuscular Volume 93.5 fL (80.0-98.0); Mean Platelet Volume 9.3 fL (9.4-12.4); Platelet Count 232 X10*3/uL (160-400); Red Blood Count 3.68 X10*6/uL (4.60-5.80); Red Cell Distribution Width 14.6 % (11.0-16.0); White Blood Count 6.2 X10*3/uL (4.8-10.8)
[2022-09-18 06:59] LABS: Anion Gap 13 (12-20); Blood Urea Nitrogen 19 mg/dL (9-16); Calcium 8.9 mg/dL (8.4-10.2); Carbon Dioxide 24 mmol/L (22-29); Chloride 104 mmol/L (96-108); Creatinine Clr Calc Pharmacy 63.9; Estimated Glomerular Filt Rate > 60; Glucose Fasting 207 mg/dL (60-99); Potassium 4.4 mmol/L (3.3-5.1); Sodium 137 mmol/L (135-145)
--- NOTE | 2022-09-18 07:32 | MHC.SHP ---
Pre-Procedural Eval Section A Date of Service: 09/18/22 The patient is an INPATIENT: No Changes since office visit: No Cold of Flu in the past 2 weeks, No New Medical Problems, No Changes in Medication and No Patient answered all questions The History & Physical has been completed within 30 days and I have reviewed it.: Yes Section B Chief Complaint: Malignant neoplasm of bladder, unspecified Allergies: Allergies Allergy/AdvReac Type Severity Reaction Status Date / Time No Known Allergies Allergy Verified 09/18/22 06:39 [No Known Allergies*] Review of Systems Sugical H&P ROS: Negative: Constitution, Cardiovascular, Respiratory, Neurological, Psychiatric, Hem-Onc, Allergic/Immunologic, Gastrointestinal, Genitourinary, Musculoskeletal, Integumentary, Endocrine and Eyes/Ears/Nose/Throat Exam Surgical H&P Exam: Normal: HEENT, Normal: Heart, Normal: Lungs, Normal: Extremities, Normal: Abdomen, Normal: Skin and Normal: Neurological Plan Diagnosis/Plan: Unchanged (cysto bladder biopsy) I have reviewed the history and physical and performed a pertinent physical examination on my patient. No changes have occurred unless specified. Time Spent With Patient Time: Total time managing care of this patient today ____ minutes.
--- NOTE | 2023-02-08 14:57 | W.PM.OPN ---
Operative Note Operative Note Date of Service: 09/18/22 Narrative: PreOperative Diagnosis: Recurrent superficial bladder cancer Post Operative Diagnosis: Recurrent superficial bladder cancer Procedure: cystoscopy, bladder biopsy, fulguration Surgeon: Dr Tarun Fregoso Anesthesia: LMA Indications for procedure: Cystoscopy in office with mucosal changes. Prior superficial bladder cancer. Plan for bladder biopsy with fulguration Procedure: After informed consent was verified the patient was brought to the operating room and placed in a supine position. Anesthesia was administered per protocol. The patient was placed in modified dorsal lithotomy position and prepped and draped in a sterile fashion. Safety pause time-out was performed. Antibiotics being given. Cystoscopy was performed. Area on right side of mucosal change seen. Area biopsied. Biopsied area +1 cm surround was fulgurated. Other areas of small mucosal change within the bladder were fulgurated. The patient tolerated the procedure well. They were extubated in operating room and transferred in stable conditions recovery area. Pathology: Bladder biopsies Drains: None
== END 2022-09-18 10:05 | disposition home or self-care (01) ==
PROVIDERS: Nurse Practitioner; PCP Internal Medicine; Visit Provider Urology
PROC: 0TBB8ZZ Excision of Bladder, Via Natural or Artificial Opening Endoscopic (ICD-10-PCS; CPT 52234; principal; 2022-09-18 07:30)
PROC: 0T5B8ZZ Destruction of Bladder, Via Natural or Artificial Opening Endoscopic (ICD-10-PCS; CPT 52234; 2022-09-18 07:30)
DX: C67.4 Malignant neoplasm of posterior wall of bladder (principal); N30.20 Other chronic cystitis without hematuria; N32.81 Overactive bladder; N40.1 Benign prostatic hyperplasia with lower urinary tract symptoms; R35.1 Nocturia; R31.0 Gross hematuria; E11.9 Type 2 diabetes mellitus without complications; I10 Essential (primary) hypertension; I73.9 Peripheral vascular disease, unspecified; Z89.511 Acquired absence of right leg below knee; Z79.899 Other long term (current) drug therapy; Z79.84 Long term (current) use of oral hypoglycemic drugs; Z87.891 Personal history of nicotine dependence
CPT/HCPCS: 52234; 36415; 80048; 82947; 85027; 88305; 88307; J0131; J2370; J2405; J3010

== ENCOUNTER → 2022-09-28 10:46 | Outpatient (BNVA) | payer MEDICARE, OTHER, SELFPAY | PROVIDERS: PCP Internal Medicine; Visit Provider Urology | DX: N40.1 Benign prostatic hyperplasia with lower urinary tract symptoms (principal); N13.8 Other obstructive and reflux uropathy; N32.81 Overactive bladder; C67.4 Malignant neoplasm of posterior wall of bladder | CPT/HCPCS: Q3014 ==

== ENCOUNTER → 2022-12-28 10:50 | Outpatient (BNVA) | payer MEDICARE, OTHER, SELFPAY | PROVIDERS: PCP Internal Medicine; Visit Provider Urology | DX: C67.4 Malignant neoplasm of posterior wall of bladder (principal); Z79.899 Other long term (current) drug therapy | CPT/HCPCS: 52000 ==

== ENCOUNTER 2023-04-10 08:55 | Outpatient (AMB) | payer MEDICARE, OTHER, SELFPAY ==
--- NOTE | 2023-04-10 09:06 | MHC.OFFVIS ---
Intake Intake Visit Reasons: cysto Intake Note: Patient is present for Cystoscopy Urology Med: Patient states that he is no longer taking Tolterodine Antibiotic Allergy: None Blood Thinner: None Disoposable Cystoscope LOT: [id number] EXP: 03/16/25 Allergies No Known Allergies [No Known Allergies*] Allergy (Verified 04/10/23 09:07) Medication List - Last Reconciled 04/10/23 by Tarun Fregoso MD atorvastatin 20 mg PO BEDTIME glipizide ER 5 mg PO DAILY latanoprost 0.005% 0 drps ophthalmic (eye) lisinopril 40 mg PO DAILY metformin 500 mg PO BID tolterodine ER 2 mg PO DAILY 30 days HPI HPI Comments History of Present Illness Details Lucas is a pleasant male. He is a patient of Dr. Belle. He is seen for the following urologic condition - bladder cancer superficial high-grade - lower urinary tract symptoms - detrusor hyperactivity with impaired contractility Diagnosis treatment has been discussed with his son Kirill - [phone] Recurrent superficial high-grade bladder cancer Recommend TURBT with mitomycin Has incomplete bladder emptying with background of diabetes Bladder cancer Superficial High-Grade recurrent Last recurrence 03/22 Initial diagnosis 2016 Prior procedure 07/20 cystoscopy with fulguration Cystoscopy - 07/21 irritated bladder, fulguration areas, - 03/22 left ureteric orifice superficial high-grade - 06/22 healed prostate - 09/21 cysto with bladder biopsy shows chronic inflammation, no evidence disease Imaging CT 07/21 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 Ex Smoker - 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 Intravesicle therapy - Gemcitabine induction 6 week 04/21, 08/22 3 week boost Lower urinary tract symptoms Has urinary urgency Prior medication finasteride, terazosin Prior procedure TURP, GreenLight laser prostate 03/22 PSA 06/21 0.7 Background diabetes PFSH Medical History Acute blood loss anemia Bladder cancer Bladder tumor Diabetes Elevated cholesterol Employs prosthetic leg Hypertension Peripheral vascular disease Urinary tract infection Surgical History H/O colonoscopy History of prostate surgery History of transurethral destruction of bladder lesion Hx of below knee amputation Social History Household Members: Spouse Housing: House Are you a primary patient centered care specialist to a significant other at home: No Do you presently have visiting nurse or other home services: No Alcohol intake: unknown Patient Tobacco Use Status: Former Tobacco user Quit Date: 2017 Tobacco use type: Cigarette Second Hand Smoke Exposure: No service: Yes Current occupational status: retired Review of Systems Const Denies chills and Denies fever(s) Card Reports no additional complaints and Denies syncope Resp Denies cough GI Denies abdominal pain and Denies heartburn Reports as per HPI and Denies change in libido Neuro Denies syncope Psych Denies change in libido Endo Denies change in libido Physical Exam Const General: cooperative, healthy appearing, comfortable and no acute distress Orientation/consciousness: patient oriented x3 HEENT Face and sinus: Yes normal facial exam Mouth: moist mucous membranes Neck Neck: Yes normal visual inspection, Yes full ROM and Yes trachea midline Chest Chest palpation & inspection: normal inspection of the chest Resp Effort & Inspection: normal respiratory effort, able to speak in complete sentences and no respiratory distress GI Inspection: Yes normal to inspection Back/Spine/Pelvis Cervical Spine: normal cervical lordosis Thoracic/Lumbar Spine: thoracic and lumbar spine normal to inspection Skin General skin exam: no rashes or lesions noted Neuro General: patient oriented x3, gait normal, tone normal and moves all extremities Extrem General: Yes normal to inspection and Yes capillary refill normal Office Procedures Cystoscopy Consent Discussed risk and benefit or proposed procedure with the patient. Information consent for procedure given to the patient. Discussed technical aspects, risks, benefits and alternatives in full. Addressed all of the patient's questions and concerns regarding the procedure. The patient demonstrated knowledge and understanding. They wish to proceed with this procedure. Preparation The patient was prepped in the usual manner. A dental services director was present and in the room. Genitalia was prepped with betadine solution in a sterile manner. Lidocaine Jelly 2% was placed into the urethra and 16Fr flexible Olympus cystoscope was inserted into the meatus after adequate lubrication. Procedure Meatus circumcised Urethra anterior posterior urethra normal Prostatic Urethra TURP defect Bladder examination with retroflexion of cystoscope Bladder Orifices normal shape and position Bladder Capacity large Trabeculations moderate Cellule Formation - Diverticulum Formation - Mucosal Erythema - Bladder Tumor left 2 cm high-grade superficial [id number] Procedure code (CPT) selection complete Office Meds lidocaine HCl Performing Provider: Tarun Fregoso MD Administered by: Lexi Johnson RN on 04/10/23 09:30 Dose Route Admin Location Lot Number Expiration Date NDC Entry Level Lab Technician 10 mL intra-urethral nitrofurantoin monohyd/m-cryst 100 mg Performing Provider: Tarun Fregoso MD Administered by: Lexi Johnson RN on 04/10/23 09:30 Dose Route Admin Location Lot Number Expiration Date NDC Entry Level Lab Technician 100 mg PO Assessment & Plan Assessment & Plan (1) Bladder cancer: Comment: Superficial low-grade recurrence initial 2015, superficial high-grade 03/22 Code(s): C67.9 - Malignant neoplasm of bladder, unspecified Qualifiers: Bladder location: posterior wall Qualified Code(s): C67.4 - Malignant neoplasm of posterior wall of bladder Plan Risks, benefits and alternatives to therapy were discussed. These include but are not limited to infection, bleeding, damage to local organs and tissues, need for further interventions. Anesthetic risks regarding cardiac arrhythmia, blood clots, and potential mortality were discussed. The patient understands the typical recovery time and the outpatient nature of the procedure. After consideration of these risks the patient gives full informed consent and they wish to move ahead with the procedure. TURBT with mitomycin-C Orders: Orders AMB Cystoscopy Today C67.9 - Malignant neoplasm of bladder, unspecified Patient Instructions: Imaging studies, laboratory and physical exam results were discussed and reviewed in detail. No major barriers to patient understanding were identified. An opportunity to ask questions regarding the treatment plan was provided. All questions were answered. The patient expressed understanding and agreement with the above treatment plan. The patient is aware they should contact our office by phone for worsening of their current condition or the appearance of new urologic symptoms. Compliance is encouraged with any medications and followup testing that is ordered. It is a privilege to participate in the urologic care of your patient. If you have any questions or concerns regarding treatment for the above conditions, or other urologic issues, please do not hesitate to contact me. The office telephone contact is [phone]. This note is constructed using voice recognition software. While every effort has been made to ensure accuracy hat brusher machine errors may have been included. Yours sincerely, Dr Tarun Fregoso MD, [facility] - Urology Providers of Expert, Compassionate Care for the Genitourinary System Coding Level of Care Code Est Pt Level 4 (73595) Diagnoses Bladder cancer C67.4 Bladder location: posterior wall CPT Codes Cystoscopy - CPT: [id number] ([id number])
== END 2023-04-10 10:08 | disposition home or self-care (01) ==
PROVIDERS: Visit Provider Urology
DX: C67.4 Malignant neoplasm of posterior wall of bladder (principal)
CPT/HCPCS: 52000; 99214

== ENCOUNTER → 2023-04-10 08:55 | Outpatient (BNVA) | payer MEDICARE, OTHER, SELFPAY | PROVIDERS: Visit Provider Urology | DX: C67.4 Malignant neoplasm of posterior wall of bladder (principal) | CPT/HCPCS: 52000; 99212 ==

== ENCOUNTER 2023-05-15 08:32 | Outpatient (AMB) | payer MEDICARE, OTHER, SELFPAY ==
--- NOTE | 2023-05-15 08:38 | MHC.OFFVIS ---
Intake Intake Visit Reasons: surgery questions Intake Note: Patient is present for Telephone to discuss surgery questions Urology Med: Tolterodine Antibiotic Allergy: None Blood Thinner: None Pharmacy: [facility] Allergies No Known Allergies [No Known Allergies*] Allergy (Verified 05/15/23 08:40) HPI HPI Comments History of Present Illness Details Lucas is a pleasant male. He is a patient of Dr. Belle. He is seen for the following urologic condition - bladder cancer superficial high-grade - lower urinary tract symptoms - detrusor hyperactivity with impaired contractility Telemedicine Evaluation 15 min Consultation [employer] Radha Video attempted Son Kirill - [phone] Recurrent superficial high-grade bladder cancer Recommend TURBT with mitomycin Has incomplete bladder emptying with background of diabetes Bladder cancer Superficial High-Grade recurrent Last recurrence 03/22 Initial diagnosis 2016 Prior procedure 07/20 cystoscopy with fulguration Cystoscopy - 07/21 irritated bladder, fulguration areas, - 03/22 left ureteric orifice superficial high-grade - 06/22 healed prostate - 09/21 cysto with bladder biopsy shows chronic inflammation, no evidence disease Imaging CT 07/21 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 Ex Smoker - 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 Intravesicle therapy - Gemcitabine induction 6 week 04/21, 08/22 3 week boost Lower urinary tract symptoms Has urinary urgency Prior medication finasteride, terazosin Prior procedure TURP, GreenLight laser prostate 03/22 PSA 06/21 0.7 Background diabetes PFSH Medical History Acute blood loss anemia Bladder cancer Bladder tumor Diabetes Elevated cholesterol Employs prosthetic leg Hypertension Peripheral vascular disease Urinary tract infection Surgical History H/O colonoscopy History of prostate surgery History of transurethral destruction of bladder lesion Hx of below knee amputation Social History Household Members: Spouse Housing: House Are you a primary family day care worker to a significant other at home: No Do you presently have visiting nurse or other home services: No Alcohol intake: unknown Patient Tobacco Use Status: Former Tobacco user Quit Date: 2017 Tobacco use type: Cigarette Second Hand Smoke Exposure: No service: Yes Current occupational status: retired Review of Systems Const All systems reviewed & are unremarkable except as noted in HPI and below Reports no additional complaints Resp Reports no additional complaints GI Reports no additional complaints Reports as per HPI Musc Reports no additional complaints Physical Exam Telemedicine evaluation Appropriate responses Regular breathing rate and rhythm HEENT Head: Yes normal to inspection Ears: hearing grossly normal bilaterally Eyes General: appearance normal, both eyes and all related structures Neck Neck: Yes normal visual inspection Chest Chest palpation & inspection: normal inspection of the chest Resp Effort & Inspection: normal respiratory effort and able to speak in complete sentences Assessment & Plan Assessment & Plan (1) Bladder cancer: Comment: Superficial low-grade recurrence initial 2015, superficial high-grade 03/22 Code(s): C67.9 - Malignant neoplasm of bladder, unspecified Qualifiers: Bladder location: posterior wall Qualified Code(s): C67.4 - Malignant neoplasm of posterior wall of bladder Plan TURBT with mitomycin-C Patient Instructions: Imaging studies, laboratory and physical exam results were discussed and reviewed in detail. No major barriers to patient understanding were identified. An opportunity to ask questions regarding the treatment plan was provided. All questions were answered. The patient expressed understanding and agreement with the above treatment plan. The patient is aware they should contact our office by phone for worsening of their current condition or the appearance of new urologic symptoms. Compliance is encouraged with any medications and followup testing that is ordered. It is a privilege to participate in the urologic care of your patient. If you have any questions or concerns regarding treatment for the above conditions, or other urologic issues, please do not hesitate to contact me. The office telephone contact is [phone]. This note is constructed using voice recognition software. While every effort has been made to ensure accuracy fruit thinner errors may have been included. Yours sincerely, Dr Tarun Fregoso MD, [facility] - Urology Providers of Expert, Compassionate Care for the Genitourinary System Telehealth Telehealth Location of provider rendering services: practice address Location of patient: address on file Patient Identification confirmed using: Name, : Yes Telehealth method: video Patient verbally consented to treatment: Yes Patient verbally consented to billing insurance company: Yes Patient informed of any privacy concerns related to visit: Yes Coding Level of Care Code Tele Est Pt Level 3 (52051) Diagnoses Bladder cancer C67.4 Bladder location: posterior wall
== END 2023-05-15 11:07 | disposition home or self-care (01) ==
LOC: HO.HUSH 08:32
PROVIDERS: PCP Internal Medicine; Visit Provider Urology
DX: C67.4 Malignant neoplasm of posterior wall of bladder (principal)
CPT/HCPCS: 99213

== ENCOUNTER → 2023-05-15 08:32 | Outpatient (BNVA) | payer MEDICARE, OTHER, SELFPAY | PROVIDERS: PCP Internal Medicine; Visit Provider Urology | DX: C67.4 Malignant neoplasm of posterior wall of bladder (principal) | CPT/HCPCS: Q3014 ==

== ENCOUNTER 2023-05-28 12:17 | Day surgery (SDC) | payer MEDICARE, OTHER, SELFPAY ==
[2023-05-24 11:12] VITALS: BMI 23.2
--- NOTE | 2023-05-25 13:25 | HO.ANESPROP2 ---
Documented by User: Ora David NP 05/25/23 13:27 HPI - Anesthesia Eval Consult details Narrative: 78yo M for TUR Bladder Tumor w/ mitomycin s/p same 08/2022 with GA-LMA 5 PMFSH Active Problems Active Problems: All Active Problems (Updated 09/15/22 @ 12:49 by Tarun Fregoso MD) Chronic UTI (urinary tract infection) (Acute) Bladder cancer (Acute) Congestion and hemorrhage of prostate (Acute) Gross hematuria (Acute) BPH w urinary obs/LUTS (Acute) Overactive bladder (Acute) Nocturia more than twice per night (Acute) Past Medical History Medical History Acute blood loss anemia Bladder cancer Bladder tumor Diabetes Elevated cholesterol Employs prosthetic leg Hypertension Peripheral vascular disease Urinary tract infection Family History Family history of problems with anesthesia: No Surgical History Surgical History H/O colonoscopy History of prostate surgery History of transurethral destruction of bladder lesion Hx of below knee amputation History of Problems with Anesthesia: Yes Social History Social History Household Members: Spouse Housing: House Are you a primary patient care technician instructor to a significant other at home: No Do you presently have visiting nurse or other home services: No Alcohol intake: unknown Patient Tobacco Use Status: Former Tobacco user Quit Date: 2017 Tobacco use type: Cigarette Second Hand Smoke Exposure: No Use of substances other than those prescribed or required for medical reasons: No Advance Directives: No Advance Directives Information Provided: Yes service: Yes Current occupational status: retired [employer] Allergies Allergy/AdvReac Type Severity Reaction Status Date / Time No Known Allergies Allergy Verified 05/24/23 11:33 [No Known Allergies*] Home Medications Medication Instructions Recorded Confirmed Last Taken Type atorvastatin 20 mg tablet 20 mg PO BEDTIME 07/01/20 05/24/23 06/30/20 History glipizide 5 mg tablet, extended 5 mg PO DAILY 07/01/20 05/24/23 07/01/20 History release 24 hr lisinopril 40 mg tablet 40 mg PO DAILY 01/11/22 05/24/23 Unknown History latanoprost 0.005 % eye drops 1 drp ophthalmic (eye) DAILY 09/28/22 05/24/23 Unknown History metformin 1,000 mg tablet 1,000 mg PO BID 05/15/23 05/24/23 Unknown History Exam Exam Date and Time: May 25, 2023 1325 Height,Weight and Vital Signs: Height 5 ft 10 in Weight 73.4 kg Assessment and Plan Assessment Anesthesia Assessment: Chart Reviewed Final Anesthetic Review Family History of Problems with Anesthesia: No History of Problems with Anesthesia: Yes Documented by User: Blayne Tatum MD 05/28/23 14:47 PMF Past Medical History Medical History Acute blood loss anemia Bladder cancer Bladder tumor Diabetes Elevated cholesterol Employs prosthetic leg Hypertension Peripheral vascular disease Urinary tract infection Family History Family history of problems with anesthesia: No Surgical History Surgical History H/O colonoscopy History of prostate surgery History of transurethral destruction of bladder lesion Hx of below knee amputation History of Problems with Anesthesia: No Social History Social History Household Members: Spouse Housing: House Are you a primary patient care technician instructor to a significant other at home: No Do you presently have visiting nurse or other home services: No Alcohol intake: unknown Patient Tobacco Use Status: Former Tobacco user Quit Date: 2017 Tobacco use type: Cigarette Second Hand Smoke Exposure: No Use of substances other than those prescribed or required for medical reasons: No Advance Directives: No Advance Directives Information Provided: Yes service: Yes Current occupational status: retired Meds Allergies Allergy/AdvReac Type Severity Reaction Status Date / Time No Known Allergies Allergy Verified 05/24/23 11:33 [No Known Allergies*] Home Medications Medication Instructions Recorded Confirmed Last Taken Type atorvastatin 20 mg tablet 20 mg PO BEDTIME 07/01/20 05/24/23 06/30/20 History glipizide 5 mg tablet, extended 5 mg PO DAILY 10/01/20 08/24/23 10/01/20 History release 24 hr lisinopril 40 mg tablet 40 mg PO DAILY 01/11/22 05/24/23 Unknown History latanoprost 0.005 % eye drops 1 drp ophthalmic (eye) DAILY 09/28/22 05/24/23 Unknown History metformin 1,000 mg tablet 1,000 mg PO BID 05/15/23 05/24/23 Unknown History Exam Airway Mallampati Class: I TM Dist: >3cm Neck ROM: Full Denture: Upper Loose/Missing/Broken Teeth: Yes Heart: ok Lungs: ok Assessment and Plan Final Anesthetic Review Family History of Problems with Anesthesia: No History of Problems with Anesthesia: No NPO: Yes ASA Class: III Final Preanesthetic Review: No Changes in Pt Med Stat, Meds/Allgs Chart Reviewed, Consent Obtained/Reviewed and Anes Risks/Benef Reviewed Patient Risk: Intermediate Procedure Risk: Low Anesthetic Plan Anesthetic Plan: GA and Agree w/ Assess. and Plan Disposition: Standard PACU
[2023-05-28] VITALS (13 sets, daily range): BP systolic 112–154; BP diastolic 59–85; PULSE 53–72; RESP 14–18; TEMP 36.1–36.3; O2SAT 94–98; BMI 23.2
[2023-05-28 13:20] LABS: Glucose, Whole Blood 110 mg/dL (60-115)
--- NOTE | 2023-05-28 14:03 | MHC.SHP ---
Pre-Procedural Eval Section A Date of Service: 05/28/23 The patient is an INPATIENT: No Changes since office visit: No Cold of Flu in the past 2 weeks, No New Medical Problems, No Changes in Medication and No Patient answered all questions The History & Physical has been completed within 30 days and I have reviewed it.: Yes Section B Chief Complaint: Malignant neoplasm of bladder, unspecified Details of Present Illness: Recurrent superficial bladder cancer Allergies: Allergies Allergy/AdvReac Type Severity Reaction Status Date / Time No Known Allergies Allergy Verified 05/24/23 11:33 [No Known Allergies*] Review of Systems Sugical H&P ROS: Negative: Constitution, Cardiovascular, Respiratory, Neurological, Psychiatric, Hem-Onc, Allergic/Immunologic, Gastrointestinal, Genitourinary, Musculoskeletal, Integumentary, Endocrine and Eyes/Ears/Nose/Throat Exam Surgical H&P Exam: Normal: HEENT, Normal: Heart, Normal: Lungs, Normal: Extremities, Normal: Abdomen, Normal: Skin and Normal: Neurological Plan Diagnosis/Plan: Unchanged (TURBT with mitomycin C) I have reviewed the history and physical and performed a pertinent physical examination on my patient. No changes have occurred unless specified. Time Spent With Patient Time: Total time managing care of this patient today ____ minutes.
[2023-05-28 15:42] LABS: Glucose, Whole Blood 109 mg/dL (60-115)
--- NOTE | 2023-05-28 15:46 | P.OP_ITS ---
Operative Note Operative Note Date of Service: 05/28/23 Narrative: PreOperative Diagnosis: bladder cancer Post Operative Diagnosis: bladder cancer Procedure: TURBT- large and mitomycin-C Surgeon: Dr Tarun Fregoso Anesthesia: general Indications for procedure: recurrence superficial bladder cancer throughout right bladder sidewall in office cystoscopy Procedure: After informed consent was verified the patient was brought to the operating room and placed in a supine position. Anesthesia was administered per protocol. The patient was placed in a modified dorsal lithotomy position and prepped and draped in a sterile fashion. Safety pause time-out was performed. Antibiotics were confirmed. A 26 [place] Islander continuous flow resectoscope was inserted per urethra. The visual obturator was used in order to minimize potential for urethral damage. large area are approximately 5 cm x 5 cm on right side wall was fulgurated. Area on posterior wall fulgurated. Use of narrow band imaging in order to fully define area. Fulguration performed using loop of electrode. At the completion of the procedure the bladder was irrigated. The cystoscope was removed. A [address] Palmer catheter was inserted into the bladder. 10 cc was placed in the balloon. 40 mg mitomycin-C was instilled into the bladder. The flow from the catheter was left clamped. The inflow to the catheter was attached to a 3 L normal saline bag. The patient tolerated the procedure well. They were extubated in the operating room and transferred in stable condition to the recovery area. mitomycin-C will remain in the bladder for 1 hour. At the completion of 1 hour the clamp will be removed. The mitomycin-C will be allowed to egress to the urine collection bag. The 3 L bag of normal saline will be run at maximum rate through the bladder in order to dilute any residual mitomycin-C. The Palmer catheter will then be removed. Pathology: - Drains: Palmer catheter
== END 2023-05-28 17:59 | disposition home or self-care (01) ==
PROVIDERS: PCP Internal Medicine; Visit Provider Urology
PROC: 0TBB8ZZ Excision of Bladder, Via Natural or Artificial Opening Endoscopic (ICD-10-PCS; CPT 52240; principal; 2023-05-28 14:10)
DX: C67.4 Malignant neoplasm of posterior wall of bladder (principal); R33.9 Retention of urine, unspecified; E11.9 Type 2 diabetes mellitus without complications; E78.00 Pure hypercholesterolemia, unspecified; Z79.84 Long term (current) use of oral hypoglycemic drugs; Z79.899 Other long term (current) drug therapy; Z89.511 Acquired absence of right leg below knee; Z87.891 Personal history of nicotine dependence
CPT/HCPCS: 52240; 51720; 82947; J1956; J3010; J9280

== ENCOUNTER → 2023-05-28 12:17 | Outpatient (BNV) | payer MEDICARE, OTHER, SELFPAY | PROVIDERS: PCP Internal Medicine; Visit Provider Urology | DX: C67.8 Malignant neoplasm of overlapping sites of bladder (principal) | CPT/HCPCS: 52240 ==

== ENCOUNTER 2023-06-12 11:31 | Outpatient (AMB) | payer MEDICARE, OTHER, SELFPAY ==
--- NOTE | 2023-06-12 11:33 | A.OFFVIS_ITS ---
Intake Intake Visit Reasons: 2 week post (TURBT) caty Intake Note: Patient is present for Telephone POST OP Urology Med: Tolterodine Antibiotic Allergy: None Blood Thinner: None Pharmacy: [facility] Allergies No Known Allergies [No Known Allergies*] Allergy (Verified 06/12/23 11:35) HPI HPI Comments History of Present Illness Details Lucas is a pleasant male. He is a patient of Dr. Belle. He is seen for the following urologic condition - bladder cancer superficial high-grade - lower urinary tract symptoms - detruso r hyperactivity with impaired contractility Telemedicine Evaluation 15 min Consultation [employer] Radha Video attempted Son Kirill - [phone] Recurrent superficial high-grade bladder cancer Discussed findings Needs reinduction of bladder therapy Has incomplete bladder emptying with background of diabetes Bladder cancer Superficial High-Grade recurrent Last recurrence 03/22 Initial diagnosis 2016 Prior procedure 07/20 cystoscopy with fulguration Cystoscopy - 07/21 irritated bladder, fulguration a reas, - 03/22 left ureteric orifice superficial high-grade - 06/22 healed prostate - 09/21 cysto with bladder biopsy shows chronic inflammation, no evidence disease Imaging CT 07/21 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 Smoker - 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 Intravesicle therapy - Gemcitabine induction 6 week 04/21, 08/22 3 week boost - 05/23 repeat induction mitomycin-C with cytarabine Lower urinary tract symptoms Has urinary urgency Prior medication finasteride, terazosin Prior procedure TURP, GreenLight laser prostate 03/22 PSA 06/21 0.7 Background diabetes PFSH Medical History Employs prosthetic leg Elevated cholesterol Bladder tumor Urinary tract infection Acute blood loss anemia Hypertension Peripheral vascular disease Diabetes Bladder cancer Surgical History H/O colonoscopy Hx of below knee amputation History of prostate surgery History of transurethral destruction of bladder lesion Social History Household Members: Spouse Housing: House Are you a primary career professional to a significant other at home: No Do you presently have visiting nurse or other home services: No Alcohol intake: unknown Patient Tobacco Use Status: Former Tobacco user Quit Date: 2017 Tobacco use type: Cigarette Second Hand Smoke Exposure: No service: Yes Current occupational status: retired Review of Systems Const All systems reviewed & are unremarkable except as noted in HPI and below Reports no additional complaints Resp Reports no additional complaints GI Reports no additional complaints Reports as per HPI Musc Reports no additional complaints Physical Exam Telemedicine evaluation Appropriate responses Regular breathing rate and rhythm HEENT Head: Yes normal to inspection Ears: hearing grossly normal bilaterally Eyes General: appearance normal, both eyes and all related structures Neck Neck: Yes normal visual inspection Chest Chest palpation & inspection: normal inspection of the chest Resp Effort & Inspection: normal respiratory effort and able to speak in complete sentences Assessment & Plan Assessment & Plan (1) Bladder cancer: Comment: Superficial low-grade recurrence initial 2015, superficial high-grade 03/22, recurrent 05/23 Code(s): C67.9 - Malignant neoplasm of bladder, unspecified Qualifiers: Bladder location: posterior wall Qualified Code(s): C67.4 - Malignant neoplasm of posterior wall of bladder Plan Bladder immunotherapy Bladder immuno/chemotherapy was discussed today. These medications are used to create an immune reaction against bladder cancer. The intention is to destroy any tumor cells left on the bladder surface. Since BCG and gemcitabine involved immunostimulation they are not indicated in situations where there is immune weakness. Medications are placed directly into the bladder. It should be held for one to 2 hours. The toilet should be disinfected with a cap full of household bleach prior to urination. Side effects from BCG and gemcitabine generally include mucosa-related changes such as urinary urgency and/or frequency, and hematuria BCG may also invoke an infection type response. An elevated temperature may be indicative of more serious issues and should be reported to the Dr. The intention with bladder immunotherapy is to reduce the frequency of bladder cancer recurrence by 50%. Multiple protocols are available - MMC plus Cytarabine for alkalinization - 40mg/200mg in 40mg Will undergo - MMC and Cytarabine 6 week reinduction Patient Instructions: Imaging studies, laboratory and physical exam results were discussed and reviewed in detail. No major barriers to patient understanding were identified. An opportunity to ask questions regarding the treatment plan was provided. All questions were answered. The patient expressed understanding and agreement with the above treatment plan. The patient is aware they should contact our office by phone for worsening of their current condition or the appearance of new urologic symptoms. Compliance is encouraged with any medications and followup testing that is ordered. It is a privilege to participate in the urologic care of your patient. If you biggs ve any questions or concerns regarding treatment for the above conditions, or other urologic issues, please do not hesitate to contact me. The office telephone contact is [phone]. This note is constructed using voice recognition software. While every effort has been made to ensure accuracy psychiatry resident errors may have been included. Yours sincerely, Dr Tarun Fregoso MD, KEVIN [facility] - Urology Providers of Expert, Compassionate Care for the Genitourinary System Telehealth Telehealth Location of provider rendering services: practice address Location of patient: address on file Patient Identification confirmed using: Name, : Yes Telehealth method: video Patient verbally consented to treatment: Yes Patient verbally consented to billing insurance company: Yes Patient informed of any privacy concerns related to visit: Yes Coding Level of Care Code Tele Est Pt Level 4 (02404) Diagnoses Malignant neoplasm of posterior wall of urinary bladder C67.4 Bladder location: posterior wall
== END 2023-06-12 11:56 | disposition home or self-care (01) ==
LOC: HO.HUSH 11:31
PROVIDERS: PCP Internal Medicine; Visit Provider Urology
DX: C67.4 Malignant neoplasm of posterior wall of bladder (principal)
CPT/HCPCS: 99214

== ENCOUNTER → 2023-06-12 11:31 | Outpatient (BNVA) | payer MEDICARE, OTHER, SELFPAY | PROVIDERS: PCP Internal Medicine; Visit Provider Urology ==

== ENCOUNTER 2023-12-26 09:50 | Outpatient (AMB) | payer MEDICARE, OTHER, SELFPAY ==
--- NOTE | 2023-12-26 10:05 | MHC.OFFVIS ---
Intake Intake Visit Reasons: cysto(Confirmed) Intake Note: Patient presents today for a Cystoscopy Meds: None Allergies to Antibiotic: No Known Allergies Blood Thinner: None Urinalysis test clear for Cysto? Patient was unable to provide urine sample today. Patient stated he is not taking Tolterodine Disposable Uro-G Cystoscope Cannula: Exp: 07/26/2026 Lot: [id number] Sports Development Officer Required: No Accompanied by: Self / Same As Patient Allergies No Known Allergies [No Known Allergies*] Allergy (Verified 12/26/23 10:13) HPI HPI Comments History of Present Illness Details Lucas is a pleasant male. He is a patient of Dr. Belle. He is seen for the following urologic condition - bladder cancer superficial high-grade - lower urinary tract symptoms - detrusor hyperactivity with impaired contractility Son Kirill - [phone] Underwent cystoscopy No evidence of recurrence Plan three-week boost immunotherapy Three-month follow-up cystoscopy Bladder cancer Superficial High-Grade recurrent Last recurrence 03/22 Initial diagnosis 2016 Prior procedure 07/20 cystoscopy with fulguration Cystoscopy - 07/21 irritated bladder, fulguration areas, - 03/22 left ureteric orifice superficial high-grade - 06/22 healed prostate - 09/21 cysto with bladder biopsy shows chronic inflammation, no evidence disease - 05/23 TURBT superficial recurrence Imaging CT 07/21 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 Smoker - 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 Intravesicle therapy - Gemcitabine induction 6 week 04/21, 08/22 3 week boost - 05/23 repeat induction mitomycin-C with cytarabine Lower urinary tract symptoms Has urinary urgency Prior medication finasteride, terazosin Prior procedure TURP, GreenLight laser prostate 03/22 PSA 06/21 0.7 Background diabetes PFSH Medical History Employs prosthetic leg Elevated cholesterol Bladder tumor Urinary tract infection Acute blood loss anemia Hypertension Peripheral vascular disease Diabetes Bladder cancer Surgical History H/O colonoscopy Hx of below knee amputation History of prostate surgery History of transurethral destruction of bladder lesion Social History Household Members: Spouse Housing: House Are you a primary child care lead teacher to a significant other at home: No Do you presently have visiting nurse or other home services: No Alcohol intake: unknown Comment: Sleeping Patient Tobacco Use Status: Former Tobacco user Quit Date: 2017 Tobacco use type: Cigarette Second Hand Smoke Exposure: No service: Yes Current occupational status: retired Review of Systems Const Denies chills and Denies fever(s) Card Reports no additional complaints and Denies syncope Resp Denies cough GI Denies abdominal pain and Denies heartburn Reports as per HPI and Denies change in libido Neuro Denies syncope Psych Denies change in libido Endo Denies change in libido Physical Exam Const General: cooperative, healthy appearing, comfortable and no acute distress Orientation/consciousness: patient oriented x3 HEENT Face and sinus: Yes normal facial exam Mouth: moist mucous membranes Neck Neck: Yes normal visual inspection, Yes full ROM and Yes trachea midline Chest Chest palpation & inspection: normal inspection of the chest Resp Effort & Inspection: normal respiratory effort, able to speak in complete sentences and no respiratory distress GI Inspection: Yes normal to inspection Back/Spine/Pelvis Cervical Spine: normal cervical lordosis Thoracic/Lumbar Spine: thoracic and lumbar spine normal to inspection Skin General skin exam: no rashes or lesions noted Neuro General: patient oriented x3, gait normal, tone normal and moves all extremities Extrem General: Yes normal to inspection and Yes capillary refill normal Office Procedures Cystoscopy Consent Discussed risk and benefit or proposed procedure with the patient. Information consent for procedure given to the patient. Discussed technical aspects, risks, benefits and alternatives in full. Addressed all of the patient's questions and concerns regarding the procedure. The patient demonstrated knowledge and understanding. They wish to proceed with this procedure. Preparation The patient was prepped in the usual manner. A tanning wheel filler was present and in the room. Genitalia was prepped with betadine solution in a sterile manner. Lidocaine Jelly 2% was placed into the urethra and 16Fr flexible Olympus cystoscope was inserted into the meatus after adequate lubrication. Procedure Meatus circumcised Urethra anterior and posterior urethra normal Prostatic Urethra TURP defect Bladder examination with retroflexion of cystoscope Bladder Orifices normal shape and position Bladder Capacity median Trabeculations grade 1/2 Cellule Formation - Diverticulum Formation - Mucosal Erythema - Bladder Tumor scarring at left UO otherwise no recurrence [id number] DISPOSABLE SCOPE URO-G FLEXIBLE SCOPE Procedure code (CPT) selection complete Office Meds lidocaine HCl 2 % mucosal jelly in applicator Performing Provider: Tarun Fregoso MD Performing Location: [facility] Administered by: Nikhil Karimi LPN on 12/26/23 10:18 Dose Route Admin Location Dispensed Lot Number Expiration Date NDC Electric Accounting Machine Operator 10 mL intra-urethral 10 mL nitrofurantoin monohydrate/macrocrystals 100 mg capsule Performing Provider: Tarun Fregoso MD Performing Location: [facility] Administered by: Nikhil Karimi LPN on 12/26/23 10:18 Dose Route Admin Location Dispensed Lot Number Expiration Date NDC Electric Accounting Machine Operator 100 mg PO 1 cap naproxen 500 mg tablet Performing Provider: Tarun Fregoso MD Performing Location: [facility] Administered by: Nikhil Karimi LPN on 12/26/23 10:18 Dose Route Admin Location Dispensed Lot Number Expiration Date NDC Electric Accounting Machine Operator 500 mg PO 1 tab Assessment & Plan Assessment & Plan (1) Bladder cancer: Comment: Superficial low-grade recurrence initial 2015, superficial high-grade 03/22, recurrent 05/23 Code(s): C67.9 - Malignant neoplasm of bladder, unspecified Qualifiers: Bladder location: posterior wall Qualified Code(s): C67.4 - Malignant neoplasm of posterior wall of bladder Plan Plan three-week boost immunotherapy Three-month follow-up cystoscopy Orders: Orders AMB Cystoscopy Today C67.9 - Malignant neoplasm of bladder, unspecified, N32.81 - Overactive bladder Patient Instructions: Imaging studies, laboratory and physical exam results were discussed and reviewed in detail. No major barriers to patient understanding were identified. An opportunity to ask questions regarding the treatment plan was provided. All questions were answered. The patient expressed understanding and agreement with the above treatment plan. The patient is aware they should contact our office by phone for worsening of their current condition or the appearance of new urologic symptoms. Compliance is encouraged with any medications and followup testing that is ordered. It is a privilege to participate in the urologic care of your patient. If you have any questions or concerns regarding treatment for the above conditions, or other urologic issues, please do not hesitate to contact me. The office telephone contact is [phone]. This note is constructed using voice recognition software. While every effort has been made to ensure accuracy tooling manager errors may have been included. Yours sincerely, Dr Tarun Fregoso MD, [facility] - Urology Providers of Expert, Compassionate Care for the Genitourinary System Coding Level of Care Code Est Pt Level 3 (79075) Diagnoses Malignant neoplasm of posterior wall of urinary bladder C67.4 Bladder location: posterior wall CPT Codes Cystoscopy - CPT: 37116-[id number] ([id number])
== END 2023-12-26 10:38 | disposition home or self-care (01) ==
LOC: HO.HUSH 09:51
PROVIDERS: PCP Internal Medicine; Visit Provider Urology
DX: C67.4 Malignant neoplasm of posterior wall of bladder (principal); N32.81 Overactive bladder
CPT/HCPCS: 52000; 99213

== ENCOUNTER → 2023-12-26 09:50 | Outpatient (BNVA) | payer MEDICARE, OTHER, SELFPAY | PROVIDERS: PCP Internal Medicine; Visit Provider Urology | DX: C67.4 Malignant neoplasm of posterior wall of bladder (principal); N32.81 Overactive bladder | CPT/HCPCS: 52000; 99212 ==

== ENCOUNTER 2024-03-27 09:50 | Outpatient (AMB) | payer MEDICARE, OTHER, SELFPAY ==
--- NOTE | 2024-03-27 10:01 | MHC.OFFVIS ---
Intake Visit Reasons: cysto Intake Note: Patient is present for Cystoscopy Urology Medication:tolterodine Antibiotic Allergy:none Blood Thinner:none Lot: Exp: Chief Accounting Officer Required: No Allergies No Known Allergies [No Known Allergies*] Allergy (Verified 03/27/24 10:03) HPI Comments Details: Lucas is a pleasant male. He is a patient of Dr. Belle. He is seen for the following urologic condition - bladder cancer superficial high-grade - lower urinary tract symptoms - detrusor hyperactivity with impaired contractility Son Kirill - [phone] Underwent cystoscopy No evidence of recurrence Four month follow-up cystoscopy Bladder cancer Superficial High-Grade recurrent Last recurrence 03/22 Initial diagnosis 2016 Prior procedure 07/20 cystoscopy with fulguration Cystoscopy - 07/21 irritated bladder, fulguration areas, - 03/22 left ureteric orifice superficial high-grade - 06/22 healed prostate - 09/21 cysto with bladder biopsy shows chronic inflammation, no evidence disease - 05/23 TURBT superficial recurrence Imaging CT 07/21 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 - 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 Intravesicle therapy - Gemcitabine induction 6 week 04/21, 08/22 3 week boost - 05/23 repeat induction mitomycin-C with cytarabine, 12/22 boost MMC/Cytarabine Lower urinary tract symptoms Has urinary urgency Prior medication finasteride, terazosin Prior procedure TURP, GreenLight laser prostate 03/22 PSA 06/21 0.7 Background diabetes PFSH Medical History Employs prosthetic leg Elevated cholesterol Bladder tumor Urinary tract infection Acute blood loss anemia Hypertension Peripheral vascular disease Diabetes Bladder cancer Surgical History H/O colonoscopy Hx of below knee amputation History of prostate surgery History of transurethral destruction of bladder lesion Social History Household Members: Spouse Housing: House Are you a primary personal care aid to a significant other at home: No Do you presently have visiting nurse or other home services: No Alcohol intake: unknown Comment: Sleeping Patient Tobacco Use Status: Former Tobacco user Tobacco use type: Cigarette Second Hand Smoke Exposure: No service: Yes Current occupational status: retired Review of Systems Const Denies chills and Denies fever(s) Card Reports no additional complaints and Denies syncope Resp Denies cough GI Denies abdominal pain and Denies heartburn Reports as per HPI and Denies change in libido Neuro Denies syncope Psych Denies change in libido Endo Denies change in libido Physical Exam Const General: cooperative, healthy appearing, comfortable and no acute distress Orientation/consciousness: patient oriented x3 HEENT Face and sinus: Yes normal facial exam Mouth: moist mucous membranes Neck Neck: Yes normal visual inspection, Yes full ROM and Yes trachea midline Chest Chest palpation & inspection: normal inspection of the chest Resp Effort & Inspection: normal respiratory effort, able to speak in complete sentences and no respiratory distress GI Inspection: Yes normal to inspection Back/Spine/Pelvis Cervical Spine: normal cervical lordosis Thoracic/Lumbar Spine: thoracic and lumbar spine normal to inspection Skin General skin exam: no rashes or lesions noted Neuro General: patient oriented x3, gait normal, tone normal and moves all extremities Extrem General: Yes normal to inspection and Yes capillary refill normal Office Procedures Cystoscopy Consent Discussed risk and benefit or proposed procedure with the patient. Information consent for procedure given to the patient. Discussed technical aspects, risks, benefits and alternatives in full. Addressed all of the patient's questions and concerns regarding the procedure. The patient demonstrated knowledge and understanding. They wish to proceed with this procedure. Preparation The patient was prepped in the usual manner. A sessions clerk was present and in the room. Genitalia was prepped with betadine solution in a sterile manner. Lidocaine Jelly 2% was placed into the urethra and 16Fr flexible Olympus cystoscope was inserted into the meatus after adequate lubrication. Procedure Cystoscopy performed using a disposable Urovue digital 16 Peruvian cystoscope. Meatus normal position Urethra anterior and posterior within normal Prostatic Urethra TURP defect Bladder examination with retroflexion of cystoscope Bladder Orifices normal shape and position Bladder Capacity large Trabeculations grade 2 Cellule Formation - Diverticulum Formation - Mucosal Erythema consistent with immunotherapy change Bladder Tumor none [id number] DISPOSABLE SCOPE URO-G FLEXIBLE SCOPE Procedure code (CPT) selection complete Office Meds lidocaine HCl 2 % mucosal jelly in applicator Performing Provider: Tarun Fregoso MD Performing [facility] Administered by: Michael Mccann RN on 03/27/24 10:15 Dose Route Admin Location Dispensed Lot Number Expiration Date NDC Glass Blowing Instructor 10 mL intra-urethral 10 mL nitrofurantoin monohydrate/macrocrystals 100 mg capsule Performing Provider: Tarun Fregoso MD Performing Location: [facility] Administered by: Michael Mccann RN on 03/27/24 10:15 Dose Route Admin Location Dispensed Lot Number Expiration Date NDC Glass Blowing Instructor 100 mg PO 1 cap naproxen 500 mg tablet Performing Provider: Tarun Fregoso MD Performing Location: [facility] Administered by: Michael Mccann RN on 03/27/24 10:15 Dose Route Admin Location Dispensed Lot Number Expiration Date NDC Glass Blowing Instructor 500 mg PO 1 tab Assessment & Plan Assessment & Plan (1) BPH w urinary obs/LUTS: Code(s): N40.1 - Benign prostatic hyperplasia with lower urinary tract symptoms; N13.8 - Other obstructive and reflux uropathy Category: Medical (2) Overactive bladder: Code(s): N32.81 - Overactive bladder Category: Medical Plan Four month follow-up cystoscopy Orders: Orders AMB Cystoscopy Today C67.4 - Malignant neoplasm of posterior wall of bladder, N13.8 - Other obstructive and reflux uropathy, N40.1 - Benign prostatic hyperplasia with lower urinary tract symptoms Patient Instructions: Imaging studies, laboratory and physical exam results were discussed and reviewed in detail. No major barriers to patient understanding were identified. An opportunity to ask questions regarding the treatment plan was provided. All questions were answered. The patient expressed understanding and agreement with the above treatment plan. The patient is aware they should contact our office by phone for worsening of their current condition or the appearance of new urologic symptoms. Compliance is encouraged with any medications and followup testing that is ordered. It is a privilege to participate in the urologic care of your patient. If you have any questions or concerns regarding treatment for the above conditions, or other urologic issues, please do not hesitate to contact me. The office telephone contact is [phone]. This note is constructed using voice recognition software. While every effort has been made to ensure accuracy printing equipment mechanic errors may have been included. Yours sincerely, Dr Tarun Fregoso MD, [facility] - Urology Providers of Expert, Compassionate Care for the Genitourinary System Coding Level of Care Code Est Pt Level 3 (73436) Diagnoses BPH w urinary obs/LUTS N40.1; N13.8 Overactive bladder N32.81 CPT Codes Cystoscopy - CPT: [id number] ([id number])
== END 2024-03-27 10:46 | disposition home or self-care (01) ==
LOC: HO.HUSH 09:50
PROVIDERS: PCP Internal Medicine; Visit Provider Urology
DX: C67.4 Malignant neoplasm of posterior wall of bladder (principal); N40.1 Benign prostatic hyperplasia with lower urinary tract symptoms; N13.8 Other obstructive and reflux uropathy; N32.81 Overactive bladder
CPT/HCPCS: 52000; 99213

== ENCOUNTER → 2024-03-27 09:50 | Outpatient (BNVA) | payer MEDICARE, OTHER, SELFPAY | PROVIDERS: PCP Internal Medicine; Visit Provider Urology | DX: N40.1 Benign prostatic hyperplasia with lower urinary tract symptoms (principal); N32.81 Overactive bladder; N13.8 Other obstructive and reflux uropathy | CPT/HCPCS: 52000; 99212 ==

== ENCOUNTER 2024-07-29 09:50 | Outpatient (REF) | payer MEDICARE, OTHER, SELFPAY ==
[2024-07-29 17:11] LABS: Urine Cytology See Pathology rpt
== END 2024-07-29 09:51 | disposition home or self-care (01) ==
LOC: HO.LAB 09:50
PROVIDERS: PCP Internal Medicine; Visit Provider Urology
DX: C67.4 Malignant neoplasm of posterior wall of bladder (principal); N40.1 Benign prostatic hyperplasia with lower urinary tract symptoms; N13.8 Other obstructive and reflux uropathy
CPT/HCPCS: 52000; 81003; 88112; 99212

== ENCOUNTER 2024-07-29 09:50 | Outpatient (AMB) | payer MEDICARE, OTHER, SELFPAY ==
--- NOTE | 2024-07-29 10:17 | MHC.OFFVIS ---
Intake Visit Reasons: 4M Cystoscopy(Bladder Ca) Intake Note: Patient is Present for Cystoscopy Urology Med: None: None Antibiotic Allergy: None Blood Thinner: None URO- G Disposable Cystoscope lot: [id number] exp:11/01/2026 Last PSA: 2020- 0.7 Director Digital Strategy Required: No Accompanied by: Self / Same As Patient Allergies No Known Allergies [No Known Allergies*] Allergy (Verified 07/29/24 10:19) HPI Comments Details: Lucas is a pleasant male. He is a patient of Dr. Belle. He is seen for the following urologic condition - bladder cancer superficial high-grade - lower urinary tract symptoms - detrusor hyperactivity with impaired contractility Son Kirill - [phone] Underwent cystoscopy No evidence of recurrence Four month follow-up cystoscopy Some inflammation Bladder cancer Superficial High-Grade recurrent Last recurrence 03/22 Initial diagnosis 2016 Prior procedure 07/20 cystoscopy with fulguration Cystoscopy - 07/21 irritated bladder, fulguration areas, - 03/22 left ureteric orifice superficial high-grade - 06/22 healed prostate - 09/21 cysto with bladder biopsy shows chronic inflammation, no evidence disease - 05/23 TURBT superficial recurrence Imaging CT 07/21 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 - 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 Intravesicle therapy - Gemcitabine induction 6 week 04/21, 08/22 3 week boost - 05/23 repeat induction mitomycin-C with cytarabine, 12/22 boost MMC/Cytarabine Lower urinary tract symptoms Has urinary urgency Prior medication finasteride, terazosin Prior procedure TURP, GreenLight laser prostate 03/22 PSA 06/21 0.7 Background diabetes PFSH Medical History Employs prosthetic leg Elevated cholesterol Bladder tumor Urinary tract infection Acute blood loss anemia Hypertension Peripheral vascular disease Diabetes Bladder cancer Surgical History H/O colonoscopy Hx of below knee amputation History of prostate surgery History of transurethral destruction of bladder lesion Social History Household Members: Spouse Housing: House Are you a primary career education teacher to a significant other at home: No Do you presently have visiting nurse or other home services: No Alcohol intake: unknown Comment: Sleeping Patient Tobacco Use Status: Former Tobacco user Tobacco use type: Cigarette Second Hand Smoke Exposure: No service: Yes Current occupational status: retired Review of Systems Const Denies chills and Denies fever(s) Card Reports no additional complaints and Denies syncope Resp Denies cough GI Denies abdominal pain and Denies heartburn Reports as per HPI and Denies change in libido Neuro Denies syncope Psych Denies change in libido Endo Denies change in libido Physical Exam Const General: cooperative, healthy appearing, comfortable and no acute distress Orientation/consciousness: patient oriented x3 HEENT Face and sinus: Yes normal facial exam Mouth: moist mucous membranes Neck Neck: Yes normal visual inspection, Yes full ROM and Yes trachea midline Chest Chest palpation & inspection: normal inspection of the chest Resp Effort & Inspection: normal respiratory effort, able to speak in complete sentences and no respiratory distress GI Inspection: Yes normal to inspection Back/Spine/Pelvis Cervical Spine: normal cervical lordosis Thoracic/Lumbar Spine: thoracic and lumbar spine normal to inspection Skin General skin exam: no rashes or lesions noted Neuro General: patient oriented x3, gait normal, tone normal and moves all extremities Extrem General: Yes normal to inspection and Yes capillary refill normal Office Procedures Cystoscopy Consent Discussed risk and benefit or proposed procedure with the patient. Information consent for procedure given to the patient. Discussed technical aspects, risks, benefits and alternatives in full. Addressed all of the patient's questions and concerns regarding the procedure. The patient demonstrated knowledge and understanding. They wish to proceed with this procedure. Preparation The patient was prepped in the usual manner. A speech and drama teacher was present and in the room. Genitalia was prepped with betadine solution in a sterile manner. Lidocaine Jelly 2% was placed into the urethra and 16Fr flexible Olympus cystoscope was inserted into the meatus after adequate lubrication. Procedure Cystoscopy performed using a disposable Urovue digital 16 Ecuadorean cystoscope. Meatus circumcised Urethra anterior and posterior urethra normal Prostatic Urethra anterior lobe regrowth Bladder examination with retroflexion of cystoscope Bladder Orifices normal shape and position Bladder Capacity large Trabeculations grade group 3 Cellule Formation yes Diverticulum Formation - Mucosal Erythema irritated mucosa Bladder Tumor - [id number] DISPOSABLE SCOPE URO-G FLEXIBLE SCOPE Procedure code (CPT) selection complete Office Meds lidocaine HCl 2 % mucosal jelly in applicator Performing Provider: Tarun Fregoso MD Performing Location[place] [facility] Administered by: Michael Mccann RN on 07/29/24 10:50 Dose Route Admin Location Dispensed Lot Number Expiration Date NDC Computational Physicist 10 mL intra-urethral 10 mL nitrofurantoin monohydrate/macrocrystals 100 mg capsule Performing Provider: Tarun Fregoso MD Performing Location: [facility] Administered by: Michael Mccann RN on 07/29/24 10:50 Dose Route Admin Location Dispensed Lot Number Expiration Date NDC Computational Physicist 100 mg PO 1 cap naproxen 500 mg tablet Performing Provider: Tarun Fregoso MD Performing Location: [facility] Administered by: Michael Mccann RN on 07/29/24 10:50 Dose Route Admin Location Dispensed Lot Number Expiration Date NDC Computational Physicist 500 mg PO 1 tab Results AMB Urinalysis, Automated UA Leukoctes 70 Cristela/uL Last Edit by Brandy Amin [facility] on 07/29/24 10:44 UA Nitrite Negative Last Edit by Brandy Amin [facility] on 07/29/24 10:44 UA Urobilinogen 0.2 mg/dL Last Edit by Brandy Amin [facility] on 07/29/24 10:44 UA Protein 15 mg/dL Last Edit by Brandy Amin [facility] on 07/29/24 10:44 UA pH 5.5 Last Edit by Brandy Amin [facility] on 07/29/24 10:44 UA Blood 10 Quoc/uL Last Edit by Brandy Amin [facility] on 07/29/24 10:44 UA Specific Cobb 1.020 Last Edit by Brandy Amin [facility] on 07/29/24 10:44 UA Ketone Negative Last Edit by Brandy Amin [facility] on 07/29/24 10:44 UA Bilirubin 0 mg/dL Last Edit by Brandy Amin [facility] on 07/29/24 10:44 UA Glucose 0 mg/dL Last Edit by Brandy Amin [facility] on 07/29/24 10:44 Results Reviewed Results Reviewed: Laboratory Last Values Urine pH (Auto) 5.5 07/29/24 10:41 Specific Cobb (Auto) 1.020 07/29/24 10:41 Urine Protein (Auto) 15 mg/dL 07/29/24 10:41 Glucose (UA)(Auto) 0 mg/dL 07/29/24 10:41 Urine Ketones (Auto) Negative 07/29/24 10:41 Urine Blood (Auto) 10 Quoc/uL 07/29/24 10:41 Urine Nitrite (Auto) Negative 07/29/24 10:41 Urine Bilirubin (Auto) 0 mg/dL 07/29/24 10:41 Urine Urobilinogen (Auto) 0.2 mg/dL 07/29/24 10:41 Leukocyte Esterase (Auto) 70 Cristela/uL 07/29/24 10:41 Assessment & Plan Assessment & Plan (1) Bladder cancer: Comment: Superficial low-grade recurrence initial 2015, superficial high-grade 03/22, recurrent 05/23 Code(s): C67.9 - Malignant neoplasm of bladder, unspecified Category: Medical Qualifiers: Bladder location: posterior wall Qualified Code(s): C67.4 - Malignant neoplasm of posterior wall of bladder (2) BPH w urinary obs/LUTS: Code(s): N40.1 - Benign prostatic hyperplasia with lower urinary tract symptoms; N13.8 - Other obstructive and reflux uropathy Category: Medical Plan Four month follow-up office cysto Orders: Orders AMB Cystoscopy Today C67.4 - Malignant neoplasm of posterior wall of bladder AMB Urinalysis Automated Today Z13.9 - Encounter for screening, unspecified Urine Cytology Today C67.4 - Malignant neoplasm of posterior wall of bladder Patient Instructions: Imaging studies, laboratory and physical exam results were discussed and reviewed in detail. No major barriers to patient understanding were identified. An opportunity to ask questions regarding the treatment plan was provided. All questions were answered. The patient expressed understanding and agreement with the above treatment plan. The patient is aware they should contact our office by phone for worsening of their current condition or the appearance of new urologic symptoms. Compliance is encouraged with any medications and followup testing that is ordered. It is a privilege to participate in the urologic care of your patient. If you have any questions or concerns regarding treatment for the above conditions, or other urologic issues, please do not hesitate to contact me. The office telephone contact is [phone]. This note is constructed using voice recognition software. While every effort has been made to ensure accuracy progressive assembler and fitter errors may have been included. Yours sincerely, Dr Tarun Fregoso MD, KEVIN [facility] - Urology Providers of Expert, Compassionate Care for the Genitourinary System Coding Level of Care Code Est Pt Level 3 (19418) Diagnoses Malignant neoplasm of posterior wall of urinary bladder C67.4 Bladder location: posterior wall BPH w urinary obs/LUTS N40.1; N13.8 CPT Codes Cystoscopy - CPT: 66887-[id number] ([id number])
== END 2024-07-29 11:14 | disposition home or self-care (01) ==
LOC: HO.HUSH 09:50
PROVIDERS: PCP Internal Medicine; Visit Provider Urology
DX: C67.4 Malignant neoplasm of posterior wall of bladder (principal); N40.1 Benign prostatic hyperplasia with lower urinary tract symptoms; N13.8 Other obstructive and reflux uropathy; Z13.9 Encounter for screening, unspecified
CPT/HCPCS: 52000; 99213

== ENCOUNTER 2024-12-02 09:46 | Outpatient (AMB) | payer MEDICARE, OTHER, SELFPAY ==
--- NOTE | 2024-12-02 10:07 | A.OFFVIS_ITS ---
Intake Visit Reasons: cysto(SET) Intake Note: Patient is Present for Cystoscopy Urology Med: None: None Antibiotic Allergy: None Blood Thinner: None Art Class Model Required: No Accompanied by: Self / Same As Patient Allergies No Known Allergies [No Known Allergies*] Allergy (Verified 12/02/24 10:07) HPI Comments Details: Lucas is a pleasant male. He is a patient of Dr. Belle. He is seen for the following urologic condition - bladder cancer superficial high-grade - lower urinary tract symptoms - detrusor hyperactivity with impaired contract ility Son Kirill - [phone] Here for check cystoscopy Bladder cancer Superficial High-Grade recurrent Last recurrence 03/22 Initial diagnosis 2016 Prior procedure 07/20 cystoscopy with fulguration Cystoscopy - 07/21 irritated bladder, fulguration areas, - 03/22 left ureteric orifice superficial high-grade - 06/22 healed prostate - 09/21 cysto with bladder biopsy shows chronic inflammation, no evidence disease - 05/23 TURBT superficial recurrence Cytology - 07/[address] 07/21 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 - 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 Intravesicle therapy - Gemcitabine induction 6 week 04/21, 08/22 3 week boost - 05/23 repeat induction mitomycin-C with cytarabine, 12/22 boost MMC/Cytarabine Lower urinary tract symptoms Has urinary urgency Prior medication finasteride, terazosin Prior procedure TURP, GreenLight laser prostate 03/22 PSA 06/21 0.7 Background diabetes PFSH Medical History Employs prosthetic leg Elevated cholesterol Bladder tumor Urinary tract infection Acute blood loss anemia Hypertension Peripheral vascular disease Diabetes Bladder cancer Surgical History H/O colonoscopy Hx of below knee amputation History of prostate surgery History of transurethral destruction of bladder lesion Social History Household Members: Spouse Housing: House Are you a primary animal care provider to a significant other at home: No Do you presently have visiting nurse or other home services: No Alcohol intake: unknown Comment: Sleeping Patient Tobacco Use Status: Former Tobacco user Tobacco use type: Cigarette Second Hand Smoke Exposure: No service: Yes Current occupational status: retired Review of Systems Const Denies chills and Denies fever(s) Card Reports no additional complaints and Denies syncope Resp Denies cough GI Denies abdominal pain and Denies heartburn Reports as per HPI and Denies change in libido Neuro Denies syncope Psych Denies change in libido Endo Denies change in libido Physical Exam Const General: cooperative, healthy appearing, comfortable and no acute distress Orientation/consciousness: patient oriented x3 HEENT Face and sinus: Yes normal facial exam Mouth: moist mucous membranes Neck Neck: Yes normal visual inspection, Yes full ROM and Yes trachea midline Chest Chest palpation & inspection: normal inspection of the chest Resp Effort & Inspection: normal respiratory effort, able to speak in complete sentences and no respiratory distress GI Inspection: Yes normal to inspection Back/Spine/Pelvis Cervical Spine: normal cervical lordosis Thoracic/Lumbar Spine: thoracic and lumbar spine normal to inspection Skin General skin exam: no rashes or lesions noted Neuro General: patient oriented x3, gait normal, tone normal and moves all extremities Extrem General: Yes normal to inspection and Yes capillary refill normal Office Procedures Cystoscopy Consent Discussed risk and benefit or proposed procedure with the patient. Information consent for procedure given to the patient. Discussed technical aspects, risks, benefits and alternatives in full. Addressed all of the patient's questions and concerns regarding the procedure. The patient demonstrated knowledge and understanding. They wish to proceed with this procedure. Preparation The patient was prepped in the usual manner. A toaster element repairer was present and in the room. Genitalia was prepped with betadine solution in a sterile manner. Lidocaine Jelly 2% was placed into the urethra and 16Fr flexible Olympus cystoscope was inserted into the meatus after adequate lubrication. Procedure Normal anterior and posterior urethra Open prostate Evidence of intravesical treatment within bladder. Small areas of mucosal erythema. No clear evidence of new onset lesion. [id number] DISPOSABLE SCOPE URO-G FLEXIBLE SCOPE Procedure code (CPT) selection complete Office Meds lidocaine HCl 2 % mucosal jelly in applicator Performing Provider: Tarun Fregoso MD Performing Location: [facility] [place] [facility] Administered by: Geovanna Sotelo RN on 12/02/24 10:37 Dose Route Admin Location Dispensed Lot Number Expiration Date [facility] Mine Foreman 10 mL intra-urethral 10 mL nitrofurantoin monohydrate/macrocrystals 100 mg capsule Performing Provider: Tarun Fregoso MD Performing Location: [facility] [place] [facility] Administered by: Geovanna Sotelo RN on 12/02/24 10:37 Dose Route Admin Location Dispensed Lot Number Expiration Date NDC Mine Foreman 100 mg PO 1 cap Results AMB Urinalysis, Automated UA Leukoctes 15 Cristela/uL Last Edit by Alexia Jasso on 12/02/24 10:39 UA Nitrite Negative Last Edit by Alexia Jasso on 12/02/24 10:39 UA Urobilinogen 3.5 mg/dL Last Edit by Alexia Jasso on 12/02/24 10:39 UA Protein 1 mg/dL Last Edit by Alexia Jasso on 12/02/24 10:39 UA pH 6.0 Last Edit by Alexia Jasso on 12/02/24 10:39 UA Blood 80 Quoc/uL Last Edit by Alexia Jasso on 12/02/24 10:39 UA Specific [place] 1.015 Last Edit by Alexia Jasso on 12/02/24 10:39 UA Ketone Negative Last Edit by Alexia Jasso on 12/02/24 10:39 UA Bilirubin 0 mg/dL Last Edit by Alexia Jasso on 12/02/24 10:39 UA Glucose 0 mg/dL Last Edit by Alexia Jasso on 12/02/24 10:39 Results Reviewed Results Reviewed: Laboratory Last Values Urine pH (Auto) 6.0 12/02/24 10:14 Specific [place] (Auto) 1.015 12/02/24 10:14 Urine Protein (Auto) 1 mg/dL 12/02/24 10:14 Glucose (UA)(Auto) 0 mg/dL 12/02/24 10:14 Urine Ketones (Auto) Negative 12/02/24 10:14 Urine Blood (Auto) 80 Quoc/uL 12/02/24 10:14 Urine Nitrite (Auto) Negative 12/02/24 10:14 Urine Bilirubin (Auto) 0 mg/dL 12/02/24 10:14 Urine Urobilinogen (Auto) 3.5 mg/dL 12/02/24 10:14 Leukocyte Esterase (Auto) 15 Cristela/uL 12/02/24 10:14 Assessment & Plan Assessment & Plan (1) Bladder cancer: Comment: Superficial low-grade recurrence initial 2015, superficial high-grade 03/22, recurrent 05/23 Code(s): C67.9 - Malignant neoplasm of bladder, unspecified Category: Medical Qualifiers: Bladder location: posterior wall Qualified Code(s): C67.4 - Malignant neoplasm of posterior wall of bladder (2) Nocturia more than twice per night: Code(s): R35.1 - Nocturia Category: Medical Plan Cytology Check cysto six-month Orders: Orders AMB Cystoscopy Today C67.4 - Malignant neoplasm of posterior wall of bladder Urine Cytology Today N39.0 - Urinary tract infection, site not specified AMB Urinalysis Automated Today Z13.9 - Encounter for screening, unspecified Patient Instructions: This note is constructed using voice recognition software. While every effort has been made to ensure accuracy full stack software developer errors may have been included. Imaging studies, laboratory and physical exam results were discussed and reviewed in detail. No major barriers to patient understanding were identified. An opportunity to ask questions regarding the treatment plan was provided. All questions were answered. The patient expressed understanding and agreement with the above treatment plan. The patient is aware they should contact our office by phone for worsening of their current condition or the appearance of new urologic symptoms. Compliance is encouraged with any medications and followup testing that is ordered. It is a privilege to participate in the urologic care of your patient. If you have any questions or concerns regarding treatment for the above conditions, or other urologic issues, please do not hesitate to contact me. The office telephone contact is [phone]. Sincerely, Dr Tarun Fregoso MD, KEVIN [facility] - Urology Compassionate Specialist Care for the Genitourinary System Coding Level of Care Code Est Pt Level 3 (71117) Diagnoses Malignant neoplasm of posterior wall of urinary bladder C67.4 Bladder location: posterior wall Nocturia more than twice per night R35.1 CPT Codes Cystoscopy - CPT: [id number] ([id number])
--- OUTSIDE RECORDS SUMMARY | 2024-12-02 11:16 | XMS_ITS | Continuity of Care Document ---
Author Name [facility] Organization [facility] Care Team Providers Care Management Rep Name Role Phone [facility] Unavailable Unavailable Immunizations Combined list of available immunizations from the Department of Defense and Veterans Affairs facilities. Immunization Series Date Given Administered By Site Reaction Lot Number CVX Code Drug Die Assembler Status Comments Source COVID-19 (MODERNA), MRNA, LNP-S, PF, 100 MCG/0.5 ML DOSE 2 2020 207 complet ed MOD; [id number]; 1 [place] [employer] [facility] COVID-19 (MODERNA), MRNA, LNP-S, PF, 100 MCG/0.5 ML DOSE 1 2020 207 complet ed MOD; [id number]; 1 [facility] Encounters Combined list of: 1) Encounters from Department of Veterans Affairs facilities going backup to the last 18 months, not all VA inpatient encounters are included; 2) Encounters from the Department of Defense facilities going backup to 280 months. Location Location Details Encounter Type Encounter Number Reason For Visit Attending Provider ADM Date DC Date Status Disposition Source [place] [employer] [facility] Outpatient Encounter [id number] 09/29 [place] [employer] [facility] [place] [facility]
--- OUTSIDE RECORDS SUMMARY | 2024-12-02 11:16 | XMS_ITS | Encounter Summary ---
Author Organization [facility] Address [address] [place] [address] Care Team Providers Care Diving Coach Name Role Phone Laith Belle MD Primary Care Provider [phone] Reason for Visit * Imaging (Routine) - Closed Specialty Diagnoses / Procedures Referred By Calvin christianson Referred To Contact Diagnoses PAD (peripheral artery disease) ([facility]/HCC) S/P femoral-femoral bypass surgery Procedures Vascular US duplex lower extremity arteries bilateral with ASIYA Kathleen Anglin MD [address] [place] [address] Phone: tel: fax: [facility] Referral ID Status Reason Start Date Expiration Date Visits Re quested Visits Authorized [id number] Closed 07/20/2024 07/20/2025 1 1 Encounter Details Date Type Department Care Team (Latest Contact Info) Description 11/27/2024 9:45 AM EST Ancillary Procedure [facility] - [facility] [address] [place] [phone] PAD (peripheral artery disease) ([facility]); S/P femoral-femoral bypass surgery Social History Tobacco Use Types Packs/Day Years Used Date Smoking Tobacco: Former Cigarettes Q uit: 10/01/2017 Smokeless Tobacco: Former Alcohol Use Standard Drinks/Week Comments No 0 (1 standard drink = 0.6 oz pur e alcohol) Sex and Gender Information Value Date Recorded Sex Assigned at Not on file Legal Sex Male 8:55 PM EST Gender Identity Not on file Sexual Orientation Not on file documented as of this encounter Plan of Treatment Upcoming Encounters Date Type Department Care Team (Late st Contact Info) Description 12/04/2024 11:15 AM EST Ancillary Procedure [facility] - [address] [place] [address] 12/17/2024 10:00 AM EDT Office Visit Vascular Surgery - [place] [address] [place] [address] Kathleen Anglin MD [address] [place] [address] documented as of this encounter Procedures Procedure Name Priority Date/Time Associated Diagnosis Comments VAS US DUPLEX LOWER EXT ARTERIES BILAT WITH ASIYA Routine 11/27/2024 10:54 AM EST PAD (peripheral artery disease) (CMS/HCC) S/P femoral-femoral bypass surgery documented in this encounter Results * Vascular US duplex lower extremity arteries bilateral with ASIYA (11/27/2024 10:54 AM EST) Left Dist External Iliac PSV 290 cm/s CV VAS LAB Left Prox External Iliac PSV 324 cm/s CV VAS LAB Left AT dist sys PSV 52 cm/s CV VAS LAB Left AT mid sys PSV 43 cm/s CV VAS LAB Left AT prox sys PSV 52 cm/s CV VAS LAB Left GOLF CLUB REPAIRER prox sys PSV 213 cm/s CV VAS LAB Left mid peroneal sys PSV 0 cm/s CV VAS LAB Left popliteal dist sys PSV 0 cm/s CV VAS LAB Left popliteal prox sys PSV 0 cm/s CV VAS LAB Left PT dist sys PSV 11 cm/s CV VAS LAB Left PT mid sys PSV 0 cm/s CV VAS LAB Left PT prox sys PSV 0 cm/s CV VAS LAB Left profunda sys PSV 104 cm/s CV VAS LAB Left super femoral dist sys PSV 0 cm/s CV VAS LAB Left super femoral mid sys PSV 124 cm/s CV VAS LAB Left super femoral prox sys PSV 0 cm/s CV VAS LAB Right Dist External Iliac PSV 71 cm/s CV VAS LAB Right Prox External Iliac PSV 183 cm/s CV VAS LAB Right GOLF CLUB REPAIRER prox sys PSV 75 cm/s CV VAS LAB Right popliteal dist sys PSV 0 cm/s CV VAS LAB Right popliteal prox sys PSV 0 cm/s CV VAS LAB Right profunda sys PSV 0 cm/s CV VAS LAB Right super femoral dist sys PSV 0 cm/s CV VAS LAB Right super femoral mid sys PSV 49 cm/s CV VAS LAB Right super femoral prox sys PSV 0 cm/s CV VAS LAB Right arm BP 121 mmHg CV VAS LAB Left arm BP 138 mmHg CV VAS LAB Left posterior tibial 107 mmHg CV VAS LAB Left Dorsalis Pedis 93 mmHg CV VAS LAB Left ASIYA 0.78 CV VAS LAB Left lower BPG 1 prox allen PSV 61 cm/s CV VAS LAB Left lower BPG thigh 1 prox graft PSV 59 cm/s CV VAS LAB Left lower BPG knee 1 mid graft PSV 65 cm/s CV VAS LAB Left lower BPG calf 1 dist graft PSV 49 cm/s CV VAS LAB Left lower BPG 1 dist allen PSV 42 cm/s CV VAS LAB Anatomical Region Laterality Modality Vascular, Abdomen Ultrasound Narrative 11/29/2024 5:00 PM EST Right: 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 ??Occluded deep and superficial femoral artery. ?? Reconstitution of the distal superficial femoral artery with monophasic flow. Left: ASIYA 0.78. ??Normal amplitude PVR waveform. ??Decreased digit PPG waveform. Significant inflow arterial occlusive disease. Patent femoral-anterior tibial artery bypass. Monophasic waveforms and the anterior tibial artery with reversal of flow. Consider CTA or formal angiogram to evaluate inflow arterial occlusive disease proximal to the femoral anterior tibial artery bypass. Right Lower Arterial Duplex The distal external iliac artery has monophasic flow. The common femoral artery has monophasic flow. The profunda femoris artery has absent flow. The proximal and distal superficial femoral artery have absent flow. The mid superficial femoral artery has monophasic flow. The popliteal artery has absent flow. Left Lower Arterial Duplex The distal external iliac artery has monophasic flow. The common femoral artery has monophasic flow. The profunda femoris artery has monophasic flow. The proximal and distal superficial femoral artery have absent flow. The mid superficial femoral artery has monophasic flow. The popliteal artery has absent flow. The anterior tibial artery has monophasic reversed flow. The proximal and mid posterior tibial artery has absent flow. The distal posterior tibial artery have monophasic reversed flow. The peroneal artery was not well visualized. Lamp Wirer Details A sterling scale, color and doppler analysis ultrasound was performed. During the study longitudinal views were obtained. Pulsed wave doppler was performed. us Kathleen Anglin MD CV VASCULAR PROCEDURES Fi nal Result documented in this encounter Visit Diagnoses Diagnosis PAD (peripheral artery disease) ([facility]) Unspecified peripheral vascular disease S/P femoral-femoral bypass surgery documented in this encounter Care Teams Diving Coach Relationship Specialty Start Date End Date Laith Belle MD [address] [place] [address] [address] [place], [place] PCP - General Internal Medicine 05/09/19 documented as of this encounter
--- OUTSIDE RECORDS SUMMARY | 2024-12-02 11:16 | XMS_ITS | Clinical Summary ---
Author Organization [address] [place] [address] [place] [address] Phone Care Team Providers Care Ground Water Technician Name Role Phone Laith Belle MD Primary Care Provider [phone] Allergies No known active allergies Medications atorvastatin calcium (ATORVASTATIN ORAL) Take by mouth. Active cholecalciferol (VITAMIN D-3) 125 mcg (5,000 unit) capsule Take 1 Cap by mouth every 7 days. Active glipiZIDE (GLUCOTROL XL) 5 mg 24 hr tablet Take 5 mg by mouth daily. Active lisinopriL (PRINIVIL,ZESTRI L) 10 mg tablet Take 10 mg by mouth daily. Active metFORMIN (GLUCOPHAGE) 500 mg tablet Take 500 mg by mouth 2 times daily (with meals). Active MEN'S MULTI-VITAMIN ORAL Take by mouth. 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), type 2 with peripheral vascular complications 04/28/2019 Hypertension 04/28/2019 Vitamin D deficiency 04/28/2019 PAD (peripheral artery disease) 11/02/2018 Encounters Date Type Department Care Team Description 11/27/2024 9:45 AM EST Ancillary Procedure [facility] - [facility] [address] [address] PAD (peripheral artery disease) ([facility]); S/P femoral-femoral bypass surgery from Last 3 Months Surgical History Surgery Date Site/Laterality Comments OTHER SURGICAL HISTORY 04/02/2018 Left PROCEDURE: [place] TEAEC W/WO PATCH GRAFT COMMON FEMORAL ANGIOPLASTY 12/05/2017 Right PROCEDURE: HISTORICAL ANGIOPLASTY OTHER SURGICAL HISTORY Right PROCEDURE: HISTORICAL BELOW KNEE AMP Medical History Medical History Date Comments Vitamin D deficiency 04/28/2019 DX:Vitamin D deficiency Hypertension 04/28/2019 DX:Hypertension S/P BKA (below knee amputati on) ([facility]) 04/28/2019 DX:S/P BKA (below knee amput ation) ([facility]); COMMENT: Right, Prosthesis DM (diabetes mellitus), type 2 with peripheral vascular complications ([facility]) 04/28/2019 DX:DM (diabetes mellitus), t ype 2 with peripheral vascular complications ([facility]) Diabetic neuropathy ([facility]) 04/28/2019 DX :Diabetic neuropathy ([facility]) DM (diabetes mellitus), type 2 with neurological complications ([facility]) 04/28/2019 DX:DM (diabetes m ellitus), type 2 with neurological complications ([facility]) PAD (peripheral artery disea se) ([facility]) 11/02/2018 DX:PAD (peripheral artery di sease) ([facility]) Family History Relation Name Status Comments Father Mother Social History Tobacco Use Types Packs/Day Years [...] on file Sexual Orientation Not on file Obstetrics History Last Filed Vital Signs Vital Sign Reading Time Taken Comments Blood Pressure 139/77 12/05/2023 10:36 AM EST R Arm Pulse 62 12/05/2023 10:36 AM EST Temperature - - Respiratory Rate - - Oxygen Saturation - - Inhaled Oxygen Concentration - - Weight 71.7 kg (158 lb) 12/05/2023 10:32 AM EST Height 177.8 cm (5' 10 ) 12/05/2023 10:32 AM EST Body Mass Index 22.67 12/05/2023 10:32 AM EST Plan of Treatment Upcoming Encounters Date Type Department Care Team (Late st Contact Info) Description 12/04/2024 11:15 AM EST Ancillary Procedure [facility] - [address] [place] [address] 12/17/2024 10:00 AM EDT Office Visit Vascular Surgery - [place] [address] [place] [phone] Kathleen Anglin MD [address] [place] [address] Health Maintenance Due Date Last Done Comments Diabetes: Annual GFR (Glomerular Filtration Rate) 1947 Diabetes: Annual Foot Exam 1957 Diabetes: Annual Retina Eye Exam 1957 DTaP,Tdap,and Td Vaccines (1 - Tdap) 1966 Pneumococcal Vaccine: 50+ Years (1 of 2 - PCV) 1966 Zoster Vaccines (1 of 2) 1997 RSV Immunization Patients 60 + Years Old (1 - 1-dose 75+ series) 2022 Cholesterol Screening (Lipid Panel) 09/02/2022 Depression Screening 09/02/2022 Falls Risk Assessment 09/02/2022 Hepatitis C Screening 09/02/2022 Medicare Annual Wellness Visit 09/02/2022 Social Influencers of Health Screening 09/02/2022 Diabetes: Annual Urine Albumin-Creatinine Ratio (uACR) 09/07/2022 Diabetes: Blood Sugar Contro l Test (HGBA1C) 09/07/2022 Hypertension/CHF/CAD Annual BMP Blood Test 09/07/2022 COVID-19 Vaccine (2023-2 5 season) 2024 09/19/2021, 02/12/2021, 01/15/2021 Influenza Vaccine (#1) 2024 HIB Vaccines Aged Out No longer eligi ble based on patient's age to complete this topic HPV Vaccines Aged Out No longer eligi ble based on patient's age to complete this topic Hepatitis A Vaccines Aged Out No long er eligible based on patient's age to complete this topic Hepatitis B Vaccines Aged Out No long er eligible based on patient's age to complete this topic IPV Vaccines Aged Out No longer eligi ble based on patient's age to complete this topic MMR Vaccines Aged Out No longer eligi ble based on patient's age to complete this topic Meningococcal ACWY Vaccine Aged Out N o longer eligible based on patient's age to complete this topic Meningococcal B Vacine Aged Out No lo nger eligible based on patient's age to complete this topic RSV Immunization Patients Under 20 months Aged Out No longer eligible b ased on patient's age to complete this topic Varicella Vaccines Aged Out No longer eligible based on patient's age to complete this topic Procedures Procedure Name Priority Date/Time Associated Diagnosis Comments VAS US DUPLEX LOWER EXT ARTERIES BILAT WITH ASIYA Routine 11/27/2024 10:54 AM EST PAD (peripheral artery disease) (CMS/HCC) S/P femoral-femoral bypass surgery from Last 3 Months Results * Vascular US duplex lower extremity [...] PSV 52 cm/s CV VAS LAB Left CARBON FURNACE OPERATOR prox sys PSV 213 cm/s CV VAS [...] PSV 183 cm/s CV VAS LAB Right CARBON FURNACE OPERATOR prox sys PSV 75 cm/s CV VAS [...] The peroneal artery was not well visualized. Market Development Director Details A sterling scale, color and doppler analysis ultrasound was performed. During the study longitudinal views were obtained. Pulsed wave doppler was performed. us Kathleen Anglin MD CV VASCULAR PROCEDURES Fi nal Result from Last 3 Months Insurance MEDICARE [facility] Care Teams Ground Water Technician Relationship Specialty Start Date End Date Laith Belle MD [address] [place] [address] [address] [place], [place] PCP - General Internal Medicine 05/09/19
== END 2024-12-02 10:57 | disposition home or self-care (01) ==
LOC: HO.HUSH 09:46
PROVIDERS: PCP Internal Medicine; Visit Provider Urology
DX: C67.4 Malignant neoplasm of posterior wall of bladder (principal); R35.1 Nocturia; Z13.9 Encounter for screening, unspecified
CPT/HCPCS: 52000; 99213

== ENCOUNTER 2024-12-02 09:46 | Outpatient (REF) | payer MEDICARE, OTHER, SELFPAY ==
--- OUTSIDE RECORDS SUMMARY | 2024-12-02 13:06 | XMS_ITS | Clinical Summary ---
Author Organization [address] [place] [address] [place] [phone] Phone Care Team Providers Care Inspector Hairspring Name Role Phone Laith Belle MD Primary Care Provider [phone] Allergies No known active allergies Medications atorvastatin [...] Description 11/27/2024 9:45 AM EST Ancillary Procedure [facility] - [facility] [address] [address] PAD (peripheral artery disease) ([facility]); S/P femoral-femoral bypass surgery from Last 3 Months Surgical History Surgery Date Site/Laterality Comments OTHER SURGICAL HISTORY 04/02/2018 Left PROCEDURE: [place] TEAEC W/WO PATCH GRAFT COMMON FEMORAL ANGIOPLASTY 12/05/2017 Right PROCEDURE: HISTORICAL ANGIOPLASTY OTHER SURGICAL HISTORY Right PROCEDURE: HISTORICAL BELOW KNEE AMP Medical History Medical History Date Comments Vitamin D deficiency 04/28/2019 DX:Vitamin D deficiency Hypertension 04/28/2019 DX:Hypertension S/P BKA (below knee amputati on) ([facility]) 04/28/2019 DX:S/P BKA (below knee amput ation) ([facility]); COMMENT: Right, Prosthesis DM (diabetes mellitus), type 2 with peripheral vascular complications ([facility]) 04/28/2019 DX:DM (diabetes mellitus), t ype 2 with peripheral vascular complications ([facility]) Diabetic neuropathy ([facility]) 04/28/2019 DX :Diabetic neuropathy ([facility]) DM (diabetes mellitus), type 2 with neurological complications ([facility]) 04/28/2019 DX:DM (diabetes m ellitus), type 2 with neurological complications ([facility]) PAD (peripheral artery disea se) ([facility]) 11/02/2018 DX:PAD (peripheral artery di sease) ([facility]) Family History Relation Name Status [...] Description 12/04/2024 11:15 AM EST Ancillary Procedure [facility] - [address] [place] [address] 12/17/2024 10:00 AM EDT Office Visit Vascular Surgery - [place] [address] [place] [phone] Kathleen Anglin MD [address] [place] [address] Health Maintenance Due Date Last Done Comments [...] PSV 52 cm/s CV VAS LAB Left COMMUNITY SERVICE OFFICER prox sys PSV 213 cm/s CV VAS [...] PSV 183 cm/s CV VAS LAB Right COMMUNITY SERVICE OFFICER prox sys PSV 75 cm/s CV VAS [...] The peroneal artery was not well visualized. Clinical Data Research Details A sterling scale, color and doppler analysis ultrasound was performed. During the study longitudinal views were obtained. Pulsed wave doppler was performed. us Kathleen Anglin MD CV VASCULAR PROCEDURES Fi nal Result from Last 3 Months Insurance MEDICARE [facility] Care Teams Inspector Hairspring Relationship Specialty Start Date End Date Laith Belle MD [address] [place] [address] [address] [place], [place] PCP - General Internal Medicine 05/09/19
--- OUTSIDE RECORDS SUMMARY | 2024-12-02 13:06 | XMS_ITS | Continuity of Care Document ---
Author Name [facility] Organization [facility] Care Team Providers Care Safety Counselor Name Role Phone [facility] Unavailable Unavailable Immunizations Combined list of available immunizations from the Department of Defense and Veterans Affairs facilities. Immunization Series Date Given Administered By Site Reaction Lot Number CVX Code Drug Exchange Trouble Shooter Status Comments Source COVID-19 (MODERNA), MRNA, LNP-S, PF, 100 MCG/0.5 ML DOSE 2 2020 207 complet ed MOD; [id number]; 1 [facility] COVID-19 (MODERNA), MRNA, LNP-S, PF, 100 MCG/0.5 ML DOSE 1 2020 207 complet ed MOD; [id number]; 1 [facility] Encounters Combined list of: 1) Encounters from Department of Veterans Affairs facilities going backup to the last 18 months, not all VA inpatient encounters are included; 2) Encounters from the Department of Defense facilities going backup to 280 months. Location Location Details Encounter Type Encounter Number Reason For Visit Attending Provider ADM Date DC Date Status Disposition Source [facility] Encounter [id number] 09/29 [facility]
--- OUTSIDE RECORDS SUMMARY | 2024-12-02 13:07 | XMS_ITS | Encounter Summary ---
Author Organization [facility] Address [address] [place] [address] Care Team Providers Care Repair Department Manager Name Role Phone Laith Belle MD Primary Care Provider [phone] Reason for Visit * Imaging (Routine) - Closed Specialty Diagnoses / Procedures Referred By Calvin christianson Referred To Contact Diagnoses PAD (peripheral artery disease) ([facility]/HCC) S/P femoral-femoral bypass surgery Procedures Vascular US duplex lower extremity arteries bilateral with ASIYA Kathleen Anglin MD [address] [place] [address] Phone: tel: fax: [facility] Referral ID Status Reason Start Date Expiration Date Visits Re quested Visits Authorized [id number] Closed 07/20/2024 07/20/2025 1 1 Encounter Details Date Type Department Care Team (Latest Contact Info) Description 11/27/2024 9:45 AM EST Ancillary Procedure [facility] - [facility] [address] [place] [phone] PAD (peripheral artery disease) ([facility]); S/P femoral-femoral bypass surgery Social History Tobacco [...] Description 12/04/2024 11:15 AM EST Ancillary Procedure [facility] - [address] [place] [address] 12/17/2024 10:00 AM EDT Office Visit Vascular Surgery - [place] [address] [place] [address] Kathleen Anglin MD [address] [place] [address] documented as of this encounter Procedures Procedure [...] PSV 52 cm/s CV VAS LAB Left AUGER MILL OPERATOR prox sys PSV 213 cm/s CV [...] PSV 183 cm/s CV VAS LAB Right AUGER MILL OPERATOR prox sys PSV 75 cm/s CV [...] The peroneal artery was not well visualized. Evp Chief Exploration Officer Details A sterling scale, color and doppler analysis ultrasound was performed. During the study longitudinal views were obtained. Pulsed wave doppler was performed. us Kathleen Anglin MD CV VASCULAR PROCEDURES Fi nal Result documented in this encounter Visit Diagnoses Diagnosis PAD (peripheral artery disease) ([facility]) Unspecified peripheral vascular disease S/P femoral-femoral bypass surgery documented in this encounter Care Teams Repair Department Manager Relationship Specialty Start Date End Date Laith Belle MD [address] [place] [address] [address] [place], [place] PCP - General Internal Medicine 05/09/19 documented as of this encounter
[2024-12-02 16:44] LABS: Urine Cytology See Pathology rpt
== END 2024-12-02 09:47 | disposition home or self-care (01) ==
LOC: HO.LAB 09:46
PROVIDERS: PCP Internal Medicine; Visit Provider Urology
DX: N39.0 Urinary tract infection, site not specified (principal); C67.4 Malignant neoplasm of posterior wall of bladder; R35.1 Nocturia
CPT/HCPCS: 52000; 81003; 88112; 99212

== ENCOUNTER 2025-06-09 09:49 | Outpatient (AMB) | payer MEDICARE, OTHER, SELFPAY ==
--- NOTE | 2025-06-09 10:24 | A.OFFVIS_ITS ---
Intake Visit Reasons: cysto Intake Note: Patient is Present for Cystoscopy Urology Med: None: None Blood Thinner: None Acoustical Carpenter Required: No Accompanied by: Self / Same As Patient Allergies No Known Allergies (No Known Allergies*) Allergy (Verified 06/09/25 10:25) HPI Comments Details: Lucas is a pleasant male. He is a patient of Dr. Belle. He is seen for the following urologic condition - bladder cancer superficial high-grade - lower urinary tract symptoms - detrusor hyperactivity with impaired contractility Son Kirill - [phone] Here for check cystoscopy Normal Bladder cancer Superficial High-Grade recurrent Last recurrence 03/22 Initial diagnosis 2016 Prior procedure 07/20 cystoscopy with fulguration Cystoscopy - 07/21 irritated bladder, fulguration areas, - 03/22 left ureteric orifice superficial high-grade - 06/22 healed prostate - 09/21 cysto with bladder biopsy shows chronic inflammation, no evidence disease - 05/23 TURBT superficial recurrence Cytology - 07/24 Negative - 12/[address] 07/21 Che 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 Ex Smoker - 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 Intravesicle therapy - Gemcitabine induction 6 week 04/21, 08/22 3 week boost - 05/23 repeat induction mitomycin-C with cytarabine, 12/22 boost MMC/Cytarabine Lower urinary tract symptoms Has urinary urgency Prior medication finasteride, terazosin Prior procedure TURP, GreenLight laser prostate 03/22 PSA 06/21 0.7 Background diabetes PFSH Medical History Employs prosthetic leg Elevated cholesterol Bladder tumor Urinary tract infection Acute blood loss anemia Hypertension Peripheral vascular disease Diabetes Bladder cancer Surgical History H/O colonoscopy Hx of below knee amputation History of prostate surgery History of transurethral destruction of bladder lesion Social History Household Members: Spouse Housing: House Are you a primary home care giver to a significant other at home: No Do you presently have visiting nurse or other home services: No Alcohol intake: unknown Comment: Sleeping Patient Tobacco Use Status: Former Tobacco user Tobacco use type: Cigarette Second Hand Smoke Exposure: No service: Yes Current occupational status: retired Review of Systems Const Denies chills and Denies fever(s) Card Reports no additional complaints and Denies syncope Resp Denies cough GI Denies abdominal pain and Denies heartburn Reports as per HPI and Denies change in libido Neuro Denies syncope Psych Denies change in libido Endo Denies change in libido Physical Exam Const General: cooperative, healthy appearing, comfortable and no acute distress Orientation/consciousness: patient oriented x3 HEENT Face and sinus: Yes normal facial exam Mouth: moist mucous membranes Neck Neck: Yes normal visual inspection, Yes full ROM and Yes trachea midline Chest Chest palpation & inspection: normal inspection of the chest Resp Effort & Inspection: normal respiratory effort, able to speak in complete sentences and no respiratory distress GI Inspection: Yes normal to inspection Back/Spine/Pelvis Cervical Spine: normal cervical lordosis Thoracic/Lumbar Spine: thoracic and lumbar spine normal to inspection Skin General skin exam: no rashes or lesions noted Neuro General: patient oriented x3, gait normal, tone normal and moves all extremities Extrem General: Yes normal to inspection and Yes capillary refill normal Office Procedures Cystoscopy Consent Discussed risk and benefit or proposed procedure with the patient. Information consent for procedure given to the patient. Discussed technical aspects, risks, benefits and alternatives in full. Addressed all of the patient's questions and concerns regarding the procedure. The patient demonstrated knowledge and understanding. They wish to proceed with this procedure. Preparation The patient was prepped in the usual manner. A x ray developer was present and in the room. Genitalia was prepped with betadine solution in a sterile manner. Lidocaine Jelly 2% was placed into the urethra and 16Fr flexible Olympus cystoscope was inserted into the meatus after adequate lubrication. Procedure Cystoscopy performed using a disposable Urovue digital 16 Emir[place] cystoscope. Meatus circumcised Urethra anterior and posterior urethra normal Prostatic Urethra unremarkable Bladder examination with retroflexion of cystoscope Bladder Orifices normal shape and position Bladder Capacity Normal Trabeculations Grade 0 Cellule Formation None Diverticulum Formation None Mucosal Erythema None Bladder Tumor None [id number] DISPOSABLE SCOPE URO-G FLEXIBLE SCOPE Procedure code (CPT) selection complete Office Meds lidocaine HCl 2 % mucosal jelly in applicator Performing Provider: Tarun Fregoso MD [facility]forming [facility] [place] Administered by: Geovanna Sotelo RN on 06/09/25 10:50 Dose Route Admin Location Dispensed Lot Number Expiration Date [facility] [employer] Architect 10 mL intra-urethral 10 mL nitrofurantoin monohydrate/macrocrystals 100 mg capsule Performing Provider: Tarun Fregoso MD Performing Location: [facility] [place] [facility] Administered by: Geovanna Sotelo RN on 06/09/25 10:50 Dose Route Admin Location Dispensed Lot Number Expiration Date [employer] 100 mg PO 1 cap Results AMB Urinalysis, Automated UA Leukoctes 500 Cristela/uL Last Edit by HARRIS Warren on 06/09/25 10:48 UA Nitrite Negative Last Edit by HARRIS Warren on 06/09/25 10:48 UA Urobilinogen 0.2 mg/dL Last Edit by HARRIS Warren on 06/09/25 10:4 8 UA Protein 15 mg/dL Last Edit by HARRIS Warren on 06/09/25 10:48 UA pH 6.0 Last Edit by Ale Carrion CCM on 06/09/25 10:48 UA Blood 10 Quoc/uL Last Edit by HARRIS Warren on 06/09/25 10:48 UA Specific [place] 1.015 Last Edit by HARRIS Warren on 06/09/25 10: 48 UA Ketone Negative Last Edit by HARRIS Warren on 06/09/25 10:48 UA Bilirubin 0 mg/dL Last Edit by HARRIS Warren on 06/09/25 10:48 UA Glucose 0 mg/dL Last Edit by HARRIS Warren on 06/09/25 10:48 Results Reviewed Results Reviewed: Laboratory Last Values Urine pH (Auto) 6.0 06/09/25 10:47 Specific [place] (Auto) 1.015 06/09/25 10:47 Urine Protein (Auto) 15 mg/dL 06/09/25 10:47 Glucose (UA)(Auto) 0 mg/dL 06/09/25 10:47 Urine Ketones (Auto) Negative 06/09/25 10:47 Urine Blood (Auto) 10 Quoc/uL 06/09/25 10:47 Urine Nitrite (Auto) Negative 06/09/25 10:47 Urine Bilirubin (Auto) 0 mg/dL 06/09/25 10:47 Urine Urobilinogen (Auto) 0.2 mg/dL 06/09/25 10:47 Leukocyte Esterase (Auto) 500 Cristela/uL 06/09/25 10:47 Assessment & Plan Assessment & Plan (1) Bladder cancer: Comment: Superficial low-grade recurrence initial 2015, superficial high-grade 03/22, recurrent 05/23 Code(s): C67.9 - Malignant neoplasm of bladder, unspecified Category: Medical Qualifiers: Bladder location: posterior wall Qualified Code(s): C67.4 - Malignant neoplasm of posterior wall of bladder (2) Overactive bladder: Code(s): N32.81 - Overactive bladder Category: Medical Plan Six-month follow-up Orders: Orders AMB Cystoscopy 06/09/25 C67.4 - Malignant neoplasm of posterior wall of bladder AMB Urinalysis Automated 06/09/25 Z13.9 - Encounter for screening, unspecified Patient Instructions: This note is constructed using voice recognition software. While every effort has been made to ensure accuracy aircraft machinist helper errors may have been included. Imaging studies, laboratory and physical exam results were discussed and reviewed in detail. No major barriers to patient understanding were identified. An opportunity to ask questions regarding the treatment plan was provided. All questions were answered. The patient expressed understanding and agreement with the above treatment plan. The patient is aware they should contact our office by phone for worsening of their current condition or the appearance of new urologic symptoms. Compliance is encouraged with any medications and followup testing that is ordered. It is a privilege to participate in the urologic care of your patient. If you have any questions or concerns regarding treatment for the above conditions, or other urologic issues, please do not hesitate to contact me. The office telephone contact is [phone]. Sincerely, Dr Tarun Fregoso MD, KEV[facility] - Urology Compassionate Specialist Care for the Genitourinary System Coding Level of Care Code Est Pt Level 3 (17292) Diagnoses Malignant neoplasm of posterior wall of urinary bladder C67.4 Bladder location: posterior wall Overactive bladder N32.81 CPT Codes Cystoscopy - CPT: 23648-[id number] ([id number])
== END 2025-06-09 11:38 | disposition home or self-care (01) ==
LOC: HO.HUSH 09:49
PROVIDERS: PCP Internal Medicine; Visit Provider Urology
DX: C67.4 Malignant neoplasm of posterior wall of bladder (principal); Z13.9 Encounter for screening, unspecified
CPT/HCPCS: 52000

== ENCOUNTER → 2025-06-09 09:49 | Outpatient (BNVA) | payer MEDICARE, OTHER, SELFPAY | PROVIDERS: PCP Internal Medicine; Visit Provider Urology | DX: C67.4 Malignant neoplasm of posterior wall of bladder (principal); N32.81 Overactive bladder | CPT/HCPCS: 52000; 81003 ==